=== PATIENT | female | born 1955 | race American Indian/Alaskan Native ===

== ENCOUNTER 2016-08-30 08:40 | Emergency (ER) | payer OTHER ==
[2016-08-30 10:13] LABS: Basophils % (Auto) 0.4 % (0.0-1.8); Hematocrit 33.5 % (30.3-42.9); Hemoglobin 10.9 gm/dl (10.1-14.3); Mean Corpuscular HGB Conc 32 % (30-34); Mean Corpuscular Hemoglobin 29 pg (28-32); Mean Corpuscular Volume 88 fl (79-97); Platelet Count 255 K/mm3 (140-440); Red Blood Count 3.82 M/mm3 (3.65-5.03); White Blood Count 6.2 K/mm3 (4.5-11.0)
[2016-08-30] MEDS ORDERED: NON-FORMULARY (Dolutegravir 50 MG) PO ONE (10:20)
[2016-08-30] MEDS ORDERED: VIREAD PO ONE (10:30)
[2016-08-30] MEDS ORDERED: EMTRIVA PO ONE (10:30)
[2016-08-30 10:31] LABS: Alanine Aminotransferase 15 units/L (7-56); Albumin 4.2 g/dL (3.9-5); Albumin/Globulin Ratio 1.1 %; Anion Gap 18 mmol/L; BUN/Creatinine Ratio 12.63; Blood Urea Nitrogen 24 mg/dL (7-17); Calcium 9.3 mg/dL (8.4-10.2); Carbon Dioxide 27 mmol/L (22-30); Chloride 98.6 mmol/L (98-107); Glucose 75 mg/dL (65-100); Potassium 3.6 mmol/L (3.6-5.0); Sodium 140 mmol/L (137-145); Total Protein 7.9 g/dL (6.3-8.2)
[2016-08-30 10:58] LABS: Bilirubin,Direct < 0.2 mg/dL (0-0.2)
[2016-08-30] MEDS ORDERED: NON-FORMULARY PO ONE (11:00)
[2016-08-30] MEDS ORDERED: ISENTRESS PO SCH ×3 (11:04→22:00)
[2016-08-30 11:10] LABS: HIV-1 Antigen p24 Non React (Non React); HIVR-1/2 Ab Non React (Non React)
[2016-08-30] MEDS ORDERED: CATAPRES ONE (11:35)
[2016-08-30] MEDS ORDERED: CATAPRES PO ONE (11:40)
[2016-08-30 12:00] LABS: Bacteria,Urine 1+ /HPF (Negative); Bilirubin,Urine NEG (Negative); Blood,Urine SM (Negative); Ketones,Urine NEG (Negative); Leukocyte Esterase,Urine SM (Negative); Mucus,Urine FEW /HPF; Nitrite,Urine NEG (Negative); Protein,Urine >500 mg/dL (Negative); Urobilinogen,Urine < 2.0 mg/dL (<2.0)
[2016-08-30 12:05] LABS: Alkaline Phosphatase 112 units/L (35-129)
[2016-08-30 12:50] VITALS: BP 156/101
--- NOTE | 2016-09-01 08:08 | Emergency Department Report ---
Entered by BAILEE MARQUEZ, acting as scribe for RACQUEL NORMAN PA. 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 She denies any bleeding or pain, but reports a mild tingling and burning sensation, noting the needle was a Heparin injection. Pt admits to irrigating her hand thoroughly with cold water immediately after the incident. Pt denies Hx of infectious diseases. She states she is unsure if the patient in question has any known medical problems, noting it was an approximately 60 y/o male being seen as a cardiac patient. 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 She denies chest pain, SOB, or extremity numbness or tingling. She has no additional complaints. Patient blood pressure elevated in triage. To 24/110 she denies any chest pain, headache, dizziness, nausea or vomiting, numbness or tingling, headache or shortness of breath. Patient took her hydralazine and losartan. ED Past Medical Hx - Past Medical History Previous Medical History?: Yes Hx Hypertension: Yes Hx CVA: No Hx Heart Attack/AMI: No Hx Congestive Heart Failure: No Hx Diabetes: Yes Hx Deep Vein Thrombosis: No Hx Pulmonary Embolism: No Hx GERD: No Hx Liver Disease: No Hx Renal Disease: No Hx Sickle Cell Disease: No Hx Arthritis: No Hx Headaches / Migraines: No Hx Seizures: No Hx Kidney Stones: No - Surgical History Past Surgical History?: Yes Additional Surgical History: - Family History Family history: diabetes, hypertension - Social History Smoking Status: Never Smoker Substance Use Type: None - Medications Home Medications: Home Medications Medication Instructions Recorded Confirmed Last Taken Type Acetaminophen/Codeine [Tylenol #3] 1 tab PO Q6H PRN #20 tab 09/04/14 Unknown Rx ED Review of Systems ROS: Stated complaint: EMPLOYEE/NEEDLE STICK TO R HAND Other details as noted in HPI Comment: All other systems reviewed and negative Constitutional: denies: chills, fever Eyes: denies: eye pain, eye discharge ENT: denies: ear pain, throat pain, congestion Respiratory: no symptoms reported Cardiovascular: denies: chest pain, palpitations, edema, syncope Gastrointestinal: denies: abdominal pain, nausea, vomiting, diarrhea, constipation Musculoskeletal: denies: back pain, joint swelling, arthralgia Skin: denies: rash Neurological: denies: headache, weakness, numbness, paresthesias, confusion, abnormal gait, vertigo Physical Exam - Physical Exam Vital Signs: Vital Signs 08/30/16 08:45 Temperature 98.6 F Pulse Rate 70 Respiratory 16 Rate Blood Pressure 224/110 O2 Sat by Pulse 100 Oximetry Vital Signs 08/30/16 08/30/16 08/30/16 08:45 11:42 12:49 Temperature 98.6 F 98.7 F Pulse Rate 70 74 72 Respiratory 16 16 Rate Blood Pressure 224/110 226/105 Blood Pressure 156/101 [Left] O2 Sat by Pulse 100 100 Oximetry General: This is a 61-year-old female well-nourished well-developed in no acute distress. Physical Exam: Head: Normocephalic atraumatic Mouth: Moist, no pharyngeal exudate or erythema. Uvula is midline and oral airway is patent. No facial swelling. No peritonsillar abscesses. Nose: Normal mucosa. Maxillary and frontal sinuses nontender to palpate Neck: Supple, no C-spine tenderness, no tracheal deviation. Nontender to palpate. no adenopathy Neurological: GCS 15, speech is clear and fluid, negative pronator drift, negative Romberg. Gait is normal, no facial drooping noted. 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 No sensory or motor deficit noted. Reflexes are at 2+ . Normal 2 point discrimination. Abdomen: Soft, nontender to palpate in all quadrants, normal bowel sounds in all quadrant and negative CVA tenderness bilaterally. Eyes: Bilateral pupils equal and reactive to light, bilateral EOM intact. Bilateral sclera and conjunctiva without injection. Normal accommodation. No Lungs: Clear to auscultate bilaterally no rhonchi wheezes or rales. Normal work of breathing extremity; No CCE. +2 pulses. No neurovascular compromise Cardiovascular: S1-S2, regular rate rhythm. No murmurs. Skin: clean Dry , no rash no lesions . Noted small entrance wound to right palm. No active bleeding. Psych: Normal mood and behavior ED Course Vital Signs 08/30/16 08:45 Temperature 98.6 F Pulse Rate 70 Respiratory 16 Rate Blood Pressure 224/110 O2 Sat by Pulse 100 Oximetry Vital Signs 08/30/16 08/30/16 08:45 11:42 Temperature 98.6 F Pulse Rate 70 74 Respiratory 16 Rate Blood Pressure 224/110 226/105 O2 Sat by Pulse 100 Oximetry Vital Signs 08/30/16 08/30/16 08/30/16 08:45 11:42 12:49 Temperature 98.6 F 98.7 F Pulse Rate 70 74 72 Respiratory 16 16 Rate Blood Pressure 224/110 226/105 Blood Pressure 156/101 [Left] O2 Sat by Pulse 100 100 Oximetry - Reevaluation(s) Reevaluation #1: 08/30/16 11:40 Preexposure protocol activated and patient given medication. Blood pressure was elevated initially and she took her hydralazine 50 mg and losartan 100 mg. She was asymptomatic with elevated blood pressure. Upon reevaluation of blood pressure, reported that patient blood pressure was still significantly elevated says she was given clonidine 0.2 mg and recheck her blood pressure. He remains asymptomatic. Rapid HIV 1/2 negative. 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 Reevaluation #2: 08/30/16 11:43 I communicated with warehouse packaging supervisor on several occasion regarding in preexposure protocol. I also spoke to Dr. Norman who is infectious disease and HIV specialist on-call for [facility]. He updated me on current preexposure protocol and medication. Patient to be started on Truvada. His only has split doses. The patient was given due to medication that combines to make Truvada. She is to take it every 48 hours due to her diabetes and chronic renal insufficiency. She was also given Reevaluation #3: 08/30/16 13:30 Reevaluation of blood pressure, better after clonidine. Patient instructed that she will need to keep a log of her blood pressure and schedule appointment with her primary care doctor for follow-up reevaluation. ED Medical Decision Making - Lab Data Result diagrams: 08/30/16 10:09 08/30/16 09:47 Lab Results 08/30/16 08/30/16 Range/Units 09:47 10:09 WBC 6.2 (4.5-11.0) K/mm3 RBC 3.82 (3.65-5.03) M/mm3 Hgb 10.9 (10.1-14.3) gm/dl Hct 33.5 (30.3-42.9) % MCV 88 (79-97) fl MCH 29 (28-32) pg MCHC 32 (30-34) % RDW 15.0 (13.2-15.2) % Plt Count 255 (140-440) K/mm3 Lymph % (Auto) 35.8 H (13.4-35.0) % [place] % (Auto) 15.8 H (0.0-7.3) % Eos % (Auto) 6.0 H (0.0-4.3) % Baso % (Auto) 0.4 (0.0-1.8) % Lymph # 2.2 (1.2-5.4) K/mm3 [place] # 1.0 H (0.0-0.8) K/mm3 Eos # 0.4 (0.0-0.4) K/mm3 Baso # 0.0 (0.0-0.1) K/mm3 Seg Neutrophils % 42.0 (40.0-70.0) % Seg Neutrophils # 2.6 (1.8-7.7) K/mm3 Sodium 140 (137-145) mmol/L Potassium 3.6 (3.6-5.0) mmol/L Chloride 98.6 Urinalysis and microbe pending (22-30) mmol/L Anion Gap 18 mmol/L BUN 24 H (7-17) mg/dL Creatinine 1.9 H (0.7-1.2) mg/dL Estimated GFR 33 ml/min BUN/Creatinine Ratio 12.63 % Glucose 75 (65-100) mg/dL Calcium 9.3 (8.4-10.2) mg/dL Total Bilirubin 0.20 (0.1-1.2) mg/dL Direct Bilirubin < 0.2 (0-0.2) mg/dL AST 22 (5-40) units/L ALT 15 (7-56) units/L Total Protein 7.9 (6.3-8.2) g/dL Albumin 4.2 (3.9-5) g/dL Albumin/Globulin Ratio 1.1 % HIV 1&2 Antibody Rapid Non react (Non React) HIV P24 Antigen Non react (Non React) Lab Results 08/30/16 08/30/16 08/30/16 Range/Units 09:47 10:09 Unknown WBC 6.2 (4.5-11.0) K/mm3 RBC 3.82 (3.65-5.03) M/mm3 Hgb 10.9 (10.1-14.3) gm/dl Hct 33.5 (30.3-42.9) % MCV 88 (79-97) fl MCH 29 (28-32) pg MCHC 32 (30-34) % RDW 15.0 (13.2-15.2) % Plt Count 255 (140-440) K/mm3 Lymph % (Auto) 35.8 H (13.4-35.0) % [place] % (Auto) 15.8 H (0.0-7.3) % Eos % (Auto) 6.0 H (0.0-4.3) % Baso % (Auto) 0.4 (0.0-1.8) % Lymph # 2.2 (1.2-5.4) K/mm3 [place] # 1.0 H (0.0-0.8) K/mm3 Eos # 0.4 (0.0-0.4) K/mm3 Baso # 0.0 (0.0-0.1) K/mm3 Seg Neutrophils % 42.0 (40.0-70.0) % Seg Neutrophils # 2.6 (1.8-7.7) K/mm3 Sodium 140 (137-145) mmol/L Potassium 3.6 (3.6-5.0) mmol/L Chloride 98.6 (98-107) mmol/L Carbon Dioxide 27 (22-30) mmol/L Anion Gap 18 mmol/L BUN 24 H (7-17) mg/dL Creatinine 1.9 H (0.7-1.2) mg/dL Estimated GFR 33 ml/min BUN/Creatinine Ratio 12.63 % Glucose 75 (65-100) mg/dL Calcium 9.3 (8.4-10.2) mg/dL Total Bilirubin 0.20 (0.1-1.2) mg/dL Direct Bilirubin < 0.2 (0-0.2) mg/dL AST 22 (5-40) units/L ALT 15 (7-56) units/L Alkaline Phosphatase 112 (35-129) units/L Total Protein 7.9 (6.3-8.2) g/dL Albumin 4.2 (3.9-5) g/dL Albumin/Globulin Ratio 1.1 % Urine Color Yellow (Yellow) Urine Turbidity Clear (Clear) Urine pH 5.0 (5.0-7.0) Ur Specific [place] 1.015 (1.003-1.030) Urine Protein >500 (Negative) mg/dL Urine Glucose (UA) Neg (Negative) mg/dL Urine Ketones Neg (Negative) mg/dL Urine Blood Sm (Negative) Urine Nitrite Neg (Negative) Urine Bilirubin Neg (Negative) Urine Urobilinogen < 2.0 (<2.0) mg/dL Ur Leukocyte Esterase Sm (Negative) Urine WBC (Auto) 4.0 (0.0-6.0) /HPF Urine RBC (Auto) 5.0 (0.0-6.0) /HPF U Epithel Cells (Auto) 1.0 (0-13.0) /HPF Urine Bacteria (Auto) 1+ (Negative) /HPF Urine Mucus Few /HPF HIV 1&2 Antibody Rapid Non react (Non React) HIV P24 Antigen Non react (Non React) - Medical Decision Making ED course: Patient sent here from floor after working last night. He said that she was stuck by a needle after removing trash. She said that this happened in the patient room but she is unsure whether or not the patient is a. Patient sent to emergency room to start preexposure protocol. Sent a history of diabetes and high blood pressure and her lab results revealed that her GFR is 33 , BUN 24 and creatinine is 1.9. Patient verifies that she is following an nephrology for chronic renal insufficiency. All other labs were normal except her urinalysis had greater than 500 glucose. Preexposure labs drawn and sent patient is negative for rapid HIV. Hepatic panel stable. Acute hepatitis panel sent and resulted in a couple days. Patient's CBC is stable. This was communicated to patient. Pre and post counseling done with patient. Consent signed. Preexposure protocol required patient to be treated in the emergency room with Antiviral medication. I called the [facility] and spoke with infectious disease doctor/HIV specialist and he recommended that patient starts on Truvada every 48 hours first dose to be given in emergency room once per day. This is because patient is with renal insufficiency and she is renal dosed for over 48 hours. Also patient was started on Raltegravir 400mg. Critical care attestation.: If time is entered above; I have spent that time in minutes in the direct care of this critically ill patient, excluding procedure time. ED Disposition Clinical Impression: Contact with and (suspected) exposure to other communicable diseases, Elevated blood pressure reading with diagnosis of hypertension, Glucosuria, Renal insufficiency Disposition: DISCHARGED TO HOME OR SELFCARE Is pt being admited?: No Does the pt Need Aspirin: No Condition: Stable Instructions: Needle Stick Injuries (ED), Hypertension (ED), Impaired Kidney Function (ED) Additional Instructions: Please follow up with [facility] 09/01/2015 at 8am Your linoleum tile floor layer and primary care physician to inform us new medication. Take antiviral medication as discussed. Take one tonight and one in the morning. [employer] [facility] guide juice through the process. Please keep a log of her blood pressure and take to primary care physician with [facility] as her blood pressure was elevated today Take blood pressure medication as prescribed. Referrals: Your, Carburetor Expert [Other] - 08/31/16 PRIMARY CARE, [Primary Care Provider] - 2-3 Days Employee ,[facility] [Other] - 08/31/16 8:00 am Forms: Accompanied Note, Work/School Release Form(ED) This documentation as recorded by the JIMMY sandoval AHSAN,accurately reflects the service I personally performed and the decisions made by me,RACQUEL NORMAN PA.
== END 2016-08-30 14:00 | disposition home or self-care (01) ==
LOC: ED 08:40
DX: N28.9 Disorder of kidney and ureter, unspecified (principal); I10 Essential (primary) hypertension; R81 Glycosuria; E11.9 Type 2 diabetes mellitus without complications; Z20.89 Contact with and (suspected) exposure to other communicable diseases
CPT/HCPCS: 36415; 80048; 80074; 81001; 85025; 87806; 99283; J3246

== ENCOUNTER 2018-04-16 07:31 | Emergency (ER) | payer BC, OTHER ==
[2018-04-16] MEDS ORDERED: NORMODYNE IV ONE (08:18)
[2018-04-16] MEDS ORDERED: MORPHINE IV ONE (08:18)
[2018-04-16] MEDS ORDERED: ZOFRAN IV ONE (08:18)
--- NOTE | 2018-04-16 09:21 | XRay Report ---
FINAL REPORT EXAM: XR CHEST 1V AP HISTORY: HTN TECHNIQUE: Frontal chest x-ray. PRIORS: None currently available. FINDINGS: Cardiac silhouette is within normal limits. There is no effusion. There is no pneumothorax. There is no consolidation. There are no suspicious osseous lesions. IMPRESSION: No acute cardiopulmonary findings.
[2018-04-16 09:24] LABS: Basophils # (Auto) 0.1 K/mm3 (0.0-0.1); Basophils % (Auto) 0.6 % (0.0-1.8); Eosinophils # (Auto) 0.2 K/mm3 (0.0-0.4); Eosinophils % (Auto) 2.6 % (0.0-4.3); Hematocrit 30.1 % (30.3-42.9); Mean Corpuscular HGB Conc 33 % (30-34); Mean Corpuscular Hemoglobin 29 pg (28-32); Mean Corpuscular Volume 86 fl (79-97); Monocytes % (Auto) 11.6 % (0.0-7.3); Platelet Count 246 K/mm3 (140-440); Red Blood Count 3.52 M/mm3 (3.65-5.03); Red Cell Distribution Width 16.2 % (13.2-15.2)
[2018-04-16 09:26] LABS: INR 0.75 (0.87-1.13)
[2018-04-16 09:39] LABS: Creatine Kinase MB 3.9 ng/mL (0.0-4.0)
[2018-04-16 09:40] LABS: Alanine Aminotransferase 12 units/L (7-56); Albumin 4.4 g/dL (3.9-5); BUN/Creatinine Ratio 12; Blood Urea Nitrogen 37 mg/dL (7-17); Calcium 8.9 mg/dL (8.4-10.2); Hemolysis Index 44
--- NOTE | 2018-04-16 09:44 | Emergency Department Report ---
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 She states that it's somewhat goes to the occipital area of her head and slightly down the back. Complains of tenderness to palpation of the left trapezius area. This is augmented by movement. She does not complain of any focal neurological change. She states that it feels like a "crook" in her neck. However, she states that it is very unusual for her to have any sort of neck pain. She does not have any chronic neck condition. She presented to the emergency department with significantly uncontrolled hypertension. She denied any other symptom, neurological change shortness of breath or chest pain. 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 She states she works the night before. Yesterday a.m. she went to sleep at about 10. She woke up at 3:30 and noted that she had the above neck pain. The patient denied dizziness problems with her coordination or gait numbness weakness or difficulty with speech or her vision. -: hour(s) (since yesterday) Location: head, back, left (neck pain is principal) Radiation: other (as above described) Quality: aching Consistency: intermittent Improves with: none Worsens with: movement Associated Symptoms: denies other symptoms Treatments Prior to Arrival: none - Related Data Previous Rx's Medication Instructions Recorded Last Taken Type Acetaminophen/Codeine [Tylenol #3] 1 tab PO Q6H PRN #20 tab 09/04/14 Unknown Rx Allergies Allergy/AdvReac Type Severity Reaction Status Date / Time No Known Allergies Allergy Verified 04/16/18 10:45 ED Review of Systems ROS: Stated complaint: HYPERTENSION Other details as noted in HPI Constitutional: denies: chills, fever Eyes: denies: eye pain, eye discharge, vision change ENT: denies: ear pain, throat pain Respiratory: denies: cough, shortness of breath, wheezing Cardiovascular: denies: chest pain, palpitations Endocrine: no symptoms reported Gastrointestinal: denies: abdominal pain, nausea, diarrhea Genitourinary: denies: urgency, dysuria, discharge Musculoskeletal: as per HPI. denies: joint swelling, arthralgia Skin: denies: rash, lesions Neurological: headache. denies: weakness, paresthesias Psychiatric: denies: anxiety, depression Hematological/Lymphatic: denies: easy bleeding, easy bruising ED Past Medical Hx - Past Medical History Previous Medical History?: Yes Hx Hypertension: Yes Hx CVA: No Hx Heart Attack/AMI: No Hx Congestive Heart Failure: No Hx Diabetes: Yes Hx Deep Vein Thrombosis: No Hx Pulmonary Embolism: No Hx GERD: No Hx Liver Disease: No Hx Renal Disease: No Hx Sickle Cell Disease: No Hx Arthritis: No Hx Headaches / Migraines: No Hx Seizures: No Hx Kidney Stones: No Additional medical history: Broken right leg. Chronic renal insufficiency. Hypertension - Surgical History Past Surgical History?: Yes Additional Surgical History: - Social History Smoking Status: Never Smoker Substance Use Type: None - Medications Home Medications: Home Medications Medication Instructions Recorded Confirmed Last Taken Type Acetaminophen/Codeine [Tylenol #3] 1 tab PO Q6H PRN #20 tab 09/04/14 Unknown Rx ED Physical Exam - General Limitations: No Limitations General appearance: alert, in no apparent distress - Head Head exam: Present: atraumatic, normocephalic - Eye Eye exam: Present: normal appearance - ENT ENT exam: Present: mucous membranes moist - Neck Neck exam: Present: normal inspection, tenderness, other (tenderness is really very specific to the left trapezius area and reproducible with palpation. Patient has some apprehension and full range of motion could not be tested passively. I don't think she has any meningismus though. Carotids are without bruits.). Absent: meningismus, lymphadenopathy, thyromegaly - Respiratory Respiratory exam: Present: normal lung sounds bilaterally. Absent: respiratory distress - Cardiovascular Cardiovascular Exam: Present: regular rate, normal rhythm. Absent: systolic m urmur, diastolic murmur, rubs, gallop - GI/Abdominal GI/Abdominal exam: Present: soft, normal bowel sounds. Absent: distended, tenderness, guarding, rebound, rigid - Extremities Exam Extremities exam: Present: normal inspection, normal capillary refill. Absent: calf tenderness - Back Exam Back exam: Present: normal inspection. Absent: CVA tenderness (R), CVA tenderness (L) - Neurological Exam Neurological exam: Present: alert, oriented X3, CN II-XII intact. Absent: motor sensory deficit - Psychiatric Psychiatric exam: Present: normal affect, normal mood - Skin Skin exam: Present: warm, dry, intact, normal color. Absent: rash ED Course Vital Signs 04/16/18 04/16/18 04/16/18 07:34 08:20 09:00 Temperature 97.8 F 97.8 F Pulse Rate 68 70 70 Respiratory 20 18 Rate Blood Pressure 203/88 195/88 Blood Pressure 195/88 [Right] O2 Sat by Pulse 100 99 Oximetry 04/16/18 04/16/18 04/16/18 10:17 10:30 10:46 Temperature Pulse Rate 67 68 Respiratory 13 14 Rate Blood Pressure 154/71 154/71 Blood Pressure [Right] O2 Sat by Pulse 92 98 94 Oximetry 04/16/18 04/16/18 04/16/18 11:00 11:16 11:30 Temperature Pulse Rate 73 73 71 Respiratory 13 14 18 Rate Blood Pressure 178/118 181/103 181/103 Blood Pressure [Right] O2 Sat by Pulse 96 98 96 Oximetry - Reevaluation(s) Reevaluation #1: The patient's last known well time is 10 AM on 03/26/2018. Her NIH stroke score is 0. She is not a candidate for TPA. She has an occipital stroke which may very well be subacute. I am concerned with the patient's left-sided neck pain that she may have a vertebral artery dissection. She has hypertension which is a risk factor thereof. I do not believe aortic dissection is at all likely. Her mediastinum is normal. With this in mind the patient meets criteria for urgent MR studies. I discussed this with the radiologist available. They agree as well. I am unable to ob tain urgent MR studies or any MR studies at this facility until Wednesday. I do not think that this is an acceptable delay under the circumstances. If the patient has a vertebral artery dissection treatment will vary to include possible anticoagulation. Thus, I am endeavoring to transfer the patient to [place]. I will speak with the stroke neurologist there. 04/16/18 10:57 Reevaluation #2: I had an extensive conversation with Dr. Rocha the stroke neurologist at [place]. He agreed that the patient should obtain an urgent MR study. This study is unavailable at our facility until Wednesday. As such the patient will require transfer to a comprehensive stroke center. Dr. Rocha was gracious to accept this patient for further care and evaluation. 04/16/18 11:53 ED Medical Decision Making - Lab Data Result diagrams: 04/16/18 08:57 04/16/18 08:57 Laboratory Results - last 24 hr 04/16/18 04/16/18 04/16/18 08:57 08:57 08:57 WBC 8.8 RBC 3.52 L Hgb 10.0 L Hct 30.1 L MCV 86 MCH 29 MCHC 33 RDW 16.2 H Plt Count 246 Lymph % (Auto) 23.0 [place] % (Auto) 11.6 H Eos % (Auto) 2.6 Baso % (Auto) 0.6 Lymph # 2.0 [place] # 1.0 H Eos # 0.2 Baso # 0.1 Seg Neutrophils % 62.2 Seg Neutrophils # 5.5 PT 10.9 L INR 0.75 L Thrombin Time Sodium 136 L Potassium 3.7 Chloride 98.0 Carbon Dioxide 20 L Anion Gap 22 BUN 37 H Creatinine 3.0 H Estimated GFR 19 BUN/Creatinine Ratio 12 Glucose 94 Calcium 8.9 Magnesium 1.20 L Total Bilirubin 0.30 ALT 12 Alkaline Phosphatase 108 CK-MB (CK-2) 3.9 Troponin T 0.021 NT-Pro-B Natriuret Pep 1142 H Total Protein 8.2 Albumin 4.4 Albumin/Globulin Ratio 1.2 04/16/18 08:57 WBC RBC Hgb Hct MCV MCH MCHC RDW Plt Count Lymph % (Auto) [place] % (Auto) Eos % (Auto) Baso % (Auto) Lymph # [place] # Eos # Baso # Seg Neutrophils % Seg Neutrophils # PT INR Thrombin Time 16.0 Sodium Potassium Chloride Carbon Dioxide Anion Gap BUN Creatinine Estimated GFR BUN/Creatinine Ratio Glucose Calcium Magnesium Total Bilirubin ALT Alkaline Phosphatase CK-MB (CK-2) Troponin T NT-Pro-B Natriuret Pep Total Protein Albumin Albumin/Globulin Ratio Laboratory Results - last 24 hr 04/16/18 04/16/18 04/16/18 08:57 08:57 08:57 WBC 8.8 RBC 3.52 L Hgb 10.0 L Hct 30.1 L MCV 86 MCH 29 MCHC 33 RDW 16.2 H Plt Count 246 Lymph % (Auto) 23.0 [place] % (Auto) 11.6 H Eos % (Auto) 2.6 Baso % (Auto) 0.6 Lymph # 2.0 [place] # 1.0 H Eos # 0.2 Baso # 0.1 Seg Neutrophils % 62.2 Seg Neutrophils # 5.5 PT 10.9 L INR 0.75 L APTT < 20.0 L Thrombin Time Sodium 136 L Potassium 3.7 Chloride 98.0 Carbon Dioxide 20 L Anion Gap 22 BUN 37 H Creatinine 3.0 H Estimated GFR 19 BUN/Creatinine Ratio 12 Glucose 94 Calcium 8.9 Magnesium 1.20 L Total Bilirubin 0.30 Direct Bilirubin < 0.2 Indirect Bilirubin 0.1 ALT 12 Alkaline Phosphatase 108 CK-MB (CK-2) 3.9 Troponin T 0.021 NT-Pro-B Natriuret Pep 1142 H Total Protein 8.2 Albumin 4.4 Albumin/Globulin Ratio 1.2 04/16/18 08:57 WBC RBC Hgb Hct MCV MCH MCHC RDW Plt Count Lymph % (Auto) [place] % (Auto) Eos % (Auto) Baso % (Auto) Lymph # [place] # Eos # Baso # Seg Neutrophils % Seg Neutrophils # PT INR APTT Thrombin Time 16.0 Sodium Potassium Chloride Carbon Dioxide Anion Gap BUN Creatinine Estimated GFR BUN/Creatinine Ratio Glucose Calcium Magnesium Total Bilirubin Direct Bilirubin Indirect Bilirubin ALT Alkaline Phosphatase CK-MB (CK-2) Troponin T NT-Pro-B Natriuret Pep Total Protein Albumin Albumin/Globulin Ratio - Radiology Data Radiology results: report reviewed (patient has a sizable hypodensity in the left occipital lobe.) Critical Care Time: Yes Critical care time in (mins) excluding proc time.: 90 Critical care attestation.: If time is entered above; I have spent that time in minutes in the direct care of this critically ill patient, excluding procedure time. ED Disposition Clinical Impression: Occipital stroke, Poorly-controlled hypertension, Neck pain on left side, Magnesium deficiency Disposition: OP ADMIT IP TO THIS HOSP Is pt being admited?: Yes Does the pt Need Aspirin: Yes Condition: Stable Referrals: PRIMARY CARE, [Primary Care Provider] - 3-5 Days Time of Disposition: 11:56
--- NOTE | 2018-04-16 09:55 | Cat Scan Report ---
FINAL REPORT EXAM: CT HEAD/BRAIN WO CON HISTORY: neuro deficits < 6hrs or sx present upon awakening TECHNIQUE: CT of the Head without IV contrast. PRIORS: None currently available. FINDINGS: Decreased attenuation regions in the periventricular and subcortical white matter are nonspecific and may represent small vessel ischemic disease, encephalopathy, edema, or a demyelinating process. Smal l vessel ischemic disease (leukoaroaiosis) favored. Vascular calcifications. Ill-defined 1.7 cm area of decreased attenuation at the inferior left cerebellar hemispheres may repr esent subacute to chronic ischemia. There is no hemorrhage. There is no midline shift. There is no hydrocephalus. There is no mass. Age appropriate graff-white matter attenuation is noted. There is no calvarial fracture. The temporal bones demonstrate aerated mastoid air cells. The middle ears appear unremarkable. Mild mucosal thickening in the left ethmoid sinuses. Globes are intact. IMPRESSION: Small area of subacute to chronic ischemia at the inferior left cerebellar hemisphere. Correlation wi th MRI may be helpful if clinically indicated. Also chronic ischemic disease.
--- NOTE | 2018-04-16 09:59 | Cat Scan Report ---
FINAL REPORT EXAM: CT CERVICAL SPINE WO CON HISTORY: neck pain TECHNIQUE: CT of the Cervical Spine without IV contrast. Coronal and sagittal reformatted images paul e provided. PRIORS: None currently available. FINDINGS: There is no fracture. There is no subluxation. There is no atlantooccipital dislocation. C1-C2: Mild to moderate arthritis. No subluxation. No significant canal narrowing. [id number] discogenic disease C4-C7. Minimal to mild spinal canal narrowing. Some neural forami nal narrowing. Remaining cervical levels do not demonstrate significant canal or foraminal narrowing. Prevertebral soft tissue structures are unremarkable. Heterogenous thyroid gland. A distinct nodules not evident; however, nodules are not excluded. IMPRESSION: No fracture. [id number] discogenic disease.
[2018-04-16] MEDS ORDERED: MAG-OX PO SCH (10:00)
[2018-04-16 10:03] LABS: Partial Thromboplastin Time < 20.0 Sec. (24.2-36.6)
[2018-04-16 10:10] LABS: Bilirubin,Direct < 0.2 mg/dL (0-0.2)
[2018-04-16] MEDS ORDERED: ASPIRIN PO ONE (10:25)
[2018-04-16 12:20] VITALS: BP 185/84
== END 2018-04-16 12:15 | disposition admitted as inpatient to this hospital (09) ==
LOC: ED 07:31
DX: I63.9 Cerebral infarction, unspecified (principal); M54.2 Cervicalgia; E61.2 Magnesium deficiency; E11.22 Type 2 diabetes mellitus with diabetic chronic kidney disease; I12.9 Hypertensive chronic kidney disease with stage 1 through stage 4 chronic kidney disease, or unspecified chronic kidney disease; N18.9 Chronic kidney disease, unspecified
CPT/HCPCS: 36415; 70450; 71045; 72125; 80048; 80076; 82550; 82553; 82962; 83735; 83880; 84484; 85025; 85610; 85670; 85730; 93005; 93010; 96374; 96375; 99291; 99292; J2270; J2405

== ENCOUNTER 2018-08-22 07:37 | Outpatient (CLI) | payer BC ==
[2018-08-22 08:24] LABS: Albumin 4.6 g/dL (3.9-5); Calcium 9.1 mg/dL (8.4-10.2); Chol/HDL Ratio 2.74 %
[2018-08-22 09:50] LABS: Creatinine,Urine 187.2 mg/dL (0.1-20.0)
[2018-08-22 10:04] LABS: Microalbumin/Creatinine Ratio 261.7 ug/mg
[2018-08-22 10:35] LABS: Basophils # (Auto) 0.1 K/mm3 (0.0-0.1); Basophils % (Auto) 0.9 % (0.0-1.8); Eosinophils # (Auto) 0.2 K/mm3 (0.0-0.4); Eosinophils % (Auto) 4.1 % (0.0-4.3); Hematocrit 28.4 % (30.3-42.9); Hemoglobin 9.5 gm/dl (10.1-14.3); Lymphocytes # (Auto) 2.2 K/mm3 (1.2-5.4); Lymphocytes % (Auto) 35.8 % (13.4-35.0); Mean Corpuscular HGB Conc 34 % (30-34); Mean Corpuscular Volume 87 fl (79-97); Monocytes # (Auto) 0.8 K/mm3 (0.0-0.8); Monocytes % (Auto) 12.8 % (0.0-7.3); Platelet Count 282 K/mm3 (140-440); Red Blood Count 3.26 M/mm3 (3.65-5.03); Red Cell Distribution Width 16.6 % (13.2-15.2)
== END 2018-08-22 07:38 | disposition home or self-care (01) ==
LOC: LAB 07:37
PROVIDERS: ATTEND Internal Medicine
DX: E11.9 Type 2 diabetes mellitus without complications (principal); I11.9 Hypertensive heart disease without heart failure
CPT/HCPCS: 36415; 80053; 80061; 82043; 83036; 84443; 85025

== ENCOUNTER 2020-11-13 05:46 | Day surgery (SDC) | payer BC, MEDICARE, OTHER ==
[2020-11-13] MEDS ORDERED: SODIUM CHLORIDE 0.9% 1000 ML 1,000 ML IV SCH (06:00)
[2020-11-13] MEDS ORDERED: MIDAZOLAM 2 MG/2 ML INJ IV NR (06:00)
[2020-11-13] MEDS ORDERED: fentaNYL 100 MCG/2 ML INJ IV PRN (06:00)
[2020-11-13] MEDS ORDERED: ceFAZolin/STERILE WATER 2 GM/20 ML SYRINGE IV NR (06:00)
[2020-11-13] MEDS ORDERED: rifAMPin 600 MG VIAL ONE (07:13)
[2020-11-13] MEDS ORDERED: BUPIVACAINE/PF (0.5%) 5 MG/1 ML 30 ML VIAL INFILTRATI ONE ×2 (07:13→10:17)
[2020-11-13] MEDS ORDERED: HEPARIN 10,000 UNITS/10 ML VIAL ONE (07:13)
[2020-11-13] MEDS ORDERED: SODIUM CHLORIDE 0.9% 500 ML 500 ML ONE (07:13)
[2020-11-13] MEDS ORDERED: fentaNYL 100 MCG/2 ML INJ ONE (07:29)
[2020-11-13] MEDS ORDERED: propofoL 200 MG/20 ML VIAL IV ONE ×2 (07:29→09:33)
[2020-11-13] MEDS ORDERED: ONDANSETRON 4 MG/2 ML INJ ONE (07:29)
[2020-11-13] MEDS ORDERED: LIDOCAINE MPF (2%) 20 MG/1 ML VIAL 5 ML ONE (07:29)
[2020-11-13 07:34] LABS: Hematocrit 28.2 % (30.3-42.9); Hemoglobin 9.5 gm/dl (10.1-14.3); Mean Corpuscular HGB Conc 34 % (30-34); Mean Corpuscular Volume 86 fl (79-97); Platelet Count 233 K/mm3 (140-440); Red Blood Count 3.27 M/mm3 (3.65-5.03); Red Cell Distribution Width 16.6 % (13.2-15.2)
[2020-11-13 07:45] LABS: Calcium 8.1 mg/dL (8.4-10.2)
[2020-11-13] MEDS ORDERED: BUPIVACAINE/PF (0.25%) 2.5 MG/ML 30 ML VIAL INFILTRATI ONE (08:11)
[2020-11-13] MEDS ORDERED: LIDOCAINE (1%) 10 MG/1 ML VIAL 20 ML MDV ONE (08:11)
[2020-11-13] MEDS ORDERED: SODIUM CHLORIDE 0.9% 100 ML ONE (08:21)
--- NOTE | 2020-11-13 08:29 | Anesthesia Consultation ---
Anesthesia Consult and Med Hx Date of service: 11/13/20 - Airway Anesthetic Teeth Evaluation: Good ROM Head & Neck: Adequate Mental/Hyoid Distance: Adequate Mallampati Class: Class III Intubation Access Assessment: Possibly Difficult - Pre-Operative Health Status ASA Pre-Surgery Classification: ASA3 Proposed Anesthetic Plan: MAC Nerve Block: supraclavicular - Pulmonary Hx Smoking: No Hx Respiratory Symptoms: No - Cardiovascular System Hx Hypertension: Yes (took anithypertensives this morning) Hx Heart Attack/AMI: No Hx Percutaneous Transluminal Coronary Angioplasty (PTCA): No Hx Cardia Arrhythmia: No - Central Nervous System CVA: Yes (2018?; 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
--- NOTE | 2020-11-13 08:29 | Anesthesia Day of Surgery ---
Anesthesia Day of Surgery - Day of Surgery Patient Examined: Yes Patient H&P Reviewed: Yes Patient is NPO: Yes Beta Blockers: Yes
[2020-11-13] MEDS ORDERED: SODIUM CHLORIDE 0.9% IRRIG SOLN 2000 ML IR ONE (09:09)
[2020-11-13] MEDS ORDERED: HEPARIN IR ONE (09:09)
[2020-11-13] MEDS ORDERED: SODIUM CHLORIDE 0.9% IR ONE (09:09)
[2020-11-13] MEDS ORDERED: HEPARIN 2,000 UNIT in SODIUM CHLORIDE 0.9% 500 ML 500 ML IR ONE (09:09)
[2020-11-13] MEDS ORDERED: rifAMPin 600 MG in SODIUM CHLORIDE 0.9% 50 ML IR ONE (09:10)
[2020-11-13] MEDS ORDERED: ePHEDrine SULFATE 50 MG/1 ML INJ ONE (09:18)
--- NOTE | 2020-11-13 10:27 | Operative Report ---
Operative Report Operative Report: Date of procedure: 11/13/2020 Pre-operative diagnosis: Chronic Renal Insufficiency Post-operative diagnosis: Same Procedure(s): 1. Creation of Left Brachial Artery to Axillary Vein AV Graft with 6 mm Bovine Graft Artergraft Surgeon: Aime Fuentes MD Machining Supervisor: None Anesthesia: Regional/MAC EBL: Minimal Counts: Correct Complications: None Condition: Stable Findings: Successful Creation of Left Arm AV Graft with Palpable Thrill and Palpable Radial Pulse at the Completion of the Case. Specimen: None Indication: The patient is a 65-year-old female with a history of chronic renal sufficiency who was not yet on hemodialysis. She is in need of long-term dialysis access in anticipation of hemodialysis in the near future and to prevent insertion of a permacath. She had a vein mapping that demonstrated she is not a candidate for the creation of an arteriovenous fistula so she requires a creation of an arteriovenous graft. She was given the risk, benefits, and alternative procedures and consented to the procedure. Description of Procedure: Prior to being transported to the operating room the patient had a regional block of the left arm performed. After the block was performed the patient was transported to the operating room and adequately sedated. The patient's left arm was then prepped and draped in normal sterile fashion. A longitudinal incision was made on the medial aspect of the arm just proximal to the antecubital crease and carried down to the brachial artery using sharp dissection. The brachial artery was dissected out circumferentially both proximally and distally and controlled with vessel loops. A second incision was created in longitudinal fashion on the medial aspect of the arm just distal to the axillary crease and carried down to the axillary vein using sharp dissection. Axillary vein was dissected out circumferentially and controlled with a vessel loop. I then used a Adali-Wick tunneler to tunnel from the brachial artery incision to the axillary vein incision and then pulled an 6 mm bovine through the tunnel. I infused with heparinized saline to ensure that it was not twisted or kinked. I put the brachial artery vessel loops on tension controlling the flow and then created an arteriotomy using an 11 blade and Man scissors. I beveled the graft and created an end-to-side anastomosis using 6-0 Prolene running fashion. I clamped the graft just proximal to the anastomosis and then released the vessel loops restoring flow in the brachial artery. I placed quick clot in incision to achieve hemostasis. I cut the proximal end of the graft to the appropriate length and beveled the graft in preparation for a venous anastomosis. I controlled the axillary vein a Satinsky clamp and created a venotomy using an 11 blade and Man scissors. I created an end to side anastomosis using a 6-0 Prolene in running fashion. Prior to completing the anastomosis I flushed the graft to ensure there was no thrombus and then completed the anastamosis. I released all clamps allowing flow into the AV graft which had an excellent thrill. I packed the wound with quick clot to achieve hemostasis. I closed both wounds in 2 layers using 3-0 Vicryl in running fashion in the deep dermal layer and 4-0 Monocryl in running fashion the subcuticular layer. I dressed both wounds with Dermabond. The patient tolerated the procedure well all sponge, needle, and instrument counts were correct. The patient was taken to recovery in stable condition.
--- NOTE | 2020-11-13 10:30 | Short Stay Summary ---
Short Stay Documentation Date of service: 11/13/20 Narrative H&P: See H&P - History H&P: obtained from office - Allergies and Medications Current Medications: Allergies No Known Allergies Allergy (Verified 11/01/20 15:26) Home Medications Medication Instructions Recorded Confirmed Last Taken Type Aspirin [Aspirin BABY CHEW TAB] 81 mg PO QDAY 11/01/20 11/13/20 11/13/20 05:00 History Clopidogrel [Plavix] 75 mg PO QDAY 11/01/20 11/13/20 11/13/20 05:00 History Pantoprazole [Protonix] 40 mg PO QDAY 11/01/20 11/13/20 11/13/20 05:00 History amLODIPine [Norvasc] 10 mg PO DAILY 11/01/20 11/13/20 11/13/20 05:00 History carvediloL [Coreg] 25 mg PO BID 11/01/20 11/13/20 11/13/20 05:00 History cloNIDine [Catapres] 0.1 mg PO QHS 11/01/20 11/13/20 11/12/20 09:00 History hydrALAZINE [Apresoline] 50 mg PO BID 11/01/20 11/13/20 11/13/20 05:00 History hydroCHLOROthiazide [HCTZ] 25 mg PO QDAY 11/01/20 11/13/20 11/12/20 09:00 History Active Medications Cefazolin Sodium (Cefazolin/Sterile Water 2 Gm/20 Ml Syringe) 2 gm IV PREOP NR Stop: 11/13/20 20:00 Fentanyl (Fentanyl 100 Mcg/2 Ml Inj) 100 mcg IV ONCE PRN PRN Reason: sedation for nerve block Last Admin: 11/13/20 08:10 Dose: 100 mcg Documented by: Sodium Chloride (Nacl 0.9% 1000 Ml) 1,000 mls @ 42 mls/hr IV DIRECT WILLIE Stop: 11/13/20 23:59 Last Admin: 11/13/20 08:00 Dose: 42 mls/hr Documented by: Midazolam HCl (Midazolam 2 Mg/2 Ml Inj) 2 mg IV PREOP NR Stop: 11/13/20 23:00 Last Admin: 11/13/20 09:09 Dose: 2 mg Documented by: - Brief post op/procedure progress note Date of procedure: 11/13/20 Pre-op diagnosis: Chronic Renal Insufficiency Post-op diagnosis: same Procedure: Creation of Left Brachial Artery to Left Axillary Vein Arteriovenous Graft with 6 mm Bovine Artegraft Anesthesia: MAC, regional Surgeon: GREG AGUILA Estimated blood loss: minimal Pathology: none Condition: stable - Disposition Condition at discharge: Good Disposition: DC-01 TO HOME OR SELFCARE Short Stay Discharge Plan Activity: other (No heavy lifting with left arm for 2 weeks.) Wound: open to air, keep clean and dry, other (Okay to wash the left arm wounds with soap and water but do not soak in water for 2 weeks.) Follow up with: GREG AGUILA MD [Staff Physician] - 14 Days Prescriptions: HYDROcodone/APAP 5-325 [Violet 5/325] 1 each PO Q4HR PRN #40 tablet PRN Reason: Pain
[2020-11-13 12:33] VITALS: BP 160/73
--- NOTE | 2020-11-13 13:23 | Post Anesthesia Evaluation ---
- Post Anesthesia Evaluation Patient Participated: Yes Airway Patent: Yes Stable Respiratory Function: Yes Nausea/Vomiting: No Temp > 96.8F: Yes Pain Manageable: Yes Adequeate Hydration: Yes Anesthesia Complications: No Block Receding Appropriately: Yes
== END 2020-11-13 12:20 | disposition home or self-care (01) ==
LOC: OR 05:46
PROVIDERS: ATTEND Surgery Vascular Surgery
DX: I12.0 Hypertensive chronic kidney disease with stage 5 chronic kidney disease or end stage renal disease (principal); N18.6 End stage renal disease; D64.9 Anemia, unspecified; E11.22 Type 2 diabetes mellitus with diabetic chronic kidney disease; Z98.891 History of uterine scar from previous surgery; Z98.41 Cataract extraction status, right eye; Z98.890 Other specified postprocedural states; Z98.42 Cataract extraction status, left eye; Z86.73 Personal history of transient ischemic attack (TIA), and cerebral infarction without residual deficits; Z79.899 Other long term (current) drug therapy; Z79.82 Long term (current) use of aspirin
CPT/HCPCS: 36415; 36830; 80048; 82962; 85027; A4217; C1768; J0690; J1644; J2250; J2405; J2704; J3010; J3490; J7030; J7040; J7050; 64450

== ENCOUNTER 2021-08-15 15:29 | Inpatient (IN) | payer MEDICARE ==
[2021-08-15] MEDS ORDERED: SODIUM CHLORIDE 0.9% 500 ML 500 ML IV ONE (15:51)
--- NOTE | 2021-08-15 15:54 | Emergency Department Report ---
ED Syncope HPI - General Chief Complaint: Arrhythmia/Palpitations Stated Complaint: BRADYCARDIA Time Seen by Provider: 08/15/21 15:30 Source: patient, EMS Exam Limitations: no limitations - History of Present Illness Initial Comments: Patient is a 66-year-old female that presents emergency room for a syncopal episode. Patient states that she felt lightheaded and then passed out for a brief moment. Patient states when she was aroused she had nausea and vomiting. Patient states that somebody called EMS. Patient was brought in by EMS. Report received from EMS. EMS states that the patient was found to be bradycardic and hypotensive. EMS was unable to achieve IV access. EMS states they placed the patient on a pacemaker and her blood pressure improved. EMS states that her heart rate was 40. EMS states the patient here to 80. Patient denies chest pain or shortness of breath the entire time. Patient states she is feeling better just fatigue. Patient denies recent travel. Patient denies recent international travel. Patient denies exposure to the novel coronavirus. Patient denies sick contacts. Patient denies fever and chills. Patient denies cough. Patient denies diarrhea. Patient denies coming in contact with anybody with symptoms of the novel coronavirus. Patient states he has a past medical history of hypertension and kidney disease. Patient states she has a dialysis fistula but has never started dialysis. Timing/Prior Episodes: single episode today Precipitating Factors: Positive: diaphoresis, lightheadedness, nausea Context: activity Loss of Consciousness: brief (seconds) Current Symptoms: other - Related Data Allergies/Adverse Reactions: Allergies No Known Allergies Allergy (Verified 08/15/21 15:41) Home Medications: Ambulatory Orders Aspirin [Aspirin BABY CHEW TAB] 81 mg PO QDAY 11/01/20 Clopidogrel [Plavix] 75 mg PO QDAY 11/01/20 Pantoprazole [Protonix TAB] 40 mg PO QDAY 11/01/20 amLODIPine 10 mg PO DAILY 11/01/20 carvediloL [Coreg] 25 mg PO BID 11/01/20 cloNIDine [Catapres] 0.1 mg PO QHS 11/01/20 hydrALAZINE [Apresoline TAB] 50 mg PO BID 11/01/20 hydroCHLOROthiazide [HCTZ] 25 mg PO QDAY 11/01/20 HYDROcodone/APAP 5-325 [[place] 5/325] 1 each PO Q4HR PRN #40 tablet 11/13/20 ED Review of Systems ROS: Stated complaint: BRADYCARDIA Other details as noted in HPI Constitutional: malaise. denies: chills, fever Eyes: denies: eye pain, eye discharge, vision change ENT: denies: ear pain, throat pain Respiratory: denies: cough, shortness of breath, wheezing Cardiovascular: denies: chest pain, palpitations Endocrine: no symptoms reported Gastrointestinal: as per HPI, nausea, vomiting. denies: abdominal pain, diarrhea Genitourinary: denies: urgency, dysuria, discharge Musculoskeletal: denies: back pain, joint swelling, arthralgia Skin: denies: rash, lesions Neurological: as per HPI. denies: headache, weakness, paresthesias Psychiatric: denies: anxiety, depression Hematological/Lymphatic: denies: easy bleeding, easy bruising ED Past Medical Hx - Past Medical History Previous Medical History?: Yes Hx Hypertension: Yes Hx CVA: No Hx Heart Attack/AMI: No Hx Congestive Heart Failure: No Hx Diabetes: Yes Hx Deep Vein Thrombosis: No Hx Pulmonary Embolism: No Hx GERD: No Hx Liver Disease: No Hx Renal Disease: Yes (CKD V) Hx Arthritis: No Hx Headaches / Migraines: No Hx Kidney Stones: No Hx Tuberculosis: Yes (POSITIVE IN THE PAST. NO MEDS. TAKES CXR ONCE A YEAR.) Hx HIV: No Additional medical history: Broken right leg. Chronic renal insufficiency. Hypertension - Surgical History Past Surgical History?: Yes Additional Surgical History: x1. Dialysis fistula in the left upper arm. - Family History Family history: no significant - Social History Smoking Status: Never Smoker Substance Use Type: None - Medications Home Medications: Home Medications Medication Instructions Recorded Confirmed Last Taken Type Aspirin [Aspirin BABY CHEW TAB] 81 mg PO QDAY 11/01/20 11/13/20 11/13/20 05:00 History Clopidogrel [Plavix] 75 mg PO QDAY 11/01/20 11/13/20 11/13/20 05:00 History Pantoprazole [Protonix TAB] 40 mg PO QDAY 11/01/20 11/13/20 11/13/20 05:00 History amLODIPine 10 mg PO DAILY 11/01/20 11/13/20 11/13/20 05:00 History carvediloL [Coreg] 25 mg PO BID 11/01/20 11/13/20 11/13/20 05:00 History cloNIDine [Catapres] 0.1 mg PO QHS 11/01/20 11/13/20 11/12/20 09:00 History hydrALAZINE [Apresoline TAB] 50 mg PO BID 11/01/20 11/13/20 11/13/20 05:00 History hydroCHLOROthiazide [HCTZ] 25 mg PO QDAY 11/01/20 11/13/20 11/12/20 09:00 History HYDROcodone/APAP 5-325 [[place] 1 each PO Q4HR PRN #40 tablet 11/13/20 Unknown Rx 5/325] ED Physical Exam - General Limitations: No Limitations General appearance: alert, in no apparent distress - Head Head exam: Present: atraumatic, normocephalic - Eye Eye exam: Present: normal appearance - ENT ENT exam: Present: mucous membranes moist - Neck Neck exam: Present: normal inspection - Respiratory Respiratory exam: Present: normal lung sounds bilaterally. Absent: respiratory distress - Cardiovascular Cardiovascular Exam: Present: regular rate, normal rhythm. Absent: systolic murmur, diastolic murmur, rubs, gallop - GI/Abdominal GI/Abdominal exam: Present: soft, normal bowel sounds - Extremities Exam Extremities exam: Present: normal inspection - Back Exam Back exam: Present: normal inspection - Neurological Exam Neurological exam: Present: alert, oriented X3 - Psychiatric Psychiatric exam: Present: normal affect, normal mood - Skin Skin exam: Present: warm, dry, intact, normal color. Absent: rash ED Course Vital Signs 08/15/21 08/15/21 08/15/21 15:40 15:46 16:00 Temperature 97.9 F Pulse Rate 80 56 L 55 L Respiratory 16 18 11 L Rate Blood Pressure 122/52 Blood Pressure 117/50 [Left] O2 Sat by Pulse 100 97 Oximetry 08/15/21 08/15/21 08/15/21 16:16 16:34 16:48 Temperature Pulse Rate 56 L 55 L 59 L Respiratory 22 21 16 Rate Blood Pressure 122/52 122/52 Blood Pressure [Left] O2 Sat by Pulse 96 95 97 Oximetry 08/15/21 08/15/21 08/15/21 17:00 17:16 17:30 Temperature Pulse Rate 58 L 58 L 58 L Respiratory 20 19 20 Rate Blood Pressure 146/62 137/57 137/57 Blood Pressure [Left] O2 Sat by Pulse 100 98 98 Oximetry 08/15/21 08/15/21 08/15/21 17:40 17:50 18:00 Temperature Pulse Rate 58 L 57 L 61 Respiratory 17 17 18 Rate Blood Pressure 145/60 145/60 150/65 Blood Pressure [Left] O2 Sat by Pulse 100 100 100 Oximetry 08/15/21 08/15/21 08/15/21 18:10 18:20 18:30 Temperature Pulse Rate 61 59 L 61 Respiratory 19 20 10 L Rate Blood Pressure 150/65 143/59 143/59 Blood Pressure [Left] O2 Sat by Pulse 99 100 100 Oximetry 08/15/21 08/15/21 08/15/21 18:40 18:50 19:00 Temperature Pulse Rate 61 60 63 Respiratory 16 12 18 Rate Blood Pressure 152/60 152/60 152/58 Blood Pressure [Left] O2 Sat by Pulse 100 100 99 Oximetry 08/15/21 08/15/21 08/15/21 19:10 19:20 19:31 Temperature Pulse Rate 63 62 62 Respiratory 14 21 19 Rate Blood Pressure 152/58 169/64 Blood Pressure [Left] O2 Sat by Pulse 99 100 98 Oximetry 08/15/21 08/15/21 08/15/21 19:41 19:51 20:01 Temperature Pulse Rate 62 63 63 Respiratory 19 22 20 Rate Blood Pressure 160/61 160/61 182/74 Blood Pressure [Left] O2 Sat by Pulse 100 99 99 Oximetry 08/15/21 08/15/21 08/15/21 20:11 20:21 20:31 Temperature Pulse Rate 65 64 65 Respiratory 19 20 21 Rate Blood Pressure 182/74 183/76 183/76 Blood Pressure [Left] O2 Sat by Pulse 98 99 99 Oximetry 08/15/21 08/15/21 08/15/21 20:41 20:51 21:01 Temperature Pulse Rate 64 64 64 Respiratory 22 15 20 Rate Blood Pressure 183/76 183/76 183/76 Blood Pressure [Left] O2 Sat by Pulse 99 98 99 Oximetry 08/15/21 08/15/21 08/15/21 21:11 21:21 21:31 Temperature Pulse Rate 64 64 64 Respiratory 22 19 20 Rate Blood Pressure 183/76 183/76 183/76 Blood Pressure [Left] O2 Sat by Pulse 99 100 98 Oximetry 08/15/21 08/15/21 08/15/21 21:41 21:51 22:01 Temperature Pulse Rate 64 64 63 Respiratory 18 22 21 Rate Blood Pressure 137/57 137/57 137/57 Blood Pressure [Left] O2 Sat by Pulse 99 100 99 Oximetry 08/15/21 08/15/21 08/15/21 22:11 22:21 22:31 Temperature Pulse Rate 64 63 63 Respiratory 22 18 16 Rate Blood Pressure 180/69 188/73 188/73 Blood Pressure [Left] O2 Sat by Pulse 97 97 99 Oximetry 08/15/21 22:36 Temperature Pulse Rate 64 Respiratory Rate Blood Pressure 180/79 Blood Pressure [Left] O2 Sat by Pulse Oximetry - Reevaluation(s) Reevaluation #1: Patient is connected to our bakery clerk. Patient disconnected from the EMS pacer, Patient's heart rate is 56. Patient blood pressure is 120/60. Patient denies chest pain or shortness of breath. At this time the patient does not require pacing. But we will leave a pacer at bedside along with atropine. 08/15/21 15:35 Reevaluation #2: Patient states she is feeling fine. Patient states she still feeling fatigued. Patient denies chest pain or shortness of breath. Patient's vital signs are being monitored and stable. 08/15/21 16:01 Reevaluation #3: Patient denies chest pain or shortness of breath. Patient is on the bakery clerk. Patient's vital signs are stable. Patient still bradycardic in the 50s. 08/15/21 17:31 Reevaluation #4: I discussed all results with patient. I discussed plan of care with patient. Patient agrees with plan of care and admission. Patient to be admitted to the hospitalist service. 08/15/21 17:52 - Consultations Consultation #1: Hospitalist consulted for admission. Hospitalist to admit patient. 08/15/21 17:51 ED Medical Decision Making - Lab Data Result diagrams: 08/15/21 20:18 08/15/21 20:18 - EKG Data -: EKG Interpreted by Me EKG shows normal: sinus rhythm, axis, intervals, QRS complexes, ST-T waves Rate: bradycardia - Radiology Data Radiology results: report reviewed, image reviewed CHEST 1 VIEW 08/15/2021 4:07 PM INDICATION / CLINICAL INFORMATION: syncope. COMPARISON: One view of the chest from 04/16/2018. FINDINGS: SUPPORT DEVICES: None. HEART / MEDIASTINUM: No significant abnormality. LUNGS / PLEURA: No significant pulmonary abnormality. No significant pleural effusion. No pneumothorax. ADDITIONAL FINDINGS: No significant additional findings. IMPRESSION: 1. No acute abnormality of the chest. CT head/brain wo con INDICATION: syncope. TECHNIQUE: All CT scans at this location are performed using CT dose reduction for ALARA by means of automated exposure control. COMPARISON: Head CT on 04/16/2018 FINDINGS: There is no acute hemorrhage, brain edema, or hydrocephalus. 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 There is stable mild global atrophy. Visualized extracranial structures appear unremarkable. IMPRESSION: 1. No acute intracranial abnormality. - Medical Decision Making Patient is a 66-year-old female who presents emergency room with syncopal episode, hypotension and bradycardia. Patient brought in by EMS. EMS placed the patient on a pacer bradycardia and hypotension. Patient's blood pressure and heart rate improved with the patient. EMS was unable to establish IV access. Patient had IV access established upon initial evaluation. However during this evaluation the patient's vital signs were checked and the patient's heart rate was 56 and the patient blood pressure was stabilized. Patient still given IV fluids. Patient was disconnected from the EMS pacer and a pacer was only left at bedside and never reattached because the patient's heart rate stabilized and did not require further pacing. Patient had a head CT was negative for acute acute findings. Patient had a chest x-ray which was negative for acute findings. Patient EKG which shows sinus bradycardia. Patient had labs done which were consistent with chronic kidney disease. Patient found to have an elevated troponin. Patient's elevated troponin is most likely secondary to kidney disease. Patient admitted to the hospital service for further evaluation treatment. Cardiology consulted. Critical care time documented due to the multiple reassessments, prolonged time at the bedside, interpretation of diagnostics and labs and discussion with consultants.. - Differential Diagnosis Syncope, symptomatic bradycardia, hypotension, dehydration, electrolyte imb Critical Care Time: Yes Critical care time in (mins) excluding proc time.: 35 Critical care attestation.: If time is entered above; I have spent that time in minutes in the direct care of this critically ill patient, excluding procedure time. Critical Care Time: 35 minutes ED Disposition Clinical Impression: Symptomatic bradycardia, Lightheadedness, Elevated troponin Syncope Qualifiers: Syncope type: unspecified Qualified Code(s): R55 - Syncope and collapse Hypotension Qualifiers: Hypotension type: unspecified hypotension type Qualified Code(s): I95.9 - Hypotension, unspecified CKD (chronic kidney disease) Qualifiers: Chronic kidney disease stage: stage 5, not on chronic dialysis Qualified Code(s): N18.5 - Chronic kidney disease, stage 5 Disposition: 09 ADMITTED INPATIENT Is pt being admited?: Yes Does the pt Need Aspirin: No Condition: Critical Time of Disposition: 17:51
--- NOTE | 2021-08-15 16:31 | XRay Report ---
CHEST 1 VIEW 08/15/2021 4:07 PM INDICATION / CLINICAL INFORMATION: syncope. COMPARISON: One view of the chest from 04/16/2018. FINDINGS: SUPPORT DEVICES: None. HEART / MEDIASTINUM: No significant abnormality. LUNGS / PLEURA: No significant pulmonary abnormality. No significant pleural effusion. No pneumothora x. ADDITIONAL FINDINGS: No significant additional findings. IMPRESSION: 1. No acute abnormality of the chest. Signer Name: Flaco Núñez MD Signed: 08/15/2021 4:26 PM Workstation Name: [id number]
[2021-08-15 16:46] LABS: Albumin 4.1 g/dL (3.9-5); Calcium 8.5 mg/dL (8.4-10.2)
--- NOTE | 2021-08-15 16:49 | Cat Scan Report ---
CT head/brain wo con INDICATION: syncope. TECHNIQUE: All CT scans at this location are performed using CT dose reduction for ALARA by means of automated e xposure control. COMPARISON: Head CT on 04/16/2018 FINDINGS: There is no acute hemorrhage, brain edema, or hydrocephalus. 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 There is stable mild global atrophy. Visualized extracranial structures appear unremarkable. IMPRESSION: 1. No acute intracranial abnormality. Signer Name: Mitch Yeh MD Signed: 08/15/2021 4:43 PM Workstation Name: [id number]
[2021-08-15 17:06] LABS: Hematocrit 26.4 % (30.3-42.9); Hemoglobin 8.8 gm/dl (10.1-14.3); Mean Corpuscular HGB Conc 33 % (30-34); Mean Corpuscular Volume 91 fl (79-97); Red Blood Count 2.92 M/mm3 (3.65-5.03); Red Cell Distribution Width 15.8 % (13.2-15.2)
[2021-08-15 17:08] LABS: Chol/HDL Ratio 4.22 %
[2021-08-15 17:53] LABS: Band Neutrophils # (Manual) 0.2 K/mm3; Basophils % (Manual) 0 % (0.0-1.8); Total Cells Counted 100
[2021-08-15 17:57] LABS: Anisocytosis Few
[2021-08-15 17:58] LABS: Burr Cells Few; Ovalocytes Few; Poikilocytosis Few
[2021-08-15 17:59] LABS: Platelet Count 155 K/mm3 (140-440); Platelet Estimate Consistent w Auto
[2021-08-15] MEDS ORDERED: ACETAMINOPHEN 325 MG TAB PO PRN (19:52)
[2021-08-15] MEDS ORDERED: ONDANSETRON 4 MG/2 ML INJ IV PRN (19:52)
[2021-08-15] MEDS ORDERED: oxyCODONE /ACETAMINOPHEN 5-325MG TAB PO PRN (19:53)
[2021-08-15] MEDS ORDERED: METOCLOPRAMIDE 10 MG/2 ML INJ IV PRN (19:53)
[2021-08-15] MEDS ORDERED: MORPHINE 2 MG/1 ML INJ IV PRN (19:53)
[2021-08-15] MEDS ORDERED: SODIUM CHLORIDE 0.9% 1000 ML 1,000 ML IV SCH (20:00)
--- NOTE | 2021-08-15 20:01 | History and Physical Report ---
History of Present Illness Date of examination: 08/15/21 Date of admission: August 15, 2021 Chief complaint: Syncope History of present illness: 66-year-old female with history of hypertension, type 2 diabetes and chronic kidney disease felt lightheaded and passed out for a brief moment. When she woke up patient did not have any nausea or vomiting. 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 EMS states that the patient was bradycardic and hypotensive. EMS placed the patient pacemaker and blood pressure improved. Apparently heart rate was in the low 50s. No telemetry strip is available. In the emergency room blood pressure normalized and pacemaker was removed. Heart rate also improved to mid 60s to mid 70s. No chest pain. - Past Medical History Previous Medical History?: Yes Hx Hypertension: Yes Hx Diabetes: Yes Hx Renal Disease: Yes (CKD V) Hx Tuberculosis: Yes (POSITIVE IN THE PAST. NO MEDS. TAKES CXR ONCE A YEAR.) Additional medical history: Broken right leg. Chronic renal insufficiency. H ypertension - Surgical History Past Surgical History?: Yes Additional Surgical History: x1. Dialysis fistula in the left upper arm. - Family History Family history: no significant - Social History Smoking Status: Never Smoker Substance Use Type: None Review of Systems ROS: Stated complaint: BRADYCARDIA Other details as noted in HPI Constitutional: malaise. denies: chills, fever Eyes: denies: eye pain, eye discharge, vision change ENT: denies: ear pain, throat pain Respiratory: denies: cough, shortness of breath, wheezing Cardiovascular: denies: chest pain, palpitations Endocrine: no symptoms reported Gastrointestinal: as per HPI, nausea, vomiting. denies: abdominal pain, diarrhea Genitourinary: denies: urgency, dysuria, discharge Musculoskeletal: denies: back pain, joint swelling, arthralgia Skin: denies: rash, lesions Neurological: as per HPI. denies: headache, weakness, paresthesias Psychiatric: denies: anxiety, depression Hematological/Lymphatic: denies: easy bleeding, easy bruising Medications and Allergies Allergies Allergy/AdvReac Type Severity Reaction Status Date / Time No Known Allergies Allergy Verified 08/15/21 15:41 Home Medications Medication Instructions Recorded Confirmed Last Taken Type Aspirin [Aspirin BABY CHEW TAB] 81 mg PO QDAY 11/01/20 11/13/20 11/13/20 05:00 History Clopidogrel [Plavix] 75 mg PO QDAY 11/01/20 11/13/20 11/13/20 05:00 History Pantoprazole [Protonix TAB] 40 mg PO QDAY 11/01/20 11/13/20 11/13/20 05:00 History amLODIPine 10 mg PO DAILY 11/01/20 11/13/20 11/13/20 05:00 History carvediloL [Coreg] 25 mg PO BID 11/01/20 11/13/20 11/13/20 05:00 History cloNIDine [Catapres] 0.1 mg PO QHS 11/01/20 11/13/20 11/12/20 09:00 History hydrALAZINE [Apresoline TAB] 50 mg PO BID 11/01/20 11/13/20 11/13/20 05:00 History hydroCHLOROthiazide [HCTZ] 25 mg PO QDAY 11/01/20 11/13/20 11/12/20 09:00 H istory HYDROcodone/APAP 5-325 [[place] 1 each PO Q4HR PRN #40 tablet 11/13/20 Unknown Rx 5/325] Exam - Constitutional Vitals: Temp Pulse Resp BP Pulse Ox 97.9 F 58 L 19 137/57 98 08/15/21 15:40 08/15/21 17:16 08/15/21 17:16 08/15/21 17:16 08/15/21 17:16 General appearance: Present: no acute distress, well-nourished - EENT Eyes: Present: PERRL ENT: hearing intact, clear oral mucosa - Neck Neck: Present: supple, normal ROM - Respiratory Respiratory effort: normal Respiratory: bilateral: CTA - Cardiovascular Heart rate: 65 Rhythm: regular Heart Sounds: Present: S1 & S2. Absent: rub, click - Extremities Extremities: pulses symmetrical, No edema Peripheral Pulses: within normal limits - Abdominal General gastrointestinal: Present: soft, non-tender, non-distended, normal bowel sounds Female genitourinary: Present: normal - Integumentary Integumentary: Present: clear, warm, dry - Musculoskeletal Musculoskeletal: gait normal, strength equal bilaterally - Psychiatric Psychiatric: appropriate mood/affect, intact judgment & insight - Neurologic Neurologic: CNII-XII intact, moves all extremities - Allied Health Allied health notes reviewed: nursing, case management HEART Score - HEART Score History: Moderately suspicious Age: > 65 Troponin: Troponin T 0.143 ng/mL (0.00-0.029) H* 08/15/21 15:59 Troponin: 1-3x normal limit - Critical Actions Critical Actions: 0-3 pts:0.9-1.7%risk of adverse cardiac event.Candidate for discharge Results - Labs CBC & Chem 7: 08/15/21 20:18 08/15/21 20:18 Labs: Laboratory Last Values WBC 5.1 K/mm3 (4.5-11.0) 08/15/21 15:59 RBC 2.92 M/mm3 (3.65-5.03) L 08/15/21 15:59 Hgb 8.8 gm/dl (10.1-14.3) L 08/15/21 15:59 Hct 26.4 % (30.3-42.9) L 08/15/21 15:59 MCV 91 fl (79-97) 08/15/21 15:59 MCH 30 pg (28-32) 08/15/21 15:59 MCHC 33 % (30-34) 08/15/21 15:59 RDW 15.8 % (13.2-15.2) H 08/15/21 15:59 Plt Count 155 K/mm3 (140-440) 08/15/21 15:59 Lymph % (Auto) Bone Drier 08/15/21 15:59 [place] % (Auto) Bone Drier 08/15/21 15:59 Eos % (Auto) Bone Drier 08/15/21 15:59 Baso % (Auto) Bone Drier 08/15/21 15:59 Lymph # (Auto) Bone Drier 08/15/21 15:59 [place] # (Auto) Bone Drier 08/15/21 15:59 Eos # (Auto) Bone Drier 08/15/21 15:59 Baso # (Auto) Bone Drier 08/15/21 15:59 Add Manual Diff Complete 08/15/21 15:59 Total Counted 100 08/15/21 15:59 Seg Neutrophils % Bone D[place] 08/15/21 15:59 Seg Neuts % (Manual) 62.0 % (40.0-70.0) 08/15/21 15:59 Band Neutrophils % 3.0 % 08/15/21 15:59 Lymphocytes % (Manual) 23.0 % (13.4-35.0) 08/15/21 15:59 Reactive Lymphs % (Man) 0 % 08/15/21 15:59 Monocytes % (Manual) 10.0 % (0.0-7.3) H 08/15/21 15:59 Eosinophils % (Manual) 2.0 % (0.0-4.3) 08/15/21 15:59 Basophils % (Manual) 0 % (0.0-1.8) 08/15/21 15:59 Metamyelocytes % 0 % 08/15/21 15:59 Myelocytes % 0 % 08/15/21 15:59 Promyelocytes % 0 % 08/15/21 15:59 Blast Cells % 0 % 08/15/21 15:59 Nucleated RBC % Not Reportable 08/15/21 15:59 Seg Neutrophils # Bone Drier 08/15/21 15:59 Seg Neutrophils # Man 3.2 K/mm3 (1.8-7.7) 08/15/21 15:59 Band Neutrophils # 0.2 K/mm3 08/15/21 15:59 Lymphocytes # (Manual) 1.2 K/mm3 (1.2-5.4) 08/15/21 15:59 Abs React Lymphs (Man) 0.0 K/mm3 08/15/21 15:59 Monocytes # (Manual) 0.5 K/mm3 (0.0-0.8) 08/15/21 15:59 Eosinophils # (Manual) 0.1 K/mm3 (0.0-0.4) 08/15/21 15:59 Basophils # (Manual) 0.0 K/mm3 (0.0-0.1) 08/15/21 15:59 Metamyelocytes # 0.0 K/mm3 08/15/21 15:59 Myelocytes # 0.0 K/mm3 08/15/21 15:59 Promyelocytes # 0.0 K/mm3 08/15/21 15:59 Blast Cells # 0.0 K/mm3 08/15/21 15:59 WBC Morphology Not Reportable 08/15/21 15:59 Hypersegmented Neuts Not Reportable 08/15/21 15:59 Hyposegmented Neuts Not Reportable 08/15/21 15:59 Hypogranular Neuts Not Reportable 08/15/21 15:59 Smudge Cells Not Reportable 08/15/21 15:59 Toxic Granulation Not Reportable 08/15/21 15:59 Toxic Vacuolation Not Reportable 08/15/21 15:59 Dohle Bodies Not Reportable 08/15/21 15:59 Pelger-Huet Anomaly Not Reportable 08/15/21 15:59 Leila Rods Not Reportable 08/15/21 15:59 Platelet Estimate Consistent w auto 08/15/21 15:59 Clumped Platelets Not Reportable 08/15/21 15:59 Plt Clumps, EDTA Not Reportable 08/15/21 15:59 Large Platelets Not Reportable 08/15/21 15:59 Giant Platelets Not Reportable 08/15/21 15:59 Platelet Satelliting Not Reportable 08/15/21 15:59 Plt Morphology Comment Not Reportable 08/15/21 15:59 RBC Morphology Not Reportable 08/15/21 15:59 Dimorphic RBCs Not Reportable 08/15/21 15:59 Polychromasia Not Reportable 08/15/21 15:59 Hypochromasia Not Reportable 08/15/21 15:59 Poikilocytosis Few 08/15/21 15:59 Anisocytosis Few 08/15/21 15:59 Microcytosis Not Reportable 08/15/21 15:59 Macrocytosis Not Reportable 08/15/21 15:59 Spherocytes Not Reportable 08/15/21 15:59 Pappenheimer Bodies Not Reportable 08/15/21 15:59 Sickle Cells Not Reportable 08/15/21 15:59 Target Cells Not Reportable 08/15/21 15:59 Tear Drop Cells Not Reportable 08/15/21 15:59 Ovalocytes Few 08/15/21 15:59 Helmet Cells Not Reportable 08/15/21 15:59 Weber-[place] Bodies Not Reportable 08/15/21 15:59 [place] Rings Not Reportable 08/15/21 15:59 Eli Cells Few 08/15/21 15:59 Bite Cells Not Reportable 08/15/21 15:59 Crenated Cell Not Reportable 08/15/21 15:59 Elliptocytes Not Reportable 08/15/21 15:59 Acanthocytes (Spur) Not Reportable 08/15/21 15:59 Rouleaux Not Reportable 08/15/21 15:59 Hemoglobin C Crystals Not Reportable 08/15/21 15:59 Schistocytes Not Reportable 08/15/21 15:59 Malaria parasites Not Reportable 08/15/21 15:59 [place] Bodies Not Reportable 08/15/21 15:59 Hem Pathologist Commnt No 08/15/21 15:59 Sodium 135 mmol/L (137-145) L 08/15/21 15:59 Potassium 3.6 mmol/L (3.6-5.0) 08/15/21 15:59 Chloride 95.9 mmol/L (98-107) L 08/15/21 15:59 Carbon Dioxide 17 mmol/L (22-30) L 08/15/21 15:59 Anion Gap 26 mmol/L 08/15/21 15:59 BUN 79 mg/dL (7-17) H 08/15/21 15:59 Creatinine 8.2 mg/dL (0.6-1.2) H 08/15/21 15:59 Estimated GFR 6 ml/min 08/15/21 15:59 BUN/Creatinine Ratio 10 % 08/15/21 15:59 Glucose 246 mg/dL (65-100) H 08/15/21 15:59 Calcium 8.5 mg/dL (8.4-10.2) 08/15/21 15:59 Total Bilirubin 0.40 mg/dL (0.1-1.2) 08/15/21 15:59 AST 30 units/L (5-40) 08/15/21 15:59 ALT 54 units/L (7-56) 08/15/21 15:59 Alkaline Phosphatase 79 units/L (35-129) 08/15/21 15:59 Troponin T 0.143 ng/mL (0.00-0.029) H* 08/15/21 15:59 Total Protein 7.4 g/dL (6.3-8.2) 08/15/21 15:59 Albumin 4.1 g/dL (3.9-5) 08/15/21 15:59 Albumin/Globulin Ratio 1.2 % 08/15/21 15:59 Triglycerides 192 mg/dL (2-149) H 08/15/21 15:59 Cholesterol 245 mg/dL (50-199) H 08/15/21 15:59 LDL Cholesterol Direct 144 mg/dL (50-130) H 08/15/21 15:59 HDL Cholesterol 58 mg/dL (40-59) 08/15/21 15:59 Cholesterol/HDL Ratio 4.22 % 08/15/21 15:59 - Imaging and Cardiology EKG: report reviewed (Sinus rhythm no acute ST-T wave changes) Assessment and Plan Advance Directives: Yes (Full code) VTE prophylaxis?: Chemical Plan of care discussed with patient/family: Yes - Patient Problems (1) Symptomatic bradycardia Current Visit: Yes Status: Acute Plan to address problem: Probably vasovagal Patient improved with IV fluids Temporary pacemaker was removed Cardiology consult requested Telemetry monitoring (2) Syncope Current Visit: Yes Status: Acute Qualifiers: Syncope type: unspecified Qualified Code(s): R55 - Syncope and collapse Plan to address problem: Autonomic dysfunction Probably vasovagal Syncope work-up in the form of carotid duplex and echocardiogram and serial troponins Cardiology consult requested Possible discharge in 24 to 48 hours (3) Hypertension Current Visit: Yes Status: Chronic Qualifiers: Hypertension type: primary hypertension Qualified Code(s): I10 - Essential (primary) hypertension Plan to address problem: Continue antihypertensives (4) CKD (chronic kidney disease) Current Visit: Yes Status: Chronic Qualifiers: Chronic kidney disease stage: stage 5, not on chronic dialysis Qualified Code(s): N18.5 - Chronic kidney disease, stage 5 Plan to address problem: Patient has AV fistula Not undergoing hemodialysis Her creatinine is very high now Follows with Dr. Quintana Nephrology consulted (5) Anemia Current Visit: Yes Status: Chronic Qualifiers: Anemia type: due to chronic kidney disease Chronic kidney disease stage: stage 5, not on chronic dialysis Qualified Code(s): N18.5 - Chronic kidney disease, stage 5; D63.1 - Anemia in chronic kidney disease Plan to address problem: Secondary to chronic kidney disease No further work-up (6) DVT prophylaxis Current Visit: Yes Status: Acute Plan to address problem: On anticoagulation GI prophylaxis (7) Advance care planning Current Visit: Yes Status: Acute Plan to address problem: Disease education conducted, care plan discussed, diagnosis discussed, consent discussed. Patient is full code. Patient acknowledged understanding and agreement with care plan. +30 minutes.
[2021-08-15 20:29] LABS: Basophils % (Auto) 0.6 % (0.0-1.8); Eosinophils % (Auto) 0.6 % (0.0-4.3); Hematocrit 23.5 % (30.3-42.9); Lymphocytes # (Auto) 0.8 K/mm3 (1.2-5.4); Lymphocytes % (Auto) 21.5 % (13.4-35.0); Mean Corpuscular HGB Conc 34 % (30-34); Mean Corpuscular Volume 89 fl (79-97); Monocytes # (Auto) 0.6 K/mm3 (0.0-0.8); Monocytes % (Auto) 15.5 % (0.0-7.3); Platelet Count 136 K/mm3 (140-440); Red Blood Count 2.64 M/mm3 (3.65-5.03); Red Cell Distribution Width 15.5 % (13.2-15.2)
[2021-08-15 20:45] LABS: Albumin 3.7 g/dL (3.9-5); Calcium 8.1 mg/dL (8.4-10.2)
[2021-08-15] MEDS: PANTOPRAZOLE 40 MG TAB PO SCH (22:36)
[2021-08-15] MEDS: hydrALAZINE 25 MG TAB PO SCH (22:36)
[2021-08-15] MEDS: CLOPIDOGREL 75 MG TAB PO SCH (23:08)
[2021-08-15] MEDS: ASPIRIN 81 MG TAB CHEW PO SCH (23:09)
[2021-08-15] MEDS: HEPARIN 5,000 UNIT/1 ML VIAL SUB-Q SCH (23:13)
[2021-08-15] MEDS: VALSARTAN 160MG TAB PO SCH (23:19)
[2021-08-15] MEDS: hydroCHLOROthiazide 25 MG TAB PO SCH (23:20)
[2021-08-15] MEDS: amLODIPine 10 MG TAB PO SCH (23:20)
--- NOTE | 2021-08-16 07:30 | Progress Note ---
Assessment and Plan Assessment and plan: -- Symptomatic bradycardia Current Visit: Yes Status: Acute Heart rate and 50s to 60s, Patient's beta-blockers and clonidine held Cardiology consulted Monitor closely and adjust the management as needed --Non-ST elevation VA[probably type II] Current Visit: Yes Status: Acute In the setting of chronic kidney disease However patient has risk factors, cardiology already consulted -- Syncope/autonomic dysfunction Current Visit: Yes Status: Acute Probably due to bradycardia Fall precautions, syncope work-up CT head without contrast no acute abnormality Follow echocardiogram, carotid Doppler Follow cardiology evaluation recommendations --Chronic kidney disease; stage V Current Visit: Yes Status: Acute Patient has AV fistula in her arm But never received hemodialysis Renal consult for possible dialysis if needed Avoid nephrotoxins, renal dosing of medications --Malignant hypertension Current Visit: Yes Status: Acute Resume home antihypertensives, as needed hydralazine Closely monitor --Hypokalemia; Current Visit: Yes Status: Acute Management per nephrology Will replenish if patient is not going for dialysis --Full CODE STATUS -- DVT prophylaxis Current Visit: Yes Status: Acute Subcu heparin renal dose --Advance care planning Current Visit: Yes Status: Acute Patient management as needed Plan of care patient patient and nurse Closely monitor the patient and adjust management as needed Plan of care reviewed with patient and her nurse Transfer Worker recommendations noted and appreciated Possible discharge in 1 to 2 days if stable History Interval history: I have seen and examined the patient at the bedside this morning Patient's chart and medications reviewed No new events reported by the nursing Patient admitted with chronic kidney disease stage V, has AV fistula already on the arm Nephrology did not initiate dialysis Patient feels slightly better Nephrology and cardiology consulted Hospitalist Physical - Constitutional Vitals: Temp Pulse Resp BP Pulse Ox 98.3 F 61 16 171/63 99 08/16/21 04:08 08/16/21 04:08 08/16/21 04:08 08/16/21 04:08 08/16/21 04:08 General appearance: Present: no acute distress, well-nourished - EENT Eyes: Present: PERRL, EOM intact - Neck Neck: Present: supple, normal ROM - Respiratory Respiratory effort: normal, labored - Cardiovascular Rhythm: regular Heart Sounds: Present: S1 & S2 - Extremities Extremities: no ischemia, No edema - Abdominal General gastrointestinal: soft, non-tender - Integumentary Integumentary: Present: clear, warm - Psychiatric Psychiatric: appropriate mood/affect, cooperative - Neurologic Neurologic: moves all extremities HEART Score - HEART Score Age: > 65 Troponin: Troponin T 0.098 ng/mL (0.00-0.029) H 08/16/21 04:14 Troponin: 1-3x normal limit - Critical Actions Critical Actions: 0-3 pts:0.9-1.7%risk of adverse cardiac event.Candidate for discharge Results - Labs CBC & Chem 7: 08/15/21 20:18 08/15/21 20:18 Labs: Laboratory Last Values WBC 3.8 K/mm3 (4.5-11.0) L 08/15/21 20:18 RBC 2.64 M/mm3 (3.65-5.03) L 08/15/21 20:18 Hgb 8.0 gm/dl (10.1-14.3) L 08/15/21 20:18 Hct 23.5 % (30.3-42.9) L 08/15/21 20:18 MCV 89 fl (79-97) 08/15/21 20:18 MCH 30 pg (28-32) 08/15/21 20:18 MCHC 34 % (30-34) 08/15/21 20:18 RDW 15.5 % (13.2-15.2) H 08/15/21 20:18 Plt Count 136 K/mm3 (140-440) L 08/15/21 20:18 Lymph % (Auto) 21.5 % (13.4-35.0) 08/15/21 20:18 [place] % (Auto) 15.5 % (0.0-7.3) H 08/15/21 20:18 Eos % (Auto) 0.6 % (0.0-4.3) 08/15/21 20:18 Baso % (Auto) 0.6 % (0.0-1.8) 08/15/21 20:18 Lymph # (Auto) 0.8 K/mm3 (1.2-5.4) L 08/15/21 20:18 [place] # (Auto) 0.6 K/mm3 (0.0-0.8) 08/15/21 20:18 Eos # (Auto) 0.0 K/mm3 (0.0-0.4) 08/15/21 20:18 Baso # (Auto) 0.0 K/mm3 (0.0-0.1) 08/15/21 20:18 Add Manual Diff Complete 08/15/21 15:59 Total Counted 100 08/15/21 15:59 Seg Neutrophils % 61.8 % (40.0-70.0) 08/15/21 20:18 Seg Neuts % (Manual) 62.0 % (40.0-70.0) 08/15/21 15:59 Band Neutrophils % 3.0 % 08/15/21 15:59 Lymphocytes % (Manual) 23.0 % (13.4-35.0) 08/15/21 15:59 Reactive Lymphs % (Man) 0 % 08/15/21 15:59 Monocytes % (Manual) 10.0 % (0.0-7.3) H 08/15/21 15:59 Eosinophils % (Manual) 2.0 % (0.0-4.3) 08/15/21 15:59 Basophils % (Manual) 0 % (0.0-1.8) 08/15/21 15:59 Metamyelocytes % 0 % 08/15/21 15:59 Myelocytes % 0 % 08/15/21 15:59 Promyelocytes % 0 % 08/15/21 15:59 Blast Cells % 0 % 08/15/21 15:59 Nucleated RBC % Not Reportable 08/15/21 15:59 Seg Neutrophils # 2.3 K/mm3 (1.8-7.7) 08/15/21 20:18 Seg Neutrophils # Man 3.2 K/mm3 (1.8-7.7) 08/15/21 15:59 Band Neutrophils # 0.2 K/mm3 08/15/21 15:59 Lymphocytes # (Manual) 1.2 K/mm3 (1.2-5.4) 08/15/21 15:59 Abs React Lymphs (Man) 0.0 K/mm3 08/15/21 15:59 Monocytes # (Manual) 0.5 K/mm3 (0.0-0.8) 08/15/21 15:59 Eosinophils # (Manual) 0.1 K/mm3 (0.0-0.4) 08/15/21 15:59 Basophils # (Manual) 0.0 K/mm3 (0.0-0.1) 08/15/21 15:59 Metamyelocytes # 0.0 K/mm3 08/15/21 15:59 Myelocytes # 0.0 K/mm3 08/15/21 15:59 Promyelocytes # 0.0 K/mm3 08/15/21 15:59 Blast Cells # 0.0 K/mm3 08/15/21 15:59 WBC Morphology Not Reportable 08/15/21 15:59 Hypersegmented Neuts Not Reportable 08/15/21 15:59 Hyposegmented Neuts Not Reportable 08/15/21 15:59 Hypogranular Neuts Not Reportable 08/15/21 15:59 Smudge Cells Not Reportable 08/15/21 15:59 Toxic Granulation Not Reportable 08/15/21 15:59 Toxic Vacuolation Not Reportable 08/15/21 15:59 Dohle Bodies Not Reportable 08/15/21 15:59 Pelger-Huet Anomaly Not Reportable 08/15/21 15:59 Leila Rods Not Reportable 08/15/21 15:59 Platelet Estimate Consistent w auto 08/15/21 15:59 Clumped Platelets Not Reportable 08/15/21 15:59 Plt Clumps, EDTA Not Reportable 08/15/21 15:59 Large Platelets Not Reportable 08/15/21 15:59 Giant Platelets Not Reportable 08/15/21 15:59 Platelet Satelliting Not Reportable 08/15/21 15:59 Plt Morphology Comment Not Reportable 08/15/21 15:59 RBC Morphology Not Reportable 08/15/21 15:59 Dimorphic RBCs Not Reportable 08/15/21 15:59 Polychromasia Not Reportable 08/15/21 15:59 Hypochromasia Not Reportable 08/15/21 15:59 Poikilocytosis Few 08/15/21 15:59 Anisocytosis Few 08/15/21 15:59 Microcytosis Not Reportable 08/15/21 15:59 Macrocytosis Not Reportable 08/15/21 15:59 Spherocytes Not Reportable 08/15/21 15:59 Pappenheimer Bodies Not Reportable 08/15/21 15:59 Sickle Cells Not Reportable 08/15/21 15:59 Target Cells Not Reportable 08/15/21 15:59 Tear Drop Cells Not Reportable 08/15/21 15:59 Ovalocytes Few 08/15/21 15:59 Helmet Cells Not Reportable 08/15/21 15:59 [place] Bodies Not Reportable 08/15/21 15:59 [place] Rings Not Reportable 08/15/21 15:59 [place] Cells Few 08/15/21 15:59 Bite Cells Not Reportable 08/15/21 15:59 Crenated Cell Not Reportable 08/15/21 15:59 Elliptocytes Not Reportable 08/15/21 15:59 Acanthocytes (Spur) Not Reportable 08/15/21 15:59 Rouleaux Not Reportable 08/15/21 15:59 Hemoglobin C Crystals Not Reportable 08/15/21 15:59 Schistocytes Not Reportable 08/15/21 15:59 Malaria parasites Not Reportable 08/15/21 15:59 [place] Bodies Not Reportable 08/15/21 15:59 Hem Pathologist Commnt No 08/15/21 15:59 Sodium 135 mmol/L (137-145) L 08/15/21 20:18 Potassium 3.4 mmol/L (3.6-5.0) L 08/15/21 20:18 Chloride 99.2 mmol/L (98-107) 08/15/21 20:18 Carbon Dioxide 19 mmol/L (22-30) L 08/15/21 20:18 Anion Gap 20 mmol/L 08/15/21 20:18 BUN 77 mg/dL (7-17) H 08/15/21 20:18 Creatinine 7.9 mg/dL (0.6-1.2) H 08/15/21 20:18 Estimated GFR 6 ml/min 08/15/21 20:18 BUN/Creatinine Ratio 10 % 08/15/21 20:18 Glucose 188 mg/dL (65-100) H 08/15/21 20:18 Calcium 8.1 mg/dL (8.4-10.2) L 08/15/21 20:18 Total Bilirubin 0.30 mg/dL (0.1-1.2) 08/15/21 20:18 AST 26 units/L (5-40) 08/15/21 20:18 ALT 51 units/L (7-56) 08/15/21 20:18 Alkaline Phosphatase 67 units/L (35-129) 08/15/21 20:18 Troponin T 0.098 ng/mL (0.00-0.029) H 08/16/21 04:14 Total Protein 6.5 g/dL (6.3-8.2) 08/15/21 20:18 Albumin 3.7 g/dL (3.9-5) L 08/15/21 20:18 Albumin/Globulin Ratio 1.3 % 08/15/21 20:18 Triglycerides 192 mg/dL (2-149) H 08/15/21 15:59 Cholesterol 245 mg/dL (50-199) H 08/15/21 15:59 LDL Cholesterol Direct 144 mg/dL (50-130) H 08/15/21 15:59 HDL Cholesterol 58 mg/dL (40-59) 08/15/21 15:59 Cholesterol/HDL Ratio 4.22 % 08/15/21 15:59 [place]/IV: Voiding Method Toilet Active Medications - Current Medications Current Medications: Generic Name Dose Route Start Last Admin Trade Name Freq PRN Reason Stop Dose Admin Acetaminophen 650 mg 08/15/21 19:52 Acetaminophen 325 Mg Tab PO Q4H PRN Pain MILD(1-3)/Fever >100.5/ALVAREZ Amlodipine Besylate 10 mg 08/15/21 21:00 08/15/21 23:20 Amlodipine 10 Mg Tab PO Not Given DAILY [facility] Aspirin 81 mg 08/15/21 21:00 08/15/21 23:09 Aspirin 81 Mg Tab Chew PO Not Given QDAY [facility] Clopidogrel Bisulfate 75 mg 08/15/21 20:00 08/15/21 23:08 Clopidogrel 75 Mg Tab PO Not Given QDAY [facility] Heparin Sodium (Porcine) 5,000 unit 08/15/21 22:00 08/15/21 23:13 Heparin 5,000 Unit/1 Ml Vial SUB-Q 5,000 unit Q12HR WILLIE Administration Hydralazine HCl 50 mg 08/15/21 22:00 08/15/21 22:36 Hydralazine 25 Mg Tab PO 50 mg BID WILLIE Administration Hydrochlorothiazide 25 mg 08/15/21 20:00 08/15/21 23:20 Hydrochlorothiazide 25 Mg Tab PO Not Given QDAY [facility] Sodium Chloride 1,000 mls @ 75 mls/hr 08/15/21 20:00 08/15/21 23:08 Nacl 0.9% 1000 Ml IV 08/16/21 10:00 75 mls/hr DIRECT WILLIE Administration Metoclopramide HCl 10 mg 08/15/21 19:53 Metoclopramide 10 Mg/2 Ml Inj IV Q6H PRN Nausea And Vomiting Morphine Sulfate 2 mg 08/15/21 19:53 Morphine 2 Mg/1 Ml Inj IV Q4H PRN Pain, Moderate (4-6) Ondansetron HCl 4 mg 08/15/21 19:52 Ondansetron 4 Mg/2 Ml Inj IV Q8H PRN Nausea And Vomiting Oxycodone/Acetaminophen 1 tab 08/15/21 19:53 Oxycodone /Acetaminophen 5-325mg Tab PO Q6H PRN Pain, Moderate (4-6) Pantoprazole Sodium 40 mg 08/15/21 20:00 08/15/21 22:36 Pantoprazole 40 Mg Tab PO 40 mg QDAY WILLIE Administration Sodium Chloride 10 ml 08/15/21 22:00 08/15/21 23:13 Sodium Chloride 0.9% 10 Ml Flush Syringe IV 10 ml BID WILLIE Administration Sodium Chloride 10 ml 08/15/21 19:52 Sodium Chloride 0.9% 10 Ml Flush Syringe IV PRN PRN LINE FLUSH Valsartan 160 mg 08/15/21 21:00 08/15/21 23:19 Valsartan 160mg Tab PO 160 mg Q12H WILLIE Administration
--- NOTE | 2021-08-16 09:18 | Consultation ---
History of Present Illness - Reason for Consult Consult date: 08/16/21 end stage renal disease - History of Present Illness This is a 66 year old woman with CKD 5 not yet started on dialysis who presents with near syncope. Patient was just seen on 08/14/21 by myself for CKD 5 visit. Does have AVF ready for HD when needed. At visit, patient denied uremic symptoms but noted cold symptoms including cough and congestion. Blood pressure was high so nifedipine increased to 60mg from 30mg. Yesterday, she was out at a store and felt hot, diaphoretic, and nauseous. Willis lightheaded and states that she almost passed out, but did not lose consciousness. EMS noted that patient was bradycardic and hypotensive, in ED, received some fluids and improved Currently, she feels fairly well other than ongoing cold congestion. She denies any dyspnea, edema, uremic symptoms - Past Medical History Hx Hypertension: Yes Hx Diabetes: Yes Hx Renal Disease: Yes (CKD V) Hx Tuberculosis: Yes (POSITIVE IN THE PAST. NO MEDS. TAKES CXR ONCE A YEAR.) Additional medical history: Broken right leg. Chronic renal insufficiency. Hypertension - Surgical History Past Surgical History?: Yes Additional Surgical History: x1. Dialysis fistula in the left upper arm. - Family History Family history: no significant - Social History Smoking Status: Never Smoker Substance Use Type: None Medications and Allergies Allergies Allergy/AdvReac Type Severity Reaction Status Date / Time No Known Allergies Allergy Verified 08/15/21 15:41 Home Medications Medication Instructions Recorded Confirmed Last Taken Type Aspirin [Aspirin BABY CHEW TAB] 81 mg PO QDAY 11/01/20 11/13/20 11/13/20 05:00 History Clopidogrel [Plavix] 75 mg PO QDAY 11/01/20 11/13/20 11/13/20 05:00 History Pantoprazole [Protonix TAB] 40 mg PO QDAY 11/01/20 11/13/20 11/13/20 05:00 History amLODIPine 10 mg PO DAILY 11/01/20 11/13/20 11/13/20 05:00 History carvediloL [Coreg] 25 mg PO BID 11/01/20 11/13/20 11/13/20 05:00 History cloNIDine [Catapres] 0.1 mg PO QHS 11/01/20 11/13/20 11/12/20 09:00 History hydrALAZINE [Apresoline TAB] 50 mg PO BID 11/01/20 11/13/20 11/13/20 05:00 History hydroCHLOROthiazide [HCTZ] 25 mg PO QDAY 11/01/20 11/13/20 11/12/20 09:00 History HYDROcodone/APAP 5-325 [[place] 1 each PO Q4HR PRN #40 tablet 11/13/20 Unknown Rx 5/325] Active Meds: Active Medications Acetaminophen (Acetaminophen 325 Mg Tab) 650 mg PO Q4H PRN PRN Reason: Pain MILD(1-3)/Fever >100.5/ALVAREZ Amlodipine Besylate (Amlodipine 10 Mg Tab) 10 mg PO DAILY [facility] [place] Last Admin: 08/15/21 23:20 Dose: Not Given Aspirin (Aspirin 81 Mg Tab Chew) 81 mg PO QDAY [facility] [place] Last Admin: 08/15/21 23:09 Dose: Not Given Clopidogrel Bisulfate (Clopidogrel 75 Mg Tab) 75 mg PO QDAY [facility] [place] Last Admin: 08/15/21 23:08 Dose: Not Given Heparin Sodium (Porcine) (Heparin 5,000 Unit/1 Ml Vial) 5,000 unit SUB-Q Q12HR [facility] [place] Last Admin: 08/15/21 23:13 Dose: 5,000 unit Hydralazine HCl (Hydralazine 25 Mg Tab) 50 mg PO BID [facility] [place] Last Admin: 08/15/21 22:36 Dose: 50 mg Hydralazine HCl (Hydralazine 20 Mg/1 Ml Inj) 20 mg IV Q4HR PRN PRN Reason: Hypertension Hydrochlorothiazide (Hydrochlorothiazide 25 Mg Tab) 25 mg PO QDAY [facility] [place] Last Admin: 08/15/21 23:20 Dose: Not Given Sodium Chloride (Nacl 0.9% 1000 Ml) 1,000 mls @ 75 mls/hr IV DIRECT [facility] [place] Stop: 08/16/21 10:00 Last Admin: 08/15/21 23:08 Dose: 75 mls/hr Metoclopramide HCl (Metoclopramide 10 Mg/2 Ml Inj) 10 mg IV Q6H PRN PRN Reason: Nausea And Vomiting Morphine Sulfate (Morphine 2 Mg/1 Ml Inj) 2 mg IV Q4H PRN PRN Reason: Pain, Moderate (4-6) Ondansetron HCl (Ondansetron 4 Mg/2 Ml Inj) 4 mg IV Q8H PRN PRN Reason: Nausea And Vomiting Oxycodone/Acetaminophen (Oxycodone /Acetaminophen 5-325mg Tab) 1 tab PO Q6H PRN PRN Reason: Pain, Moderate (4-6) Pantoprazole Sodium (Pantoprazole 40 Mg Tab) 40 mg PO QDAY [facility] [place] Last Admin: 08/15/21 22:36 Dose: 40 mg Sodium Chloride (Sodium Chloride 0.9% 10 Ml Flush Syringe) 10 ml IV BID [facility] [place] Last Admin: 08/15/21 23:13 Dose: 10 ml Sodium Chloride (Sodium Chloride 0.9% 10 Ml Flush Syringe) 10 ml IV PRN PRN PRN Reason: LINE FLUSH Valsartan (Valsartan 160mg Tab) 160 mg PO Q12H [facility] [place] Last Admin: 08/15/21 23:19 Dose: 160 mg Review of Systems All systems: negative (as per HPI) Exam - Vital Signs Vital signs: Vital Signs Temp Pulse Resp BP Pulse Ox 97.9 F 80 16 117/50 100 08/15/21 15:40 08/15/21 15:40 08/15/21 15:40 08/15/21 15:40 08/15/21 15:40 - Physical Exam Narrative exam: Constitutional: no acute distress Head: NC/AT Neck: supple Lungs: clear to auscultation CV: RRR, no M/R/G Abdomen: soft, non-tender, bowel sounds present Back: nontender Extremities: no edema, pulses WNL. AVF with good thrill, bruit Skin: intact Neuro: no focal deficits, alert and oriented x4 Results - Lab Results 08/15/21 20:18 08/15/21 20:18 Most recent lab results Calcium 8.1 mg/dL (8.4-10.2) L 08/15/21 20:18 Assessment and Plan This is a 66 year old woman who presents with syncope # CKD 5: not on HD. Creatinine is higher than prior (has been trending up outpatient to 6.1 on last visit), 8.0->7.0 now, likely with cardiac related kidney injury. CKD likely due to DM, HTN. Has notable proteinuria - daily labs - renally dose meds - avoid nephrotoxins - renal diet - no immediate need to start HD as she denies uremic symptoms, electrolytes/volume stable. Has AVF ready when needed # Anemia: last hemoglobin 8.0, ESAs outpatient # HTN: BP low initially. Agree with holding carvedilol for now given bradycardi a, use amlodipine and hydralazine for now. Of note, patient has not # Secondary Hyperparathyroidism: continue home binders as needed, vitamin D analogs prn # Syncope: appreciate cardiology input, workup pending
[2021-08-16] MEDS: CLOPIDOGREL 75 MG TAB PO SCH (09:43)
[2021-08-16] MEDS: ASPIRIN 81 MG TAB CHEW PO SCH (09:43)
[2021-08-16] MEDS: PANTOPRAZOLE 40 MG TAB PO SCH (09:43)
[2021-08-16] MEDS: amLODIPine 10 MG TAB PO SCH (09:43)
[2021-08-16] MEDS: hydrALAZINE 25 MG TAB PO SCH ×2 (09:43→19:55)
[2021-08-16] MEDS: HEPARIN 5,000 UNIT/1 ML VIAL SUB-Q SCH ×2 (09:45→21:49)
[2021-08-16] MEDS: hydroCHLOROthiazide 25 MG TAB PO SCH (09:45)
[2021-08-16] MEDS: VALSARTAN 160MG TAB PO SCH (09:45)
--- NOTE | 2021-08-16 13:47 | Consultation ---
<MARBIN GRIMES - Last Filed: 08/16/21 16:54> History of Present Illness Consult date: 08/16/21 Requesting physician: MARYANNE DON Consult reason: bradycardia, syncope History of present illness: Patient is a 66-year-old female with a history of CKDV and HTN who presented with complaints syncope. She had an AV fistula placed in October 2020 but has not yet started dialysis. Patient states she has been "battling a cold" since last Wednesday. She reports fevers/chills at home, as well as a sore throat and stuffy nose. She states she had a COVID test done as an outpatient on Wednesday, which was negative. Patient reports she was feeling better yesterday, so she decided to go shopping with a friend. While walking inside a store, she suddenly felt hot, diaphoretic, and nauseous. She then began to feel lightheaded and states her friend helped her sit down. She states "I was semi-conscious." She reports she was barely able to walk back out of the store due to weakness, but her symptoms improved throughout the day. Patient claims this has happened before and usually occurs when she is dealing with another illness, particularly an infection. Also of note, patient reports her BP and HR have been running low at home. She states her PCP recently made some adjustments to her home antihypertensive regimen. She is not currently established with a [employer]. Past History Past Medical History: ESRD, hypertension Past Surgical History: denies: valve replacement, CABG, PTCA Social history: denies: smoking, alcohol abuse Family history: no significant family history Medications and Allergies Allergies Allergy/AdvReac Type Severity Reaction Status Date / Time No Known Allergies Allergy Verified 08/15/21 15:41 Home Medications Medication Instructions Recorded Confirmed Last Taken Type Aspirin [Aspirin BABY CHEW TAB] 81 mg PO QDAY 11/01/20 11/13/20 11/13/20 05:00 History Clopidogrel [Plavix] 75 mg PO QDAY 11/01/20 11/13/20 11/13/20 05:00 History Pantoprazole [Protonix TAB] 40 mg PO QDAY 11/01/20 11/13/20 11/13/20 05:00 History amLODIPine 10 mg PO DAILY 11/01/20 11/13/20 11/13/20 05:00 History carvediloL [Coreg] 25 mg PO BID 11/01/20 11/13/20 11/13/20 05:00 History cloNIDine [Catapres] 0.1 mg PO QHS 11/01/20 11/13/20 11/12/20 09:00 History hydrALAZINE [Apresoline TAB] 50 mg PO BID 11/01/20 11/13/20 11/13/20 05:00 History hydroCHLOROthiazide [HCTZ] 25 mg PO QDAY 11/01/20 11/13/20 11/12/20 09:00 Hi story HYDROcodone/APAP 5-325 [[place] 1 each PO Q4HR PRN #40 tablet 11/13/20 Unknown Rx 5/325] Active Meds: Active Medications Acetaminophen (Acetaminophen 325 Mg Tab) 650 mg PO Q4H PRN PRN Reason: Pain MILD(1-3)/Fever >100.5/ALVAREZ Amlodipine Besylate (Amlodipine 10 Mg Tab) 10 mg PO DAILY [facility] Last Admin: 08/16/21 09:43 Dose: 10 mg Aspirin (Aspirin 81 Mg Tab Chew) 81 mg PO QDAY [facility] Last Admin: 08/16/21 09:43 Dose: 81 mg Clopidogrel Bisulfate (Clopidogrel 75 Mg Tab) 75 mg PO QDAY [facility] Last Admin: 08/16/21 09:43 Dose: 75 mg Heparin Sodium (Porcine) (Heparin 5,000 Unit/1 Ml Vial) 5,000 unit SUB-Q Q12HR [facility] Last Admin: 08/16/21 09:45 Dose: Not Given Hydralazine HCl (Hydralazine 25 Mg Tab) 50 mg PO BID [facility] Last Admin: 08/16/21 09:43 Dose: 50 mg Hydralazine HCl (Hydralazine 20 Mg/1 Ml Inj) 20 mg IV Q4HR PRN PRN Reason: Hypertension Hydrochlorothiazide (Hydrochlorothiazide 25 Mg Tab) 25 mg PO QDAY [facility] Last Admin: 08/16/21 09:45 Dose: Not Given Metoclopramide HCl (Metoclopramide 10 Mg/2 Ml Inj) 10 mg IV Q6H PRN PRN Reason: Nausea And Vomiting Morphine Sulfate (Morphine 2 Mg/1 Ml Inj) 2 mg IV Q4H PRN PRN Reason: Pain, Moderate (4-6) Ondansetron HCl (Ondansetron 4 Mg/2 Ml Inj) 4 mg IV Q8H PRN PRN Reason: Nausea And Vomiting Oxycodone/Acetaminophen (Oxycodone /Acetaminophen 5-325mg Tab) 1 tab PO Q6H PRN PRN Reason: Pain, Moderate (4-6) Pantoprazole Sodium (Pantoprazole 40 Mg Tab) 40 mg PO QDAY [facility] Last Admin: 08/16/21 09:43 Dose: 40 mg Sodium Chloride (Sodium Chloride 0.9% 10 Ml Flush Syringe) 10 ml IV BID [facility] Last Admin: 08/16/21 09:46 Dose: 10 ml Sodium Chloride (Sodium Chloride 0.9% 10 Ml Flush Syringe) 10 ml IV PRN PRN PRN Reason: LINE FLUSH Valsartan (Valsartan 160mg Tab) 160 mg PO Q12H [facility] Last Admin: 08/16/21 09:45 Dose: Not Given Review of Systems Constitutional: fever, chills Ears, nose, mouth and throat: nasal congestion, sore throat Cardiovascular: syncope, lightheadedness, no chest pain, no palpitations, no edema, no shortness of breath Respiratory: congestion, no shortness of breath Gastrointestinal: nausea, no vomiting Genitourinary Female: no dysuria Musculoskeletal: no neck stiffness, no neck pain, no myalgias Integumentary: no rash, no wounds Neurological: syncope, no head injury, no paralysis, no parathesias, no seizures , no headaches Endocrine: no polydipsia, no polyuria Hematologic/Lymphatic: no easy bruising, no easy bleeding Allergic/Immunologic: no anaphylaxis Physical Examination Vital Signs Temp Pulse Resp BP Pulse Ox 97.9 F 80 16 117/50 100 08/15/21 15:40 08/15/21 15:40 08/15/21 15:40 08/15/21 15:40 08/15/21 15:40 General appearance: no acute distress HEENT: Positive: EOMI, Normocephaly Neck: Positive: neck supple, trachea midline. Negative: JVD/HJR Cardiac: Positive: Reg Rate and Rhythm, S1/S2 Lungs: Positive: clear to auscultation Neuro: Positive: Grossly Intact Abdomen: Positive: Soft. Negative: Tender Skin: Negative: Rash Musculoskeletal: No Pain Extremities: Present: lower extr. pulses. Absent: edema Results 08/15/21 20:18 04/22/22 20:18 Cardiac Enzymes 08/15/21 08/15/21 Range/Units 15:59 20:18 AST 30 26 (5-40) units/L Lipids 08/15/21 Range/Units 15:59 Triglycerides 192 H (2-149) mg/dL Cholesterol 245 H (50-199) mg/dL HDL Cholesterol 58 (40-59) mg/dL Cholesterol/HDL Ratio 4.22 % CBC 08/15/21 08/15/21 Range/Units 15:59 20:18 WBC 5.1 3.8 L (4.5-11.0) K/mm3 RBC 2.92 L 2.64 L (3.65-5.03) M/mm3 Hgb 8.8 L 8.0 L (10.1-14.3) gm/dl Hct 26.4 L 23.5 L (30.3-42.9) % Plt Count 155 136 L (140-440) K/mm3 Lymph # (Auto) Core Measures Abstractor 0.8 L Whiteside # (Auto) Core Measures Abstractor 0.6 Eos # (Auto) Core Measures Abstractor 0.0 Baso # (Auto) Core Measures Abstractor 0.0 Comprehensive Metabolic Panel 08/15/21 08/15/21 Range/Units 15:59 20:18 Sodium 135 L 135 L (137-145) mmol/L Potassium 3.6 3.4 L (3.6-5.0) mmol/L Chloride 95.9 L 99.2 (98-107) mmol/L Carbon Dioxide 17 L 19 L (22-30) mmol/L BUN 79 H 77 H (7-17) mg/dL Creatinine 8.2 H 7.9 H (0.6-1.2) mg/dL Glucose 246 H 188 H (65-100) mg/dL Calcium 8.5 8.1 L (8.4-10.2) mg/dL AST 30 26 (5-40) units/L ALT 54 51 (7-56) units/L Alkaline Phosphatase 79 67 (35-129) units/L Total Protein 7.4 6.5 (6.3-8.2) g/dL Albumin 4.1 3.7 L (3.9-5) g/dL - Imaging and Cardiology Echo: pending EKG: report reviewed, image reviewed - EKG Interpretation EKG: no acute changes EKG interpretations - Telemetry EKG Rhythm: Sinus Rhythm - EKG Sinus rhythms and dysrhythmias: sinus rhythm (53bpm) Assessment and Plan Syncope -Likely vasovagal -Echo pending -Check orthostatic VS Sinus Bradycardia -ECG at admission revealed sinus bradycardia with a rate of 53 bpm -On Coreg 25mg BID as an outpatient (held on arrival) -In SR 60s with occasional PACs on telemetry today -Continue tele monitoring -PRN correction of electrolytes -TSH pending Hypertensive Urgency -Avoid nephrotoxic agents -Continue Amlodipine 10mg daily -Increase Hydralazine to 100mg TID with hold parameters -Resume low-dose Coreg (with hold parameters) and titrate up as tolerated Elevated Tn -CE elevation likely represents Type 2 W[place] in the setting of accelerated HTN and bradyarrhythmia -Tn trending down -No acute ischemic changes on ECG -Plan for Lexiscan stress MPI on Wednesday CKDV -Nephro following -S/p AV graft 11/13/2020 -Has not yet started dialysis Anemia -Monitor H/H Patient seen in conjunction with Dr. Garcia, who agrees with the assessment and plan of care. - Patient Problems (1) Syncope Current Visit: Yes Status: Acute Qualifiers: Qualified Code(s): R55 - Syncope and collapse (2) Sinus bradycardia Current Visit: Yes Status: Acute (3) Type 2 myocardial infarction Current Visit: Yes Status: Acute <SILKE GARCIA M - Last Filed: 08/17/21 11:37> Medications and Allergies Active Meds: Active Medications Acetaminophen (Acetaminophen 325 Mg Tab) 650 mg PO Q4H PRN PRN Reason: Pain MILD(1-3)/Fever >100.5/ALVAREZ Amlodipine Besylate (Amlodipine 10 Mg Tab) 10 mg PO DAILY [facility] Last Admin: 08/17/21 09:19 Dose: 10 mg Aspirin (Aspirin 81 Mg Tab Chew) 81 mg PO QDAY [facility] Last Admin: 08/17/21 09:17 Dose: 81 mg Benzonatate (Benzonatate 100 Mg Cap) 100 mg PO Q8HR PRN PRN Reason: cough Last Admin: 08/17/21 09:17 Dose: 100 mg Calcitriol (Calcitriol 0.5 Mcg Cap) 0.5 mcg PO QDAY [facility] Last Admin: 08/17/21 09:24 Dose: 0.5 mcg Carvedilol (Carvedilol 6.25 Mg Tab) 6.25 mg PO BID [facility] Last Admin: 08/17/21 09:17 Dose: 6.25 mg Clopidogrel Bisulfate (Clopidogrel 75 Mg Tab) 75 mg PO QDAY [facility] Last Admin: 08/17/21 09:19 Dose: 75 mg Heparin Sodium (Porcine) (Heparin 5,000 Unit/1 Ml Vial) 5,000 unit SUB-Q Q12HR [facility] Last Admin: 08/17/21 09:19 Dose: Not Given Hydralazine HCl (Hydralazine 20 Mg/1 Ml Inj) 20 mg IV Q4HR PRN PRN Reason: Hypertension Last Admin: 08/17/21 04:34 Dose: 20 mg Hydralazine HCl (Hydralazine 25 Mg Tab) 100 mg PO TID [facility] Last Admin: 08/17/21 09:18 Dose: 100 mg Metoclopramide HCl (Metoclopramide 10 Mg/2 Ml Inj) 10 mg IV Q6H PRN PRN Reason: Nausea And Vomiting Minoxidil (Minoxidil 2.5 Mg Tab) 5 mg PO QDAY [facility] Morphine Sulfate (Morphine 2 Mg/1 Ml Inj) 2 mg IV Q4H PRN PRN Reason: Pain, Moderate (4-6) Ondansetron HCl (Ondansetron 4 Mg/2 Ml Inj) 4 mg IV Q8H PRN PRN Reason: Nausea And Vomiting Oxycodone/Acetaminophen (Oxycodone /Acetaminophen 5-325mg Tab) 1 tab PO Q6H PRN PRN Reason: Pain, Moderate (4-6) Pantoprazole Sodium (Pantoprazole 40 Mg Tab) 40 mg PO QDAY [facility] Last Admin: 08/17/21 09:19 Dose: 40 mg Sodium Chloride (Sodium Chloride 0.9% 10 Ml Flush Syringe) 10 ml IV BID [facility] Last Admin: 08/17/21 09:20 Dose: 10 ml Sodium Chloride (Sodium Chloride 0.9% 10 Ml Flush Syringe) 10 ml IV PRN PRN PRN Reason: LINE FLUSH Physical Examination Vital Signs Temp Pulse Resp BP Pulse Ox 97.9 F 80 16 117/50 100 08/15/21 15:40 08/15/21 15:40 08/15/21 15:40 08/15/21 15:40 08/15/21 15:40 Results 08/17/21 04:54 08/17/21 04:54 CBC 08/17/21 Range/Units 04:54 WBC 4.9 (4.5-11.0) K/mm3 RBC 2.73 L (3.65-5.03) M/mm3 Hgb 8.1 L (10.1-14.3) gm/dl Hct 24.0 L (30.3-42.9) % Plt Count 164 (140-440) K/mm3 Lymph # (Auto) 1.9 (1.2-5.4) K/mm3 [place] # (Auto) 0.6 (0.0-0.8) K/mm3 Eos # (Auto) 0.2 (0.0-0.4) K/mm3 Baso # (Auto) 0.0 (0.0-0.1) K/mm3 Comprehensive Metabolic Panel 08/17/21 Range/Units 04:54 Sodium 137 (137-145) mmol/L Potassium 3.2 L (3.6-5.0) mmol/L Chloride 101.5 (98-107) mmol/L Carbon Dioxide 18 L (22-30) mmol/L BUN 77 H (7-17) mg/dL Creatinine 7.7 H (0.6-1.2) mg/dL Glucose 96 (65-100) mg/dL Calcium 7.9 L (8.4-10.2) mg/dL Assessment and Plan Patient seen and examined with nurse practitioner. Agree with assessment and plan
[2021-08-16] MEDS: hydrALAZINE 20 MG/1 ML INJ IV PRN (16:02)
[2021-08-16] MEDS: carvediloL 6.25 MG TAB PO SCH ×2 (18:04→21:48)
[2021-08-16] MEDS: BENZONATATE 100 MG CAP PO PRN (19:54)
[2021-08-17] MEDS: hydrALAZINE 20 MG/1 ML INJ IV PRN (04:34)
[2021-08-17 05:29] LABS: Basophils % (Auto) 0.6 % (0.0-1.8); Eosinophils # (Auto) 0.2 K/mm3 (0.0-0.4); Eosinophils % (Auto) 4.5 % (0.0-4.3); Hemoglobin 8.1 gm/dl (10.1-14.3); Lymphocytes # (Auto) 1.9 K/mm3 (1.2-5.4); Lymphocytes % (Auto) 39.1 % (13.4-35.0); Mean Corpuscular HGB Conc 34 % (30-34); Mean Corpuscular Volume 88 fl (79-97); Monocytes # (Auto) 0.6 K/mm3 (0.0-0.8); Monocytes % (Auto) 12.1 % (0.0-7.3); Platelet Count 164 K/mm3 (140-440); Red Blood Count 2.73 M/mm3 (3.65-5.03)
[2021-08-17 05:51] LABS: Calcium 7.9 mg/dL (8.4-10.2)
[2021-08-17] MEDS: BENZONATATE 100 MG CAP PO PRN ×2 (08:21→09:17)
--- NOTE | 2021-08-17 08:41 | Progress Note ---
Assessment and Plan This is a 66 year old woman who presents with syncope # CKD 5: not on HD. Creatinine is higher than prior (has been trending up outpatient to 6.1 on last visit), 8.2->7.9->7.7 now, likely with cardiac related kidney injury. CKD likely due to DM, HTN. Has notable proteinuria - daily labs - renally dose meds - avoid nephrotoxins - renal diet - no immediate need to start HD as she denies uremic symptoms, electrolytes/volume stable. Has AVF ready when needed - has outpatient CKD 5 follow up 08/26/2021 with myself, will keep that appoi ntment for now # Hypokalemia: ok to replete prn while inpatient # Anemia: last hemoglobin 8.1, ESAs outpatient # HTN: BP low initially, now high. BP previously controlled on amlodipine 10mg and carvedilol 25mg (per outpatient CKD visits), but will defer carvedilol dosing to cardiology given bradycardia, agree with hydralazine TID # Secondary Hyperparathyroidism: continue home binders as needed, vitamin D analogs prn (placed order for calcitriol) # Syncope: appreciate cardiology input, workup pending Subjective Date of service: 08/17/21 Interval history: Feeling well this AM, no major syncope. Denies dyspnea, edema, uremic symptoms Objective - Exam Narrative Exam: Constitutional: no acute distress Head: NC/AT Neck: supple Lungs: clear to auscultation CV: RRR, no M/R/G Abdomen: soft, non-tender, bowel sounds present Back: nontender Extremities: no edema, pulses WNL. AVF with good thrill, bruit Skin: intact Neuro: no focal deficits, alert and oriented x4 - Vital Signs Vital signs: Vital Signs - 12hr 08/16/21 08/16/21 08/16/21 20:39 20:42 21:48 Temperature Pulse Rate 68 70 Respiratory Rate Blood Pressure 176/61 O2 Sat by Pulse 98 Oximetry 08/17/21 08/17/21 08/17/21 00:10 03:52 04:34 Temperature 99.1 F 99.1 F Pulse Rate 71 63 63 Respiratory 14 Rate Blood Pressure 180/66 183/70 187/73 O2 Sat by Pulse 97 97 Oximetry 08/17/21 08/17/21 06:00 07:36 Temperature 98.7 F Pulse Rate 63 66 Respiratory 18 Rate Blood Pressure 186/62 O2 Sat by Pulse 98 Oximetry - Lab 08/17/21 04:54 08/17/21 04:54 Most recent lab results Calcium 7.9 mg/dL (8.4-10.2) L 08/17/21 04:54 Medications & Allergies - Medications Allergies/Adverse Reactions: Allergies No Known Allergies Allergy (Verified 08/15/21 15:41) Home Medications: Home Medications Medication Instructions Recorded Confirmed Last Taken Type Aspirin [Aspirin BABY CHEW TAB] 81 mg PO QDAY 11/01/20 11/13/20 11/13/20 05:00 History Clopidogrel [Plavix] 75 mg PO QDAY 11/01/20 11/13/20 11/13/20 05:00 History Pantoprazole [Protonix TAB] 40 mg PO QDAY 11/01/20 11/13/20 11/13/20 05:00 History amLODIPine 10 mg PO DAILY 11/01/20 11/13/20 11/13/20 05:00 History carvediloL [Coreg] 25 mg PO BID 11/01/20 11/13/20 11/13/20 05:00 History cloNIDine [Catapres] 0.1 mg PO QHS 11/01/20 11/13/20 11/12/20 09:00 History hydrALAZINE [Apresoline TAB] 50 mg PO BID 11/01/20 11/13/20 11/13/20 05:00 History hydroCHLOROthiazide [HCTZ] 25 mg PO QDAY 11/01/20 11/13/20 11/12/20 09:00 History HYDROcodone/APAP 5-325 [[place] 1 each PO Q4HR PRN #40 tablet 11/13/20 Unknown Rx 5/325] Active Medications: Generic Name Dose Route Start Last Admin Trade Name Freq PRN Reason Stop Dose Admin Acetaminophen 650 mg 08/15/21 19:52 Acetaminophen 325 Mg Tab PO Q4H PRN Pain MILD(1-3)/Fever >100.5/ALVAREZ Amlodipine Besylate 10 mg 08/15/21 21:00 08/16/21 09:43 Amlodipine 10 Mg Tab PO 10 mg DAILY WILLIE Administration Aspirin 81 mg 08/15/21 21:00 08/16/21 09:43 Aspirin 81 Mg Tab Chew PO 81 mg QDAY WILLIE Administration Benzonatate 100 mg 04/23/22 16:32 08/17/21 08:21 Benzonatate 100 Mg Cap PO 100 mg Q8HR PRN Administration cough Calcitriol 0.5 mcg 08/17/21 10:00 Calcitriol 0.5 Mcg Cap PO QDAY WILLIE Carvedilol 6.25 mg 08/16/21 18:00 08/16/21 21:48 Carvedilol 6.25 Mg Tab PO 6.25 mg BID WILLIE Administration Clopidogrel Bisulfate 75 mg 08/15/21 20:00 08/16/21 09:43 Clopidogrel 75 Mg Tab PO 75 mg QDAY WILLIE Administration Heparin Sodium (Porcine) 5,000 unit 08/15/21 22:00 08/16/21 21:49 Heparin 5,000 Unit/1 Ml Vial SUB-Q 5,000 unit Q12HR WILLIE Administration Hydralazine HCl 20 mg 08/16/21 07:31 08/17/21 04:34 Hydralazine 20 Mg/1 Ml Inj IV 20 mg Q4HR PRN Administration Hypertension Hydralazine HCl 100 mg 08/16/21 20:00 08/16/21 19:55 Hydralazine 25 Mg Tab PO 100 mg TID WILLIE Administration Metoclopramide HCl 10 mg 08/15/21 19:53 Metoclopramide 10 Mg/2 Ml Inj IV Q6H PRN Nausea And Vomiting Morphine Sulfate 2 mg 08/15/21 19:53 Morphine 2 Mg/1 Ml Inj IV Q4H PRN Pain, Moderate (4-6) Ondansetron HCl 4 mg 08/15/21 19:52 Ondansetron 4 Mg/2 Ml Inj IV Q8H PRN Nausea And Vomiting Oxycodone/Acetaminophen 1 tab 08/15/21 19:53 Oxycodone /Acetaminophen 5-325mg Tab PO Q6H PRN Pain, Moderate (4-6) Pantoprazole Sodium 40 mg 08/15/21 20:00 08/16/21 09:43 Pantoprazole 40 Mg Tab PO 40 mg QDAY WILLIE Administration Sodium Chloride 10 ml 08/15/21 22:00 08/16/21 21:49 Sodium Chloride 0.9% 10 Ml Flush Syringe IV 10 ml BID WILLIE Administration Sodium Chloride 10 ml 08/15/21 19:52 Sodium Chloride 0.9% 10 Ml Flush Syringe IV PRN PRN LINE FLUSH
[2021-08-17] MEDS: ASPIRIN 81 MG TAB CHEW PO SCH (09:17)
[2021-08-17] MEDS: carvediloL 6.25 MG TAB PO SCH ×2 (09:17→20:59)
[2021-08-17] MEDS: hydrALAZINE 25 MG TAB PO SCH ×3 (09:18→21:00)
[2021-08-17] MEDS: amLODIPine 10 MG TAB PO SCH (09:19)
[2021-08-17] MEDS: PANTOPRAZOLE 40 MG TAB PO SCH (09:19)
[2021-08-17] MEDS: HEPARIN 5,000 UNIT/1 ML VIAL SUB-Q SCH ×2 (09:19→20:59)
[2021-08-17] MEDS: CLOPIDOGREL 75 MG TAB PO SCH (09:19)
[2021-08-17] MEDS: CALCITRIOL 0.5 MCG CAP PO SCH (09:24)
--- NOTE | 2021-08-17 10:38 | Electrocardiograph Report ---
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
--- NOTE | 2021-08-17 11:43 | Progress Note ---
Assessment and Plan Echocardiogram 08/15: Normal LV systolic function, EF 50 to 55%, mild left ventricular hypertrophy, severe LAE Syncope/vasovagal Sinus bradycardia Anemia Elevated cardiac troponins/Type II CKD/AV fistula 11/13 Hypertension Continue to monitor on telemetry Elevated blood pressure continue to titrate carvedilol 12.5 BID Recommend ischemic evaluation may be completed as an outpatient Subjective Date of service: 08/17/21 Principal diagnosis: Syncope Interval history: Patient sitting up in bed without any complaints Objective Vital Signs Temp Pulse Pulse Resp BP BP Pulse Ox 08/17/21 07:36 98.7 F 66 18 186/62 98 08/17/21 06:00 63 08/17/21 04:34 63 187/73 08/17/21 03:52 99.1 F 63 183/70 97 08/17/21 00:10 99.1 F 71 14 180/66 97 08/16/21 21:48 70 176/61 08/16/21 20:42 98 08/16/21 20:39 68 08/16/21 19:55 70 176/61 08/16/21 19:54 99.6 F 70 16 176/61 97 08/16/21 17:59 75 167/75 08/16/21 15:59 75 75 167/60 08/16/21 15:57 98.8 F 65 18 188/67 97 08/16/21 12:00 100 08/16/21 11:52 98.9 F 64 18 202/74 97 - Physical Examination General: Appears Well HEENT: Positive: EOMI, Normocephaly Neck: Positive: neck supple, trachea midline. Negative: JVD/HJR Cardiac: Positive: Reg Rate and Rhythm Lungs: Positive: clear to auscultation, Normal Breath Sounds Neuro: Positive: Grossly Intact Abdomen: Positive: Soft. Negative: Tender Skin: Negative: Rash Musculoskeletal: No Pain Extremities: Present: lower extr. pulses. Absent: edema - Labs and Meds CBC 08/17/21 Range/Units 04:54 WBC 4.9 (4.5-11.0) K/mm3 RBC 2.73 L (3.65-5.03) M/mm3 Hgb 8.1 L (10.1-14.3) gm/dl Hct 24.0 L (30.3-42.9) % Plt Count 164 (140-440) K/mm3 Lymph # (Auto) 1.9 (1.2-5.4) K/mm3 [place] # (Auto) 0.6 (0.0-0.8) K/mm3 Eos # (Auto) 0.2 (0.0-0.4) K/mm3 Baso # (Auto) 0.0 (0.0-0.1) K/mm3 Comprehensive Metabolic Panel 08/17/21 Range/Units 04:54 Sodium 137 (137-145) mmol/L Potassium 3.2 L (3.6-5.0) mmol/L Chloride 101.5 (98-107) mmol/L Carbon Dioxide 18 L (22-30) mmol/L BUN 77 H (7-17) mg/dL Creatinine 7.7 H (0.6-1.2) mg/dL Glucose 96 (65-100) mg/dL Calcium 7.9 L (8.4-10.2) mg/dL - Imaging and Cardiology EKG: report reviewed, image reviewed Echo: report reviewed - EKG Sinus rhythms and dysrhythmias: sinus rhythm (53bpm)
[2021-08-17] MEDS: MINOXIDIL 2.5 MG TAB PO SCH (12:01)
--- NOTE | 2021-08-17 19:50 | Progress Note ---
Assessment and Plan Assessment and plan: -- Symptomatic bradycardia Current Visit: Yes Status: Acute Heart rate in 60s, Patient's beta-blockers and clonidine held Cardiology following, possible stress test tomorrow Monitor closely and adjust the management as needed --Non-ST elevation [place][probably type II] Current Visit: Yes Status: Acute In the setting of chronic kidney disease However patient has risk factors, cardiology already consulted -- Syncope/autonomic dysfunction Current Visit: Yes Status: Acute Probably due to bradycardia Fall precautions, syncope work-up CT head without contrast no acute abnormality Follow mildly and intermittently clears by mouth support area and he is a young stephanie and he never understands so I told carotid Doppler Follow cardiology evaluation recommendations --Chronic kidney disease; stage V Current Visit: Yes Status: Acute Patient has AV fistula in her arm But never received hemodialysis Renal consult for possible dialysis if needed Avoid nephrotoxins, renal dosing of medications --Malignant hypertension Current Visit: Yes Status: Acute Resume home antihypertensives, as needed hydralazine Closely monitor --Hypokalemia; Current Visit: Yes Status: Acute Management per nephrology Will replenish if patient is not going for dialysis --Full CODE STATUS -- DVT prophylaxis Current Visit: Yes Status: Acute Subcu heparin renal dose --Advance care planning Current Visit: Yes Status: Acute Patient management as needed Plan of care patient patient and nurse Closely monitor the patient and adjust management as needed Plan of care reviewed with patient and her nurse Drafting Clerk recommendations noted and appreciated Possible discharge in 1 to 2 days if stable History Interval history: I have seen and examined the patient at the bedside Patient's chart and medications reviewed Patient's heart rate is in 60s Patient denies any dizziness or chest pain or palpitations Vital signs noted Hospitalist Physical - Constitutional Vitals: Temp Pulse Resp BP Pulse Ox 99.1 F 65 18 164/63 98 08/17/21 15:24 08/17/21 15:24 08/17/21 15:24 08/17/21 15:24 08/17/21 15:24 General appearance: Present: no acute distress, well-nourished - EENT Eyes: Present: PERRL, EOM intact - Neck Neck: Present: supple, normal ROM - Respiratory Respiratory effort: normal Respiratory: bilateral: diminished, negative: rales, rhonchi, wheezing - Cardiovascular Rhythm: regular Heart Sounds: Present: S1 & S2 - Extremities Extremities: no ischemia, No edema - Abdominal General gastrointestinal: soft, non-tender, non-distended, normal bowel sounds - Integumentary Integumentary: Present: clear, warm - Psychiatric Psychiatric: appropriate mood/affect, cooperative - Neurologic Neurologic: CNII-XII intact, moves all extremities HEART Score - HEART Score Age: > 65 Troponin: Troponin T 0.098 ng/mL (0.00-0.029) H 08/16/21 04:14 Troponin: 1-3x normal limit - Critical Actions Critical Actions: 0-3 pts:0.9-1.7%risk of adverse cardiac event.Candidate for discharge Results - Labs CBC & Chem 7: 08/17/21 04:54 08/17/21 04:54 Labs: Laboratory Last Values WBC 4.9 K/mm3 (4.5-11.0) 08/17/21 04:54 RBC 2.73 M/mm3 (3.65-5.03) L 08/17/21 04:54 Hgb 8.1 gm/dl (10.1-14.3) L 08/17/21 04:54 Hct 24.0 % (30.3-42.9) L 08/17/21 04:54 MCV 88 fl (79-97) 08/17/21 04:54 MCH 30 pg (28-32) 08/17/21 04:54 MCHC 34 % (30-34) 08/17/21 04:54 RDW 16.0 % (13.2-15.2) H 08/17/21 04:54 Plt Count 164 K/mm3 (140-440) 08/17/21 04:54 Lymph % (Auto) 39.1 % (13.4-35.0) H 08/17/21 04:54 [place] % (Auto) 12.1 % (0.0-7.3) H 08/17/21 04:54 Eos % (Auto) 4.5 % (0.0-4.3) H 08/17/21 04:54 Baso % (Auto) 0.6 % (0.0-1.8) 08/17/21 04:54 Lymph # (Auto) 1.9 K/mm3 (1.2-5.4) 08/17/21 04:54 [place] # (Auto) 0.6 K/mm3 (0.0-0.8) 08/17/21 04:54 Eos # (Auto) 0.2 K/mm3 (0.0-0.4) 08/17/21 04:54 Baso # (Auto) 0.0 K/mm3 (0.0-0.1) 08/17/21 04:54 Add Manual Diff Complete 08/15/21 15:59 Total Counted 100 08/15/21 15:59 Seg Neutrophils % 43.7 % (40.0-70.0) 08/17/21 04:54 Seg Neuts % (Manual) 62.0 % (40.0-70.0) 08/15/21 15:59 Band Neutrophils % 3.0 % 08/15/21 15:59 Lymphocytes % (Manual) 23.0 % (13.4-35.0) 08/15/21 15:59 Reactive Lymphs % (Man) 0 % 08/15/21 15:59 Monocytes % (Manual) 10.0 % (0.0-7.3) H 08/15/21 15:59 Eosinophils % (Manual) 2.0 % (0.0-4.3) 08/15/21 15:59 Basophils % (Manual) 0 % (0.0-1.8) 08/15/21 15:59 Metamyelocytes % 0 % 08/15/21 15:59 Myelocytes % 0 % 08/15/21 15:59 Promyelocytes % 0 % 08/15/21 15:59 Blast Cells % 0 % 08/15/21 15:59 Nucleated RBC % Not Reportable 08/15/21 15:59 Seg Neutrophils # 2.1 K/mm3 (1.8-7.7) 08/17/21 04:54 Seg Neutrophils # Man 3.2 K/mm3 (1.8-7.7) 08/15/21 15:59 Band Neutrophils # 0.2 K/mm3 08/15/21 15:59 Lymphocytes # (Manual) 1.2 K/mm3 (1.2-5.4) 08/15/21 15:59 Abs React Lymphs (Man) 0.0 K/mm3 08/15/21 15:59 Monocytes # (Manual) 0.5 K/mm3 (0.0-0.8) 08/15/21 15:59 Eosinophils # (Manual) 0.1 K/mm3 (0.0-0.4) 08/15/21 15:59 Basophils # (Manual) 0.0 K/mm3 (0.0-0.1) 08/15/21 15:59 Metamyelocytes # 0.0 K/mm3 08/15/21 15:59 Myelocytes # 0.0 K/mm3 08/15/21 15:59 Promyelocytes # 0.0 K/mm3 08/15/21 15:59 Blast Cells # 0.0 K/mm3 08/15/21 15:59 WBC Morphology Not Reportable 08/15/21 15:59 Hypersegmented Neuts Not Reportable 08/15/21 15:59 Hyposegmented Neuts Not Reportable 08/15/21 15:59 Hypogranular Neuts Not Reportable 08/15/21 15:59 Smudge Cells Not Reportable 08/15/21 15:59 Toxic Granulation Not Reportable 08/15/21 15:59 Toxic Vacuolation Not Reportable 08/15/21 15:59 Dohle Bodies Not Reportable 08/15/21 15:59 Pelger-Huet Anomaly Not Reportable 08/15/21 15:59 Leila Rods Not Reportable 08/15/21 15:59 Platelet Estimate Consistent w auto 08/15/21 15:59 Clumped Platelets Not Reportable 08/15/21 15:59 Plt Clumps, EDTA Not Reportable 08/15/21 15:59 Large Platelets Not Reportable 08/15/21 15:59 Giant Platelets Not Reportable 08/15/21 15:59 Platelet Satelliting Not Reportable 08/15/21 15:59 Plt Morphology Comment Not Reportable 08/15/21 15:59 RBC Morphology Not Reportable 08/15/21 15:59 Dimorphic RBCs Not Reportable 08/15/21 15:59 Polychromasia Not Reportable 08/15/21 15:59 Hypochromasia Not Reportable 08/15/21 15:59 Poikilocytosis Few 08/15/21 15:59 Anisocytosis Few 08/15/21 15:59 Microcytosis Not Reportable 08/15/21 15:59 Macrocytosis Not Reportable 08/15/21 15:59 Spherocytes Not Reportable 08/15/21 15:59 Pappenheimer Bodies Not Reportable 08/15/21 15:59 Sickle Cells Not Reportable 08/15/21 15:59 Target Cells Not Reportable 08/15/21 15:59 Tear Drop Cells Not Reportable 08/15/21 15:59 Ovalocytes Few 08/15/21 15:59 Helmet Cells Not Reportable 08/15/21 15:59 Weber-[place] Bodies Not Reportable 08/15/21 15:59 [place] Rings Not Reportable 08/15/21 15:59 Eli Cells Few 08/15/21 15:59 Bite Cells Not Reportable 08/15/21 15:59 Crenated Cell Not Reportable 08/15/21 15:59 Elliptocytes Not Reportable 08/15/21 15:59 Acanthocytes (Spur) Not Reportable 08/15/21 15:59 Rouleaux Not Reportable 08/15/21 15:59 Hemoglobin C Crystals Not Reportable 08/15/21 15:59 Schistocytes Not Reportable 08/15/21 15:59 Malaria parasites Not Reportable 08/15/21 15:59 [place]ante Bodies Not Reportable 08/15/21 15:59 Hem Pathologist Commnt No 08/15/21 15:59 Sodium 137 mmol/L (137-145) 08/17/21 04:54 Potassium 3.2 mmol/L (3.6-5.0) L 08/17/21 04:54 Chloride 101.5 mmol/L (98-107) 08/17/21 04:54 Carbon Dioxide 18 mmol/L (22-30) L 08/17/21 04:54 Anion Gap 21 mmol/L 08/17/21 04:54 BUN 77 mg/dL (7-17) H 08/17/21 04:54 Creatinine 7.7 mg/dL (0.6-1.2) H 08/17/21 04:54 Estimated GFR 6 ml/min 08/17/21 04:54 BUN/Creatinine Ratio 10 % 08/17/21 04:54 Glucose 96 mg/dL (65-100) 08/17/21 04:54 POC Glucose 81 mg/dL (70-105) 08/16/21 07:32 Calcium 7.9 mg/dL (8.4-10.2) L 08/17/21 04:54 Total Bilirubin 0.30 mg/dL (0.1-1.2) 08/15/21 20:18 AST 26 units/L (5-40) 08/15/21 20:18 ALT 51 units/L (7-56) 08/15/21 20:18 Alkaline Phosphatase 67 units/L (35-129) 08/15/21 20:18 Troponin T 0.098 ng/mL (0.00-0.029) H 08/16/21 04:14 Total Protein 6.5 g/dL (6.3-8.2) 08/15/21 20:18 Albumin 3.7 g/dL (3.9-5) L 08/15/21 20:18 Albumin/Globulin Ratio 1.3 % 08/15/21 20:18 Triglycerides 192 mg/dL (2-149) H 08/15/21 15:59 Cholesterol 245 mg/dL (50-199) H 08/15/21 15:59 LDL Cholesterol Direct 144 mg/dL (50-130) H 08/15/21 15:59 HDL Cholesterol 58 mg/dL (40-59) 08/15/21 15:59 Cholesterol/HDL Ratio 4.22 % 08/15/21 15:59 TSH 0.827 mlU/mL (0.270-4.200) 08/16/21 17:13 Garrett/IV: Voiding Method Toilet Active Medications - Current Medications Current Medications: Generic Name Dose Route Start Last Admin Trade Name Freq PRN Reason Stop Dose Admin Acetaminophen 650 mg 08/15/21 19:52 Acetaminophen 325 Mg Tab PO Q4H PRN Pain MILD(1-3)/Fever >100.5/ALVAREZ Amlodipine Besylate 10 mg 08/15/21 21:00 08/17/21 09:19 Amlodipine 10 Mg Tab PO 10 mg DAILY WILLIE Administration Aspirin 81 mg 08/15/21 21:00 08/17/21 09:17 Aspirin 81 Mg Tab Chew PO 81 mg QDAY WILLIE Administration Benzonatate 100 mg 08/16/21 16:32 08/17/21 09:17 Benzonatate 100 Mg Cap PO 100 mg Q8HR PRN Administration cough Calcitriol 0.5 mcg 08/17/21 10:00 08/17/21 09:24 Calcitriol 0.5 Mcg Cap PO 0.5 mcg QDAY WILLIE Administration Carvedilol 6.25 mg 08/16/21 18:00 08/17/21 09:17 Carvedilol 6.25 Mg Tab PO 6.25 mg BID WILLIE Administration Clopidogrel Bisulfate 75 mg 08/15/21 20:00 08/17/21 09:19 Clopidogrel 75 Mg Tab PO 75 mg QDAY WILLIE Administration Heparin Sodium (Porcine) 5,000 unit 08/15/21 22:00 08/17/21 09:19 Heparin 5,000 Unit/1 Ml Vial SUB-Q Not Given Q12HR WILLIE Hydralazine HCl 20 mg 08/16/21 07:31 08/17/21 04:34 Hydralazine 20 Mg/1 Ml Inj IV 20 mg Q4HR PRN Administration Hypertension Hydralazine HCl 100 mg 08/16/21 20:00 08/17/21 14:09 Hydralazine 25 Mg Tab PO 100 mg TID WILLIE Administration Metoclopramide HCl 10 mg 08/15/21 19:53 Metoclopramide 10 Mg/2 Ml Inj IV Q6H PRN Nausea And Vomiting Minoxidil 5 mg 08/17/21 10:00 08/17/21 12:01 Minoxidil 2.5 Mg Tab PO 5 mg QDAY WILLIE Administration Morphine Sulfate 2 mg 08/15/21 19:53 Morphine 2 Mg/1 Ml Inj IV Q4H PRN Pain, Moderate (4-6) Ondansetron HCl 4 mg 08/15/21 19:52 Ondansetron 4 Mg/2 Ml Inj IV Q8H PRN Nausea And Vomiting Oxycodone/Acetaminophen 1 tab 08/15/21 19:53 Oxycodone /Acetaminophen 5-325mg Tab PO Q6H PRN Pain, Moderate (4-6) Pantoprazole Sodium 40 mg 08/15/21 20:00 08/17/21 09:19 Pantoprazole 40 Mg Tab PO 40 mg QDAY WILLIE Administration Sodium Chloride 10 ml 08/15/21 22:00 08/17/21 09:20 Sodium Chloride 0.9% 10 Ml Flush Syringe IV 10 ml BID WILLIE Administration Sodium Chloride 10 ml 08/15/21 19:52 Sodium Chloride 0.9% 10 Ml Flush Syringe IV PRN PRN LINE FLUSH
[2021-08-18] MEDS ORDERED: REGADENOSON 0.4 MG/5 ML INJ IV ONE (07:59)
[2021-08-18] MEDS ORDERED: hydrALAZINE 20 MG/1 ML INJ IV NR (08:22)
--- NOTE | 2021-08-18 08:25 | Progress Note ---
Assessment and Plan Assessment and plan: -- Abnormal stress test today; cardiology plans to do left heart catheterization request renal clearance. I informed window dresser[texted] Dr. Hutchinson -- Symptomatic bradycardia/ resolved Current Visit: Yes Status: Acute Symptoms resolved, Heart rate in 70s Patient's beta-blockers and clonidine held Patient had stress test today which is abnormal Cardiology planning to do left heart catheterization Need renal clearance --Non-ST elevation [place][probably type II] Current Visit: Yes Status: Acute In the setting of chronic kidney disease Abnormal stress test possible heart cath -- Syncope/autonomic dysfunction Current Visit: Yes Status: Acute Probably due to bradycardia Fall precautions, syncope work-up CT head without contrast no acute abnormality Follow cardiology evaluation recommendations --Chronic kidney disease; stage V Current Visit: Yes Status: Acute Patient has AV fistula in her arm But never received hemodialysis Renal following, medical management --Malignant hypertension Current Visit: Yes Status: Acute Resume home antihypertensives, as needed hydralazine Closely monitor --Hypokalemia; Current Visit: Yes Status: Acute Management per nephrology Will replenish if patient is not going for dialysis --Full CODE STATUS -- DVT prophylaxis Current Visit: Yes Status: Acute Subcu heparin renal dose --Advance care planning Current Visit: Yes Status: Acute Patient management as needed Plan of care patient patient and nurse Closely monitor the patient and adjust management as needed Stress test is abnormal Need nephrology clearance and possible left heart catheterization per cardiology Brief history; 66-year-old chronic kidney disease AV fistula in place Never initiated hemodialysis, admitted with shortness of breath and symptomatic bradycardia Cardiology evaluated, stress test was abnormal, cardiology plan to do heart cath Need renal clearance. Nephrology was informed of renal clearance for heart cath Disposition; follow nephrology and cardiology recommendations, discharge when stable History Interval history: I have seen and examined the patient at the bedside Patient's chart and medications reviewed Patient feels slightly better Cardiology evaluated scheduled for stress test Vital signs noted Hospitalist Physical - Constitutional Vitals: Temp Pulse Resp BP Pulse Ox 98.8 F 69 14 173/60 97 08/18/21 04:10 08/18/21 04:10 08/18/21 04:10 08/18/21 04:10 08/18/21 04:10 General appearance: Present: no acute distress, well-nourished - EENT Eyes: Present: PERRL, EOM intact - Neck Neck: Present: supple, normal ROM - Respiratory Respiratory effort: normal Respiratory: bilateral: diminished, rales, negative: rhonchi, wheezing - Cardiovascular Rhythm: regular Heart Sounds: Present: S1 & S2 - Extremities Extremities: no ischemia, No edema - Abdominal General gastrointestinal: soft, non-tender, non-distended, normal bowel sounds - Integumentary Integumentary: Present: clear, warm - Psychiatric Psychiatric: appropriate mood/affect, cooperative - Neurologic Neurologic: CNII-XII intact, moves all extremities HEART Score - HEART Score Age: > 65 Troponin: Troponin T 0.098 ng/mL (0.00-0.029) H 08/16/21 04:14 Troponin: 1-3x normal limit - Critical Actions Critical Actions: 0-3 pts:0.9-1.7%risk of adverse cardiac event.Candidate for discharge Results - Labs CBC & Chem 7: 08/17/21 04:54 08/18/21 11:33 Labs: Laboratory Last Values WBC 4.9 K/mm3 (4.5-11.0) 08/17/21 04:54 RBC 2.73 M/mm3 (3.65-5.03) L 08/17/21 04:54 Hgb 8.1 gm/dl (10.1-14.3) L 08/17/21 04:54 Hct 24.0 % (30.3-42.9) L 08/17/21 04:54 MCV 88 fl (79-97) 08/17/21 04:54 MCH 30 pg (28-32) 08/17/21 04:54 MCHC 34 % (30-34) 08/17/21 04:54 RDW 16.0 % (13.2-15.2) H 08/17/21 04:54 Plt Count 164 K/mm3 (140-440) 08/17/21 04:54 Lymph % (Auto) 39.1 % (13.4-35.0) H 08/17/21 04:54 [place] % (Auto) 12.1 % (0.0-7.3) H 08/17/21 04:54 Eos % (Auto) 4.5 % (0.0-4.3) H 08/17/21 04:54 Baso % (Auto) 0.6 % (0.0-1.8) 08/17/21 04:54 Lymph # (Auto) 1.9 K/mm3 (1.2-5.4) 08/17/21 04:54 [place] # (Auto) 0.6 K/mm3 (0.0-0.8) 08/17/21 04:54 Eos # (Auto) 0.2 K/mm3 (0.0-0.4) 08/17/21 04:54 Baso # (Auto) 0.0 K/mm3 (0.0-0.1) 08/17/21 04:54 Add Manual Diff Complete 08/15/21 15:59 Total Counted 100 08/15/21 15:59 Seg Neutrophils % 43.7 % (40.0-70.0) 08/17/21 04:54 Seg Neuts % (Manual) 62.0 % (40.0-70.0) 08/15/21 15:59 Band Neutrophils % 3.0 % 08/15/21 15:59 Lymphocytes % (Manual) 23.0 % (13.4-35.0) 08/15/21 15:59 Reactive Lymphs % (Man) 0 % 08/15/21 15:59 Monocytes % (Manual) 10.0 % (0.0-7.3) H 08/15/21 15:59 Eosinophils % (Manual) 2.0 % (0.0-4.3) 08/15/21 15:59 Basophils % (Manual) 0 % (0.0-1.8) 08/15/21 15:59 Metamyelocytes % 0 % 08/15/21 15:59 Myelocytes % 0 % 08/15/21 15:59 Promyelocytes % 0 % 08/15/21 15:59 Blast Cells % 0 % 08/15/21 15:59 Nucleated RBC % Not Reportable 08/15/21 15:59 Seg Neutrophils # 2.1 K/mm3 (1.8-7.7) 08/17/21 04:54 Seg Neutrophils # Man 3.2 K/mm3 (1.8-7.7) 08/15/21 15:59 Band Neutrophils # 0.2 K/mm3 08/15/21 15:59 Lymphocytes # (Manual) 1.2 K/mm3 (1.2-5.4) 08/15/21 15:59 Abs React Lymphs (Man) 0.0 K/mm3 08/15/21 15:59 Monocytes # (Manual) 0.5 K/mm3 (0.0-0.8) 08/15/21 15:59 Eosinophils # (Manual) 0.1 K/mm3 (0.0-0.4) 08/15/21 15:59 Basophils # (Manual) 0.0 K/mm3 (0.0-0.1) 08/15/21 15:59 Metamyelocytes # 0.0 K/mm3 08/15/21 15:59 Myelocytes # 0.0 K/mm3 08/15/21 15:59 Promyelocytes # 0.0 K/mm3 08/15/21 15:59 Blast Cells # 0.0 K/mm3 08/15/21 15:59 WBC Morphology Not Reportable 08/15/21 15:59 Hypersegmented Neuts Not Reportable 08/15/21 15:59 Hyposegmented Neuts Not Reportable 08/15/21 15:59 Hypogranular Neuts Not Reportable 08/15/21 15:59 Smudge Cells Not Reportable 08/15/21 15:59 Toxic Granulation Not Reportable 08/15/21 15:59 Toxic Vacuolation Not Reportable 08/15/21 15:59 Dohle Bodies Not Reportable 08/15/21 15:59 Pelger-Huet Anomaly Not Reportable 08/15/21 15:59 Leila Rods Not Reportable 08/15/21 15:59 Platelet Estimate Consistent w auto 08/15/21 15:59 Clumped Platelets Not Reportable 08/15/21 15:59 Plt Clumps, EDTA Not Reportable 08/15/21 15:59 Large Platelets Not Reportable 08/15/21 15:59 Giant Platelets Not Reportable 08/15/21 15:59 Platelet Satelliting Not Reportable 08/15/21 15:59 Plt Morphology Comment Not Reportable 08/15/21 15:59 RBC Morphology Not Reportable 08/15/21 15:59 Dimorphic RBCs Not Reportable 08/15/21 15:59 Polychromasia Not Reportable 08/15/21 15:59 Hypochromasia Not Reportable 08/15/21 15:59 Poikilocytosis Few 08/15/21 15:59 Anisocytosis Few 08/15/21 15:59 Microcytosis Not Reportable 08/15/21 15:59 Macrocytosis Not Reportable 08/15/21 15:59 Spherocytes Not Reportable 08/15/21 15:59 Pappenheimer Bodies Not Reportable 08/15/21 15:59 Sickle Cells Not Reportable 08/15/21 15:59 Target Cells Not Reportable 08/15/21 15:59 Tear Drop Cells Not Reportable 08/15/21 15:59 Ovalocytes Few 08/15/21 15:59 Helmet Cells Not Reportable 08/15/21 15:59 Weber-[place] Bodies Not Reportable 08/15/21 15:59 [place] Rings Not Reportable 08/15/21 15:59 Eli Cells Few 08/15/21 15:59 Bite Cells Not Reportable 08/15/21 15:59 Crenated Cell Not Reportable 08/15/21 15:59 Elliptocytes Not Reportable 08/15/21 15:59 Acanthocytes (Spur) Not Reportable 08/15/21 15:59 Rouleaux Not Reportable 08/15/21 15:59 Hemoglobin C Crystals Not Reportable 08/15/21 15:59 Schistocytes Not Reportable 08/15/21 15:59 Malaria parasites Not Reportable 08/15/21 15:59 [place] Bodies Not Reportable 08/15/21 15:59 Hem Pathologist Commnt No 08/15/21 15:59 Sodium 137 mmol/L (137-145) 08/17/21 04:54 Potassium 3.2 mmol/L (3.6-5.0) L 08/17/21 04:54 Chloride 101.5 mmol/L (98-107) 08/17/21 04:54 Carbon Dioxide 18 mmol/L (22-30) L 08/17/21 04:54 Anion Gap 21 mmol/L 08/17/21 04:54 BUN 77 mg/dL (7-17) H 08/17/21 04:54 Creatinine 7.7 mg/dL (0.6-1.2) H 08/17/21 04:54 Estimated GFR 6 ml/min 08/17/21 04:54 BUN/Creatinine Ratio 10 % 08/17/21 04:54 Glucose 96 mg/dL (65-100) 08/17/21 04:54 POC Glucose 81 mg/dL (70-105) 08/16/21 07:32 Calcium 7.9 mg/dL (8.4-10.2) L 08/17/21 04:54 Total Bilirubin 0.30 mg/dL (0.1-1.2) 08/15/21 20:18 AST 26 units/L (5-40) 08/15/21 20:18 ALT 51 units/L (7-56) 08/15/21 20:18 Alkaline Phosphatase 67 units/L (35-129) 08/15/21 20:18 Troponin T 0.098 ng/mL (0.00-0.029) H 08/16/21 04:14 Total Protein 6.5 g/dL (6.3-8.2) 08/15/21 20:18 Albumin 3.7 g/dL (3.9-5) L 08/15/21 20:18 Albumin/Globulin Ratio 1.3 % 08/15/21 20:18 Triglycerides 192 mg/dL (2-149) H 08/15/21 15:59 Cholesterol 245 mg/dL (50-199) H 08/15/21 15:59 LDL Cholesterol Direct 144 mg/dL (50-130) H 08/15/21 15:59 HDL Cholesterol 58 mg/dL (40-59) 08/15/21 15:59 Cholesterol/HDL Ratio 4.22 % 08/15/21 15:59 TSH 0.827 mlU/mL (0.270-4.200) 08/16/21 17:13 Garrett/IV: Voiding Method Toilet Active Medications - Current Medications Current Medications: Generic Name Dose Route Start Last Admin Trade Name Freq PRN Reason Stop Dose Admin Acetaminophen 650 mg 08/15/21 19:52 Acetaminophen 325 Mg Tab PO Q4H PRN Pain MILD(1-3)/Fever >100.5/ALVAREZ Amlodipine Besylate 10 mg 08/15/21 21:00 08/17/21 09:19 Amlodipine 10 Mg Tab PO 10 mg DAILY WILLIE Administration Aspirin 81 mg 08/15/21 21:00 08/17/21 09:17 Aspirin 81 Mg Tab Chew PO 81 mg QDAY WILLIE Administration Benzonatate 100 mg 08/16/21 16:32 08/17/21 09:17 Benzonatate 100 Mg Cap PO 100 mg Q8HR PRN Administration cough Calcitriol 0.5 mcg 08/17/21 10:00 08/17/21 09:24 Calcitriol 0.5 Mcg Cap PO 0.5 mcg QDAY WILLIE Administration Carvedilol 6.25 mg 08/16/21 18:00 08/17/21 20:59 Carvedilol 6.25 Mg Tab PO 6.25 mg BID WILLIE Administration Clopidogrel Bisulfate 75 mg 08/15/21 20:00 08/17/21 09:19 Clopidogrel 75 Mg Tab PO 75 mg QDAY WILLIE Administration Heparin Sodium (Porcine) 5,000 unit 08/15/21 22:00 08/17/21 20:59 Heparin 5,000 Unit/1 Ml Vial SUB-Q 5,000 unit Q12HR WILLIE Administration Hydralazine HCl 20 mg 08/16/21 07:31 08/17/21 04:34 Hydralazine 20 Mg/1 Ml Inj IV 20 mg Q4HR PRN Administration Hypertension Hydralazine HCl 100 mg 08/16/21 20:00 08/17/21 21:00 Hydralazine 25 Mg Tab PO 100 mg TID WILLIE Administration Hydralazine HCl 20 mg 08/18/21 08:22 Hydralazine 20 Mg/1 Ml Inj IV 08/18/21 08:23 ONCE ONE Metoclopramide HCl 10 mg 08/15/21 19:53 Metoclopramide 10 Mg/2 Ml Inj IV Q6H PRN Nausea And Vomiting Minoxidil 5 mg 08/17/21 10:00 08/17/21 12:01 Minoxidil 2.5 Mg Tab PO 5 mg QDAY WILLIE Administration Morphine Sulfate 2 mg 08/15/21 19:53 Morphine 2 Mg/1 Ml Inj IV Q4H PRN Pain, Moderate (4-6) Ondansetron HCl 4 mg 08/15/21 19:52 Ondansetron 4 Mg/2 Ml Inj IV Q8H PRN Nausea And Vomiting Oxycodone/Acetaminophen 1 tab 08/15/21 19:53 Oxycodone /Acetaminophen 5-325mg Tab PO Q6H PRN Pain, Moderate (4-6) Pantoprazole Sodium 40 mg 08/15/21 20:00 08/17/21 09:19 Pantoprazole 40 Mg Tab PO 40 mg QDAY WILLIE Administration Sodium Chloride 10 ml 08/15/21 22:00 08/18/21 00:07 Sodium Chloride 0.9% 10 Ml Flush Syringe IV 10 ml BID WILLIE Administration Sodium Chloride 10 ml 08/15/21 19:52 Sodium Chloride 0.9% 10 Ml Flush Syringe IV PRN PRN LINE FLUSH
[2021-08-18] MEDS: hydrALAZINE 25 MG TAB PO SCH ×3 (08:42→22:00)
--- NOTE | 2021-08-18 10:32 | Progress Note ---
Subjective Principal diagnosis: Syncope Interval history: Patient was seen today for follow-up of multiple renal related issues patient is aware of advanced nature of renal failure, potassium noted to be 3.2 creatinine 7.7 hemoglobin 8.1, No complaints of any chest pain pressure or shortness of breath Interdisciplinary notes that also reviewed Events of 24 hours vitals labs intake output medications were reviewed Past medical history: Reviewed Family history: Reviewed Social history: Reviewed Allergies: Reviewed Physical examination: Vitals: Reviewed HEENT: No pallor or icterus oral mucosa moist Neck: Supple no JVD no thyromegaly Chest: Bilateral clear to auscultation anteriorly Heart: Regular rate and rhythm S1-S2 heard no S3-S4 Abdomen: Soft nontender no voluntary guarding rigidity rebound Extremity: Dry skin less than 1+ peripheral edema Psychiatric: No evidence of agitation and aggression noted Dermatology: No petechial rashes Labs and x-rays: Reviewed from today Assessment and plan #Stage V chronic kidney disease, patient noted to have significantly elevated creatinine not having any symptoms, fistula has already been placed we will continue to monitor for any need for renal replacement therapy #Anemia in chronic kidney disease, continue with erythropoietin will need to follow-up with nuclear radiologist Hypertension and chronic kidney disease goal blood pressure around 135/80, needs follow-up in the office does have history of bradycardia continue to follow-up with cardiology, also has had history of syncope Most likely she has secondary hypertension and may benefit from addition of Ald actone if there is no absolute contraindication Anemia also needs to be corrected to a hemoglobin target of around 10 Syncope appears to be multifactorial, cardiology following, Upon discharge will need follow-up in the office within a week Bone mineral disorder and secondary hyperparathyroidism: Adequately counseled educated for monitoring of phosphorus and PTH, avoidance of processed food foll ow a renal diet we'll continue to follow and make recommendation for renal standpoint Objective - Vital Signs Vital signs: Vital Signs - 12hr 08/17/21 08/18/21 08/18/21 23:24 00:00 04:09 Temperature 99.7 F H 98.8 F Pulse Rate 68 72 Respiratory 16 14 Rate Blood Pressure 155/53 174/61 O2 Sat by Pulse 97 98 98 Oximetry 08/18/21 08/18/21 04:10 07:37 Temperature 98.8 F 99.0 F Pulse Rate 69 70 Respiratory 14 16 Rate Blood Pressure 173/60 152/48 O2 Sat by Pulse 97 97 Oximetry - Lab 08/17/21 04:54 08/17/21 04:54 Most recent lab results Calcium 7.9 mg/dL (8.4-10.2) L 08/17/21 04:54 Medications & Allergies - Medications Allergies/Adverse Reactions: Allergies No Known Allergies Allergy (Verified 08/15/21 15:41) Home Medications: Home Medications Medication Instructions Recorded Confirmed Last Taken Type Aspirin [Aspirin BABY CHEW TAB] 81 mg PO QDAY 11/01/20 11/13/20 11/13/20 05:00 History Clopidogrel [Plavix] 75 mg PO QDAY 11/01/20 11/13/20 11/13/20 05:00 History Pantoprazole [Protonix TAB] 40 mg PO QDAY 11/01/20 11/13/20 11/13/20 05:00 History amLODIPine 10 mg PO DAILY 11/01/20 11/13/20 11/13/20 05:00 History carvediloL [Coreg] 25 mg PO BID 11/01/20 11/13/20 11/13/20 05:00 History cloNIDine [Catapres] 0.1 mg PO QHS 11/01/20 11/13/20 11/12/20 09:00 History hydrALAZINE [Apresoline TAB] 50 mg PO BID 11/01/20 11/13/20 11/13/20 05:00 History hydroCHLOROthiazide [HCTZ] 25 mg PO QDAY 11/01/20 11/13/20 11/12/20 09:00 History HYDROcodone/APAP 5-325 [[place] 1 each PO Q4HR PRN #40 tablet 11/13/20 Unknown Rx 5/325] Active Medications: Generic Name Dose Route Start Last Admin Trade Name Freq PRN Reason Stop Dose Admin Acetaminophen 650 mg 08/15/21 19:52 Acetaminophen 325 Mg Tab PO Q4H PRN Pain MILD(1-3)/Fever >100.5/ALVAREZ Amlodipine Besylate 10 mg 08/15/21 21:00 08/17/21 09:19 Amlodipine 10 Mg Tab PO 10 mg DAILY WILLIE Administration Aspirin 81 mg 08/15/21 21:00 08/17/21 09:17 Aspirin 81 Mg Tab Chew PO 81 mg QDAY WILLIE Administration Benzonatate 100 mg 08/16/21 16:32 08/17/21 09:17 Benzonatate 100 Mg Cap PO 100 mg Q8HR PRN Administration cough Calcitriol 0.5 mcg 08/17/21 10:00 08/17/21 09:24 Calcitriol 0.5 Mcg Cap PO 0.5 mcg QDAY WILLIE Administration Carvedilol 6.25 mg 08/16/21 18:00 08/17/21 20:59 Carvedilol 6.25 Mg Tab PO 6.25 mg BID WILLIE Administration Clopidogrel Bisulfate 75 mg 08/15/21 20:00 08/17/21 09:19 Clopidogrel 75 Mg Tab PO 75 mg QDAY WILLIE Administration Heparin Sodium (Porcine) 5,000 unit 08/15/21 22:00 08/17/21 20:59 Heparin 5,000 Unit/1 Ml Vial SUB-Q 5,000 unit Q12HR WILLIE Administration Hydralazine HCl 20 mg 08/16/21 07:31 08/17/21 04:34 Hydralazine 20 Mg/1 Ml Inj IV 20 mg Q4HR PRN Administration Hypertension Hydralazine HCl 100 mg 08/16/21 20:00 08/18/21 08:42 Hydralazine 25 Mg Tab PO Not Given TID [facility] Metoclopramide HCl 10 mg 08/15/21 19:53 Metoclopramide 10 Mg/2 Ml Inj IV Q6H PRN Nausea And Vomiting Minoxidil 5 mg 08/17/21 10:00 08/17/21 12:01 Minoxidil 2.5 Mg Tab PO 5 mg QDAY WILLIE Administration Morphine Sulfate 2 mg 08/15/21 19:53 Morphine 2 Mg/1 Ml Inj IV Q4H PRN Pain, Moderate (4-6) Ondansetron HCl 4 mg 08/15/21 19:52 Ondansetron 4 Mg/2 Ml Inj IV Q8H PRN Nausea And Vomiting Oxycodone/Acetaminophen 1 tab 08/15/21 19:53 Oxycodone /Acetaminophen 5-325mg Tab PO Q6H PRN Pain, Moderate (4-6) Pantoprazole Sodium 40 mg 08/15/21 20:00 08/17/21 09:19 Pantoprazole 40 Mg Tab PO 40 mg QDAY WILLIE Administration Sodium Chloride 10 ml 08/15/21 22:00 08/18/21 00:07 Sodium Chloride 0.9% 10 Ml Flush Syringe IV 10 ml BID WILLIE Administration Sodium Chloride 10 ml 08/15/21 19:52 Sodium Chloride 0.9% 10 Ml Flush Syringe IV PRN PRN LINE FLUSH
--- NOTE | 2021-08-18 11:09 | Progress Note ---
Assessment and Plan Patient is a 66-year-old female with a history of CKD and HTN who presented with complaints syncope Syncope/vasovagal Sinus bradycardia Anemia Elevated cardiac troponins/Type II CKD/AV fistula 11/13 Hypertension Echocardiogram 08/15: Normal LV systolic function, EF 50 to 55%, mild left ventricular hypertrophy, severe LAE Lexiscan MPI stress test 08/18/2021-abnormal study with scintigraphic evidence of ischemia in inferolateral area Plan: Patient remains sinus rhythm rate trending 60s to 70s on monitor Patient for Lexiscan stress test this a.m. which was suggestive for signs of ischemia Would like to plan for cardiac cath however due to patient's renal function require clearance from nephrology for cardiac cath. Once cleared by nephrology we will schedule patient for cardiac cath in the meantime we will continue medical management as patient is currently chest pain-free Patient is currently on aspirin, Plavix, Coreg 6.25 mg p.o. twice daily, hydralazine 100 mg p.o. 3 times daily Continue to monitor on telemetry Patient seen in conjunction with Dr. Madison who agrees with this plan. - Patient Problems (1) CKD (chronic kidney disease) Current Visit: Yes Status: Acute Qualifiers: Chronic kidney disease stage: stage 5, not on chronic dialysis Qualified Code(s): N18.5 - Chronic kidney disease, stage 5 (2) Elevated troponin Current Visit: Yes Status: Acute (3) Lightheadedness Current Visit: Yes Status: Acute (4) Sinus bradycardia Current Visit: Yes Status: Acute (5) Type 2 myocardial infarction Current Visit: Yes Status: Acute (6) Anemia Current Visit: Yes Status: Chronic Qualifiers: Anemia type: due to chronic kidney disease Chronic kidney disease stage: stage 5, not on chronic dialysis Qualified Code(s): N18.5 - Chronic kidney disease, stage 5; D63.1 - Anemia in chronic kidney disease (7) Hypertension Current Visit: Yes Status: Chronic Qualifiers: Hypertension type: primary hypertension Qualified Code(s): I10 - Essential (primary) hypertension Subjective Date of service: 08/18/21 Principal diagnosis: Syncope Interval history: Patient for Lexiscan MPI stress test this a.m. Patient denies any complaints Sinus 60s 70s on monitor Objective Vital Signs Temp Pulse Resp BP Pulse Ox 08/18/21 07:37 99.0 F 70 16 152/48 97 08/18/21 04:10 98.8 F 69 14 173/60 97 08/18/21 04:09 98.8 F 72 14 174/61 98 08/18/21 00:00 98 08/17/21 23:24 99.7 F H 68 16 155/53 97 08/17/21 21:00 66 149/57 08/17/21 20:59 66 149/57 08/17/21 19:38 99.3 F 66 16 149/57 99 08/17/21 15:24 99.1 F 65 18 164/63 98 08/17/21 12:00 98 - Physical Examination General: Appears Well HEENT: Positive: EOMI, Normocephaly Neck: Positive: neck supple, trachea midline. Negative: JVD/HJR Cardiac: Positive: Reg Rate and Rhythm Lungs: Positive: Decreased Breath Sounds Neuro: Positive: Grossly Intact Abdomen: Positive: Soft. Negative: Tender Skin: Negative: Rash Musculoskeletal: No Pain Extremities: Present: lower extr. pulses. Absent: edema - Imaging and Cardiology EKG: report reviewed, image reviewed Echo: report reviewed - Telemetry EKG Rhythm: Sinus Rhythm - EKG Sinus rhythms and dysrhythmias: sinus rhythm
[2021-08-18] MEDS: CALCITRIOL 0.5 MCG CAP PO SCH (11:58)
[2021-08-18] MEDS: MINOXIDIL 2.5 MG TAB PO SCH (11:58)
[2021-08-18] MEDS: ASPIRIN 81 MG TAB CHEW PO SCH (11:59)
[2021-08-18] MEDS: amLODIPine 10 MG TAB PO SCH (11:59)
[2021-08-18] MEDS: CLOPIDOGREL 75 MG TAB PO SCH (11:59)
[2021-08-18] MEDS: PANTOPRAZOLE 40 MG TAB PO SCH (11:59)
[2021-08-18] MEDS: HEPARIN 5,000 UNIT/1 ML VIAL SUB-Q SCH ×2 (11:59→22:05)
[2021-08-18] MEDS: carvediloL 6.25 MG TAB PO SCH ×2 (11:59→22:00)
[2021-08-18 12:08] LABS: Calcium 8.9 mg/dL (8.4-10.2)
--- NOTE | 2021-08-18 12:11 | Nuclear Medicine Report ---
APPROVED REPORT Exam: Nuclear Stress Test Indication: [facility] pain [facility] Ht: 5 ft 4 in Wt: 166 lbs BSA: 1.81 m2 HR: 71 bpmBP: 160/54 mmHgBMI: 28.49 Stress Test Details Stress Test: Pharmacologic stress testing performed using 0.4 mg of regadenoson per 5 mL given IV over 10 seconds. Reason for pharmacologic stress test: physical limitation. HR Resting HR: 71 bpm Max HR Achieved: 74 bpm Max Heart Rate (APMHR): 154 bpm Target HR (85% APMHR): 130 bpm % of APMHR: 48 Recovery HR: 71 bpm BP Resting BP: 160/54 mmHg Max BP: 161/56 mmHg Recovery BP: 96/31 mmHg ECG Resting ECG: Sinus Rhythm, nonspecific T abnormalities, long QT INTERVAL Stress ECG: SINUS RHYTHM WITH PAC'S, SINUS BRADYCARDIA ST Change: Horizontal ST depression Maximum ST Deviation: 1.5 mm Arrhythmia: APC's,some toimes few in a row noted. Recovery ECG: Sinus Rhythm Recovery ST Change: Horizontal ST depression Recovery ST Deviation: 1.5 mm Recovery Arrhythmia: APC Clinical Reason for Termination: Completed protocol Stress Symptoms: Nausea Patient was nauseated with low B.P post vasodilation . NM EXAM: Myocardial Perfusion REST/STRESS Imaging Protocol: Rest Tc-99m/Stress Tc-99m 1 day Resting Data Rest SPECT myocardial perfusion imaging was performed in supine position 45 minutes following the intravenous injection of 10 mCi of Tc-99m Myoview. Time of rest injection: 0700 Date: 08/18/2021 Pharmacologic Stress Pharmacologic stress test was performed by injecting Regadenoson 0.4 mg IV push followed by the intravenous injection of 28 mCi of Tc-99m Myoview. Time of stress injection: 1015 Date: 08/18/2021 Gated Stress SPECT was performed 30 minutes after stress injection. The images were gated to evaluate regional wall motion and calculate left ventricular ejection fraction. Study Data TID = 1.03. Perfusion Wall Motion LVEF was normal with calculated LVEF of 63%. Nuclear Conclusion ECG Findings: positive for ischemia Clinical Findings: negative for ischemia Nuclear Findings: equivocal Exercise Capacity: not assessed Left Ventricular Function: normal Risk Study: moderate Abnormal study. Scintigraphic evidence for ischemia in inferolateral area,equivocal finding.suggest clinical correlation.
--- NOTE | 2021-08-18 15:35 | Vascular Lab Report ---
DUPLEX DOPPLER ULTRASOUND CAROTID, BILATERAL INDICATION / CLINICAL INFORMATION: Syncope. COMPARISON: Carotid Doppler 03/12/2010. FINDINGS: RIGHT CAROTID: Mild atherosclerotic plaque. - PLAQUE ESTIMATE (%): < 50% - CCA velocity: 123 cm/sec. - ICA peak systolic velocity: 121 cm/sec. - ICA/CCA PSV Ratio: Less than 2. Right Vertebral Artery: Antegrade flow. LEFT CAROTID: Minimal atherosclerotic plaque. - PLAQUE ESTIMATE (%): < 50% - CCA velocity: 123 cm/sec. - ICA peak systolic velocity: 102 cm/sec. - ICA/CCA PSV Ratio: Less than 2. Left Vertebral Artery: Antegrade flow. IMPRESSION: 1. Right Internal Carotid Artery: Less than 50% diameter stenosis. 2. Left Internal Carotid Artery: Less than 50% diameter stenosis. Velocity criteria are extrapolated from diameter data as defined by the Society of Radiologists in Ul trasound Consensus Conference, Radiology 2003; 229;340-346. NO STENOSIS (NORMAL) - Plaque = none; ICA PSV < 125 cm/sec; ICA/CCA PSV Ratio < 2.0 <50% STENOSIS - Plaque < 50%; ICA PSV < 125 cm/sec; ICA/CCA PSV Ratio < 2.0 50-69% STENOSIS - Plaque > 50%; ICA PSV = 125-230 cm/sec; ICA/CCA PSV Ratio = 2.0-4.0 >70% BUT <100% STENOSIS - Plaque > 50%; ICA PSV > 230 cm/sec; ICA/CCA PSV Ratio > 4.0 NEAR OCCLUSION - Plaque = visible lumen; ICA PSV = high/low/none; ICA/CCA PSV Ratio = variable TOTAL OCCLUSION - Plaque = no lumen; ICA PSV = none; ICA/CCA PSV Ratio = N/A Scribed by: Eugenia Hernandez RDMS, RVT, RMSKS Scribed: 08/18/2021 1:49 PM I have reviewed the images, agree with this report, and edited this report as needed. Signer Name: Randal Palomares MD Signed: 08/18/2021 3:31 PM Workstation Name: [id number]
--- NOTE | 2021-08-18 22:00 | Event Note ---
Reviewed cardiology recommendation the patient requires cardiac catheterization however due to advanced nature of renal failure patient will be prone to worsening of renal failure in that case post catheterization we can consider a Vas-Cath placement and dialysis depending on the labs tomorrow, if the fistula is not ready, will also check with vascular surgery if fistula is okay to use we will consider using the fistula post catheterization he will continue with hemodialysis in the outpatient setting, necessary cardiac testing should not be held including cardiac catheterization, will discuss with patient tomorrow
[2021-08-19 06:33] LABS: Hematocrit 24.3 % (30.3-42.9); Hemoglobin 8.2 gm/dl (10.1-14.3); Mean Corpuscular HGB Conc 34 % (30-34); Mean Corpuscular Volume 90 fl (79-97); Platelet Count 239 K/mm3 (140-440); Red Blood Count 2.71 M/mm3 (3.65-5.03); Red Cell Distribution Width 16.7 % (13.2-15.2)
[2021-08-19 06:58] LABS: Calcium 8.4 mg/dL (8.4-10.2)
--- NOTE | 2021-08-19 08:24 | Progress Note ---
Subjective Principal diagnosis: Syncope Interval history: Patient was seen today for follow-up of multiple renal related issues Interdisciplinary notes that also reviewed Events of 24 hours vitals labs intake output medications were reviewed Past medical history: Reviewed Family history: Reviewed Social history: Reviewed Allergies: Reviewed Physical examination: Vitals: Reviewed HEENT: No pallor or icterus oral mucosa moist Neck: Supple no JVD no thyromegaly Chest: Bilateral clear to auscultation anteriorly Heart: Regular rate and rhythm S1-S2 heard no S3-S4 Abdomen: Soft nontender no voluntary guarding rigidity rebound Extremity: Dry skin less than 1+ peripheral edema Psychiatric: No evidence of agitation and aggression noted Dermatology: No petechial rashes Labs and x-rays: Reviewed from today Assessment and plan #Stage V chronic kidney disease,As of today hemoglobin is 8.2, creatinine is even higher at 8.6 potassium is 3.1 bicarbonate has dropped down to 15, patient is in need for initiation of renal replacement therapy, he will need to continue with hemodialysis in the outpatient setting as well, in the absence of which his mortality risk remains very high, Patient currently does have a functioning fistula will check with vascular to make sure is okay to use Patient has transition to end-stage kidney disease will need placement to the dialysis facility [facility] in [facility], patient wants to follow-up with our group #Abnormal myocardial perfusion scan patient does need cardiac catheterization the prevalence of coronary artery disease is very high in patients with chronic kidney disease and hence cardiac catheterization should be considered and pursue d, Anemia and chronic kidney disease: We will start the patient on erythropoietin 20,000 units weekly for now Bone mineral disorder and secondary hyperparathyroidism currently on calcitriol, will need a fresh set of labs tomorrow, #Hypertension we will consider starting the patient on losartan, maximize beta- blockade, ultrafiltration hemodialysis which will result in discontinuation of amlodipine as well as possibly minoxidil we'll continue to follow and make recommendation for renal standpoint Objective - Vital Signs Vital signs: Vital Signs - 12hr 08/18/21 08/18/21 08/18/21 20:31 22:00 23:29 Temperature 99.7 F H Pulse Rate 80 Respiratory 12 Rate Blood Pressure 128/43 117/40 O2 Sat by Pulse 98 97 Oximetry 08/19/21 08/19/21 04:05 07:42 Temperature 99.4 F 99.2 F Pulse Rate 76 76 Respiratory 16 14 Rate Blood Pressure 126/33 126/41 O2 Sat by Pulse 97 98 Oximetry - Lab 08/19/21 04:48 08/19/21 04:48 Most recent lab results Calcium 8.4 mg/dL (8.4-10.2) 08/19/21 04:48 Medications & Allergies - Medications Allergies/Adverse Reactions: Allergies No Known Allergies Allergy (Verified 08/15/21 15:41) Home Medications: Home Medications Medication Instructions Recorded Confirmed Last Taken Type Aspirin [Aspirin BABY CHEW TAB] 81 mg PO QDAY 11/01/20 11/13/20 11/13/20 05:00 History Clopidogrel [Plavix] 75 mg PO QDAY 11/01/20 11/13/20 11/13/20 05:00 History Pantoprazole [Protonix TAB] 40 mg PO QDAY 11/01/20 11/13/20 11/13/20 05:00 History amLODIPine 10 mg PO DAILY 11/01/20 11/13/20 11/13/20 05:00 History carvediloL [Coreg] 25 mg PO BID 11/01/20 11/13/20 11/13/20 05:00 History cloNIDine [Catapres] 0.1 mg PO QHS 11/01/20 11/13/20 11/12/20 09:00 History hydrALAZINE [Apresoline TAB] 50 mg PO BID 11/01/20 11/13/20 11/13/20 05:00 History hydroCHLOROthiazide [HCTZ] 25 mg PO QDAY 11/01/20 11/13/20 11/12/20 09:00 History HYDROcodone/APAP 5-325 [[place] 1 each PO Q4HR PRN #40 tablet 11/13/20 Unknown Rx 5/325] Active Medications: Generic Name Dose Route Start Last Admin Trade Name Freq PRN Reason Stop Dose Admin Acetaminophen 650 mg 08/15/21 19:52 Acetaminophen 325 Mg Tab PO Q4H PRN Pain MILD(1-3)/Fever >100.5/ALVAREZ Amlodipine Besylate 10 mg 08/15/21 21:00 08/18/21 11:59 Amlodipine 10 Mg Tab PO 10 mg DAILY WILLIE Administration Aspirin 81 mg 08/15/21 21:00 08/18/21 11:59 Aspirin 81 Mg Tab Chew PO 81 mg QDAY WILLIE Administration Benzonatate 100 mg 08/16/21 16:32 08/17/21 09:17 Benzonatate 100 Mg Cap PO 100 mg Q8HR PRN Administration cough Calcitriol 0.5 mcg 08/17/21 10:00 08/18/21 11:58 Calcitriol 0.5 Mcg Cap PO 0.5 mcg QDAY WILLIE Administration Carvedilol 6.25 mg 08/16/21 18:00 08/18/21 22:00 Carvedilol 6.25 Mg Tab PO Not Given BID WILLIE Clopidogrel Bisulfate 75 mg 08/15/21 20:00 08/18/21 11:59 Clopidogrel 75 Mg Tab PO 75 mg QDAY WILLIE Administration Heparin Sodium (Porcine) 5,000 unit 08/15/21 22:00 08/18/21 22:05 Heparin 5,000 Unit/1 Ml Vial SUB-Q 5,000 unit Q12HR WILLIE Administration Hydralazine HCl 20 mg 08/16/21 07:31 08/17/21 04:34 Hydralazine 20 Mg/1 Ml Inj IV 20 mg Q4HR PRN Administration Hypertension Hydralazine HCl 100 mg 08/16/21 20:00 08/18/21 22:00 Hydralazine 25 Mg Tab PO Not Given TID WILLIE Metoclopramide HCl 10 mg 08/15/21 19:53 Metoclopramide 10 Mg/2 Ml Inj IV Q6H PRN Nausea And Vomiting Minoxidil 5 mg 08/17/21 10:00 08/18/21 11:58 Minoxidil 2.5 Mg Tab PO 5 mg QDAY WILLIE Administration Morphine Sulfate 2 mg 08/15/21 19:53 Morphine 2 Mg/1 Ml Inj IV Q4H PRN Pain, Moderate (4-6) Ondansetron HCl 4 mg 08/15/21 19:52 Ondansetron 4 Mg/2 Ml Inj IV Q8H PRN Nausea And Vomiting Oxycodone/Acetaminophen 1 tab 08/15/21 19:53 Oxycodone /Acetaminophen 5-325mg Tab PO Q6H PRN Pain, Moderate (4-6) Pantoprazole Sodium 40 mg 08/15/21 20:00 08/18/21 11:59 Pantoprazole 40 Mg Tab PO 40 mg QDAY WILLIE Administration Sodium Chloride 10 ml 08/15/21 22:00 08/18/21 22:00 Sodium Chloride 0.9% 10 Ml Flush Syringe IV 10 ml BID WILLIE Administration Sodium Chloride 10 ml 08/15/21 19:52 Sodium Chloride 0.9% 10 Ml Flush Syringe IV PRN PRN LINE FLUSH
[2021-08-19 08:53] LABS: Basophils % (Manual) 0 % (0.0-1.8); Total Cells Counted 100
[2021-08-19 08:54] LABS: Large Platelets Few; Ovalocytes Few; Platelet Estimate Cons; Poikilocytosis 2+
[2021-08-19] MEDS: hydrALAZINE 25 MG TAB PO SCH ×3 (09:03→22:40)
[2021-08-19] MEDS: CALCITRIOL 0.5 MCG CAP PO SCH (09:41)
[2021-08-19] MEDS: CLOPIDOGREL 75 MG TAB PO SCH (09:41)
[2021-08-19] MEDS: PANTOPRAZOLE 40 MG TAB PO SCH (09:42)
[2021-08-19] MEDS: ASPIRIN 81 MG TAB CHEW PO SCH (09:42)
[2021-08-19] MEDS: HEPARIN 5,000 UNIT/1 ML VIAL SUB-Q SCH ×2 (09:43→22:32)
[2021-08-19] MEDS: carvediloL 6.25 MG TAB PO SCH ×2 (09:55→22:41)
[2021-08-19] MEDS: MINOXIDIL 2.5 MG TAB PO SCH (09:56)
[2021-08-19] MEDS: amLODIPine 10 MG TAB PO SCH (09:56)
--- NOTE | 2021-08-19 10:36 | Progress Note ---
Assessment and Plan Patient is a 66-year-old female with a history of CKD and HTN who presented with complaints syncope Syncope/vasovagal Sinus bradycardia Anemia Elevated cardiac troponins/Type II CKD/AV fistula 11/13 Hypertension Echocardiogram 08/15: Normal LV systolic function, EF 50 to 55%, mild left ventricular hypertrophy, severe LAE Lexiscan MPI stress test 08/18/2021-abnormal study with scintigraphic evidence of ischemia in inferolateral area Plan: Patient remains sinus rhythm rate trending 70s on monitor Patient for Lexiscan stress test this a.m. which was suggestive for signs of ischemia Per nephrology note cardiac catheterization should be pursued. We will plan for cardiac catheterization in the a.m. Patient to be n.p.o. after midnight Patient is currently on aspirin, Plavix, Coreg 6.25 mg p.o. twice daily, hydralazine 100 mg p.o. 3 times daily Continue to monitor on telemetry Discussed plan of care with patient who verbalized understanding and agreement Patient seen in conjunction with Dr. Madison who agrees with this plan. - Patient Problems (1) CKD (chronic kidney disease) Current Visit: Yes Status: Acute Qualifiers: Chronic kidney disease stage: stage 5, not on chronic dialysis Qualified Code(s): N18.5 - Chronic kidney disease, stage 5 (2) Elevated troponin Current Visit: Yes Status: Acute (3) Lightheadedness Current Visit: Yes Status: Acute (4) Sinus bradycardia Current Visit: Yes Status: Acute (5) Type 2 myocardial infarction Current Visit: Yes Status: Acute (6) Anemia Current Visit: Yes Status: Chronic Qualifiers: Anemia type: due to chronic kidney disease Chronic kidney disease stage: stage 5, not on chronic dialysis Qualified Code(s): N18.5 - Chronic kidney disease, stage 5; D63.1 - Anemia in chronic kidney disease (7) Hypertension Current Visit: Yes Status: Chronic Qualifiers: Hypertension type: primary hypertension Qualified Code(s): I10 - Essential (primary) hypertension Subjective Date of service: 08/19/21 Principal diagnosis: Syncope Interval history: Patient resting in bed in no acute distress. Patient denies any cardiac complaints Sinus 70s on monitor Objective Vital Signs Temp Pulse Resp BP Pulse Ox 08/19/21 09:56 73 08/19/21 09:55 73 08/19/21 09:03 76 08/19/21 07:42 99.2 F 76 14 126/41 98 08/19/21 04:05 99.4 F 76 16 126/33 97 08/18/21 23:29 99.7 F H 80 12 117/40 97 08/18/21 22:00 128/43 08/18/21 20:31 98 08/18/21 19:39 99.1 F 84 16 128/43 100 08/18/21 16:03 99.4 F 82 16 121/40 99 08/18/21 14:52 78 127/39 08/18/21 14:00 61 08/18/21 12:09 98.5 F 79 18 148/45 100 08/18/21 12:00 98 - Physical Examination General: Appears Well HEENT: Positive: EOMI, Normocephaly Neck: Positive: neck supple, trachea midline. Negative: JVD/HJR Cardiac: Positive: Reg Rate and Rhythm Lungs: Positive: Normal Breath Sounds Neuro: Positive: Grossly Intact Abdomen: Positive: Soft. Negative: Tender Skin: Negative: Rash Musculoskeletal: No Pain Extremities: Present: lower extr. pulses. Absent: edema - Labs and Meds CBC 08/19/21 Range/Units 04:48 WBC 4.8 (4.5-11.0) K/mm3 RBC 2.71 L (3.65-5.03) M/mm3 Hgb 8.2 L (10.1-14.3) gm/dl Hct 24.3 L (30.3-42.9) % Plt Count 239 (140-440) K/mm3 Comprehensive Metabolic Panel 08/18/21 08/19/21 Range/Units 11:33 04:48 Sodium 139 139 (137-145) mmol/L Potassium 3.7 3.1 L (3.6-5.0) mmol/L Chloride 101.1 104.0 (98-107) mmol/L Carbon Dioxide 16 L 15 L (22-30) mmol/L BUN 78 H 81 H (7-17) mg/dL Creatinine 7.5 H 8.6 H (0.6-1.2) mg/dL Glucose 126 H 93 (65-100) mg/dL Calcium 8.9 8.4 (8.4-10.2) mg/dL - Imaging and Cardiology EKG: report reviewed, image reviewed Echo: report reviewed - Telemetry EKG Rhythm: Sinus Rhythm - EKG Sinus rhythms and dysrhythmias: sinus rhythm
[2021-08-19] MEDS ORDERED: SODIUM CHLORIDE 0.9% 500 ML 500 ML IV SCH (11:00)
--- NOTE | 2021-08-19 16:10 | Progress Note ---
Assessment and Plan -- Abnormal stress test; cardiology plans to do left heart catheterization request renal clearance. I informed plumbing drafter[texted] Dr. Hutchinson -- Symptomatic bradycardia/ resolved Current Visit: Yes Status: Acute Symptoms resolved, Heart rate in 70s Patient's beta-blockers and clonidine held Patient had stress test today which is abnormal Cardiology planning to do left heart catheterization Need renal clearance --Non-ST elevation AR[probably type II] Current Visit: Yes Status: Acute In the setting of chronic kidney disease Abnormal stress test possible heart cath -- Syncope/autonomic dysfunction Current Visit: Yes Status: Acute Probably due to bradycardia Fall precautions, syncope work-up CT head without contrast no acute abnormality Follow cardiology evaluation recommendations --Chronic kidney disease; stage V Current Visit: Yes Status: Acute Patient has AV fistula in her arm But never received hemodialysis Renal following, medical management --Malignant hypertension Current Visit: Yes Status: Acute Resume home antihypertensives, as needed hydralazine Closely monitor --Hypokalemia; Current Visit: Yes Status: Acute Management per nephrology Will replenish if patient is not going for dialysis --Full CODE STATUS -- DVT prophylaxis Current Visit: Yes Status: Acute Subcu heparin renal dose --Advance care planning Current Visit: Yes Status: Acute Patient management as needed Plan of care patient patient and nurse Closely monitor the patient and adjust management as needed Stress test is abnormal Need nephrology clearance and possible left heart catheterization per cardiology Brief history; 66-year-old chronic kidney disease AV fistula in place Never initiated hemodialysis, admitted with shortness of breath and symptomatic bradycardia Cardiology evaluated, stress test was abnormal, cardiology plan to do heart cath Need renal clearance. Nephrology was informed of renal clearance for heart cath Disposition; follow nephrology and cardiology recommendations, discharge when stable Subjective Date of service: 08/19/21 Principal diagnosis: Syncope Objective - Constitutional Vitals: Vital Signs - 12hr 08/19/21 08/19/21 08/19/21 07:42 08:00 09:03 Temperature 99.2 F Pulse Rate 76 76 Respiratory 14 Rate Blood Pressure 126/41 O2 Sat by Pulse 98 98 Oximetry 08/19/21 08/19/21 08/19/21 09:54 09:55 09:56 Temperature Pulse Rate 73 73 Respiratory Rate Blood Pressure 142/47 O2 Sat by Pulse Oximetry 08/19/21 08/19/21 08/19/21 11:30 14:00 14:16 Temperature 98.6 F Pulse Rate 86 75 Respiratory 14 Rate Blood Pressure 138/48 118/38 O2 Sat by Pulse 98 Oximetry - Labs CBC & Chem 7: 08/20/21 05:04 08/20/21 05:04 Labs: Abnormal lab results 08/19/21 08/19/21 Range/Units 04:48 04:48 RBC 2.71 L (3.65-5.03) M/mm3 Hgb 8.2 L (10.1-14.3) gm/dl Hct 24.3 L (30.3-42.9) % RDW 16.7 H (13.2-15.2) % Monocytes % (Manual) 11.0 H (0.0-7.3) % Potassium 3.1 L (3.6-5.0) mmol/L Carbon Dioxide 15 L (22-30) mmol/L BUN 81 H (7-17) mg/dL Creatinine 8.6 H (0.6-1.2) mg/dL HEART Score - HEART Score Age: > 65 Troponin: Troponin T 0.098 ng/mL (0.00-0.029) H 08/16/21 04:14 Troponin: 1-3x normal limit - Critical Actions Critical Actions: 0-3 pts:0.9-1.7%risk of adverse cardiac event.Candidate for discharge
--- NOTE | 2021-08-19 19:46 | Event Note ---
Discussed with patient about need to initiate renal placement therapy she is in agreement to start renal placement therapy will place a vascular surgery consultation for evaluation tomorrow patient has had fistula placed by Dr. Aime Fuentes, to me it appears the fistula has matured well, will order hemodialysis tomorrow which can be initiated postcardiac catheterization this will also help with contrast elimination Hemodialysis can be obtained after cardiac catheterization Patient needs placement in [facility] for dialysis and he wants to follow-up with our group
[2021-08-19] MEDS ORDERED: SODIUM CHLORIDE 0.9% 100 ML IV PRN (19:47)
[2021-08-20 05:54] LABS: Hematocrit 24.2 % (30.3-42.9); Hemoglobin 8.2 gm/dl (10.1-14.3); Mean Corpuscular HGB Conc 34 % (30-34); Mean Corpuscular Volume 89 fl (79-97); Platelet Count 261 K/mm3 (140-440); Red Blood Count 2.72 M/mm3 (3.65-5.03); Red Cell Distribution Width 16.4 % (13.2-15.2)
[2021-08-20 06:17] LABS: INR 0.95 (0.87-1.13)
[2021-08-20 06:48] LABS: Total Cells Counted 100
[2021-08-20 06:49] LABS: Anisocytosis 1+; Basophils % (Manual) 0 % (0.0-1.8)
[2021-08-20 06:50] LABS: Ovalocytes Few; Poikilocytosis 1+
[2021-08-20 06:51] LABS: Large Platelets Few; Platelet Estimate Cons
[2021-08-20] MEDS ORDERED: HEPARIN/NS 5000 UNIT/500ML 1,000 ML IR ONE (09:47)
[2021-08-20] MEDS ORDERED: HEPARIN 10,000 UNITS/10 ML VIAL ONE (09:47)
[2021-08-20] MEDS ORDERED: NITROGLYCERIN SYRINGE 0 ML ONE (09:48)
[2021-08-20] MEDS ORDERED: LIDOCAINE (1%) 10 MG/1 ML VIAL 20 ML MDV ONE (09:49)
[2021-08-20] MEDS ORDERED: SODIUM CHLORIDE 0.9% 250ML 250 ML ONE (09:49)
[2021-08-20] MEDS: ASPIRIN 81 MG TAB CHEW PO SCH (09:57)
[2021-08-20] MEDS: CLOPIDOGREL 75 MG TAB PO SCH (09:57)
[2021-08-20] MEDS ORDERED: MIDAZOLAM 2 MG/2 ML INJ ONE (10:04)
[2021-08-20] MEDS ORDERED: fentaNYL 100 MCG/2 ML INJ ONE (10:05)
[2021-08-20] MEDS ORDERED: VERAPAMIL 5 MG/2 ML INJ ONE (10:05)
[2021-08-20] MEDS ORDERED: LIDOCAINE (1%) 10 MG/1 ML VIAL 20 ML MDV INFILTRATI ONE (10:13)
[2021-08-20] MEDS ORDERED: fentaNYL 100 MCG/2 ML INJ IV ONE ×2 (10:13→10:22)
[2021-08-20] MEDS ORDERED: MIDAZOLAM 2 MG/2 ML INJ IV ONE ×2 (10:13→10:22)
[2021-08-20] MEDS ORDERED: VERAPAMIL 5 MG/2 ML INJ ART-SHEATH ONE (10:28)
[2021-08-20] MEDS ORDERED: HEPARIN 10,000 UNITS/10 ML VIAL IV ONE ×2 (10:30→10:50)
--- NOTE | 2021-08-20 11:13 | Progress Note ---
Assessment and Plan Patient is a 66-year-old female with a history of CKD and HTN who presented with complaints syncope Syncope/vasovagal Sinus bradycardia Anemia Elevated cardiac troponins/Type II CKD/AV fistula 11/13 Hypertension Echocardiogram 08/15: Normal LV systolic function, EF 50 to 55%, mild left ventricular hypertrophy, severe LAE Lexiscan MPI stress test 08/18/2021-abnormal study with scintigraphic evidence of ischemia in inferolateral area Plan: Patient remains sinus rhythm rate trending 70s on monitor Cardiac cath this a.m. showed 70 to 75% lesion in the RCA. Intervention held due to patient's renal function. We will plan for PCI on Wednesday once patient is started on hemodialysis Initiate Lipitor 40mg PO QHS Patient is currently on aspirin, Plavix, Coreg 6.25 mg p.o. twice daily, hydralazine 100 mg p.o. 3 times daily Continue to monitor on telemetry Plan of care discussed with patient who verbalized understanding and acknowledgment Patient seen in conjunction with Dr. Madison who agrees with this plan. - Patient Problems (1) CKD (chronic kidney disease) Current Visit: Yes Status: Acute Qualifiers: Chronic kidney disease stage: stage 5, not on chronic dialysis Qualified Code(s): N18.5 - Chronic kidney disease, stage 5 (2) Elevated troponin Current Visit: Yes Status: Acute (3) Lightheadedness Current Visit: Yes Status: Acute (4) Sinus bradycardia Current Visit: Yes Status: Acute (5) Type 2 myocardial infarction Current Visit: Yes Status: Acute (6) Anemia Current Visit: Yes Status: Chronic Qualifiers: Anemia type: due to chronic kidney disease Chronic kidney disease stage: stage 5, not on chronic dialysis Qualified Code(s): N18.5 - Chronic kidney disease, stage 5; D63.1 - Anemia in chronic kidney disease (7) Hypertension Current Visit: Yes Status: Chronic Qualifiers: Hypertension type: primary hypertension Qualified Code(s): I10 - Essential (primary) hypertension Subjective Date of service: 08/20/21 Principal diagnosis: Syncope Interval history: Patient for cardiac cath this a.m. Sinus 70s on monitor with no events Objective Vital Signs Temp Pulse Resp BP Pulse Ox 08/20/21 09:41 73 08/20/21 05:21 79 08/20/21 03:12 99.0 F 83 16 126/45 99 08/19/21 23:50 98.0 F 78 16 125/42 100 08/19/21 22:41 78 125/44 08/19/21 22:40 78 125/44 08/19/21 22:00 76 08/19/21 20:00 100 08/19/21 19:32 98.8 F 78 14 125/44 99 08/19/21 15:22 98.7 F 73 14 106/37 99 08/19/21 14:17 118/38 08/19/21 14:16 118/38 08/19/21 14:00 75 08/19/21 11:30 98.6 F 86 14 138/48 98 - Physical Examination General: Appears Well HEENT: Positive: EOMI, Normocephaly Neck: Positive: neck supple, trachea midline. Negative: JVD/HJR Cardiac: Positive: Reg Rate and Rhythm Lungs: Positive: Normal Breath Sounds Neuro: Positive: Grossly Intact Abdomen: Positive: Soft. Negative: Tender Skin: Negative: Rash Musculoskeletal: No Pain Extremities: Present: lower extr. pulses. Absent: edema - Labs and Meds Coagulation 08/20/21 Range/Units 05:04 PT 13.7 (12.2-14.9) Sec. INR 0.95 (0.87-1.13) CBC 08/20/21 Range/Units 05:04 WBC 4.8 (4.5-11.0) K/mm3 RBC 2.72 L (3.65-5.03) M/mm3 Hgb 8.2 L (10.1-14.3) gm/dl Hct 24.2 L (30.3-42.9) % Plt Count 261 (140-440) K/mm3 Comprehensive Metabolic Panel 08/20/21 Range/Units 05:04 Sodium 139 (137-145) mmol/L Potassium 3.5 L (3.6-5.0) mmol/L Chloride 102.1 (98-107) mmol/L Carbon Dioxide 16 L (22-30) mmol/L BUN 89 H (7-17) mg/dL Creatinine 9.7 H (0.6-1.2) mg/dL Glucose 116 H (65-100) mg/dL Calcium 8.0 L (8.4-10.2) mg/dL - Imaging and Cardiology EKG: report reviewed, image reviewed Echo: report reviewed - Telemetry EKG Rhythm: Sinus Rhythm - EKG Sinus rhythms and dysrhythmias: sinus rhythm
[2021-08-20] MEDS ORDERED: traMADol 50 MG TAB PO PRN (11:30)
[2021-08-20] MEDS: hydrALAZINE 25 MG TAB PO SCH ×3 (11:38→21:53)
--- NOTE | 2021-08-20 12:07 | Cardiac Catherization Report ---
DATE OF SERVICE: 08/20/2021 INDICATIONS: The patient is a 66-year-old -[place] female with history of essential hypertension and end-stage renal disease, has AV fistula placed, but not started on hemodialysis, had an episode of near syncope versus syncope. Mildly elevated troponin levels were noted. Underwent pharmacological stress testing, showed probable inferolateral ischemia, hence scheduled for cardiac catheterization for definitive diagnosis and treatment. The patient is aware of the procedure, potential complications, and alternatives of therapy available. DESCRIPTION OF PROCEDURE: The patient was brought to the catheterization laboratory after obtaining informed consent. Right radial artery was used for access. The patient was evaluated for moderate sedation and received IV Versed and fentanyl. Subsequently, right radial artery access was obtained using 21-gauge arterial puncture needle. A 5-[place] Islander slender sheath was used. A 5-[place] multipurpose catheter was used to obtain the angiograms of the left coronary artery in multiple views followed by attempting to obtain the angiograms of the right coronary artery. This is arising somewhat inferiorly and anteriorly and selective cannulation was difficult; however, a 6-[place] multipurpose catheter viewed diagnostic selective angiograms. Left ventriculogram was not performed. The patient tolerated the procedure well. At the end of the procedure, catheter and sheath were removed and good hemostasis was achieved with radial band application. The patient was monitored for any side effects from moderate sedation starting at 10:22 a.m. The patient was monitored throughout the procedure with EKG monitoring, hemodynamic monitoring and pulse oximetry. At the end of the procedure, the patient is communicating normally, no focal deficits noted. Breathing normally. The patient's moderate sedation started at 10:22 a.m. and ended at 10:56 a.m. The patient was transferred to the outpatient area in stable condition. Hemostasis was achieved with application of the radial band. No untoward complications were noted. Following findings were noted. HEMODYNAMICS: Opening aortic pressure 140/58. Left ventriculogram was not performed considering has end-stage renal disease almost requiring dialysis. The left coronary system, LCA arises normally from left coronary cusp. The left main is short without any significant disease, LAD large vessel curves around the apex, LAD and its branches and circumflex artery, which is a nondominant vessel and its branch are angiographically showing only very minimal irregularities. Right coronary artery arises somewhat anteriorly and inferiorly. Difficult to cannulate, however, selective angiograms were obtained. This showed evidence of a long mid lesion approaching 70-75%. Distal RCA, which is a large vessel and dominant vessel without significant disease. INTERVENTIONAL PROCEDURE: The patient had 70-75% lesion in the RCA. For further evaluation of hemodynamic significance of this lesion, it was felt the patient would benefit from pressure measurement using IFR wire. IFR was performed in the standard fashion using a pressure wire. A 6-[place]er multipurpose diagnostic catheter was used as the guiding wire. Received 5000 units of heparin. After setting of the wire in a standard fashion. IFR was measured and it was found to be around 0.87 that is abnormal suggesting the lesion is hemodynamically significant. Final angiograms did not show any evidence of any complications. The patient tolerated the procedure well. At the end of the procedure, catheter and sheath were removed and radial band was applied and transferred to the room in stable condition. PLAN: At this time is to intervene on the RCA once the patient was started on dialysis. Nephrology consultation was obtained and planning to have dialysis done. We will plan for intervention of the RCA probably day after tomorrow. Findings were explained to the patient. She understands. TID: [id number] RECEIPT: [id number] LESLIE/CIERRA
[2021-08-20 13:11] LABS: Hepatitis B Surface Antigen Non-Reactive (Negative); Hepatitis C Virus Antibody Non-Reactive (NonReactive)
--- NOTE | 2021-08-20 13:11 | Event Note ---
Date: 08/20/21 Patient had creation of her left arm AVG in October 2020. The graft has an adequate thrill and no evidence of venous outflow obstruction. Okay to begin using left arm arteriovenous graft for dialysis.
[2021-08-20] MEDS: carvediloL 6.25 MG TAB PO SCH ×2 (17:47→21:53)
[2021-08-20] MEDS: HEPARIN 5,000 UNIT/1 ML VIAL SUB-Q SCH ×2 (17:47→21:54)
[2021-08-20] MEDS: amLODIPine 10 MG TAB PO SCH (17:47)
[2021-08-20] MEDS: PANTOPRAZOLE 40 MG TAB PO SCH (17:48)
[2021-08-20] MEDS: CALCITRIOL 0.5 MCG CAP PO SCH (17:48)
[2021-08-20] MEDS: MINOXIDIL 2.5 MG TAB PO SCH (17:48)
--- NOTE | 2021-08-20 18:08 | Electrocardiograph Report ---
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 : 1955 Requested By: BONNIE GORMAN Order Number: [id number] Reading MD: Lisa Pleitez Measurements Intervals [place] Rate: 78 P: 15 [place]: 194 QRS: -20 QRSD: 94 T: 134 QT: 414 QTc: 471 Interpretive Statements Sinus rhythm Frequent PACs LVH with secondary repolarization abnormality Compared to ECG 08/15/2021 16:05:14 Atrial premature complex(es) now present Electronically Signed On 08-20-2021 18:07:58 EDT by Lisa Pleitez
--- NOTE | 2021-08-20 18:16 | Progress Note ---
Subjective Principal diagnosis: Syncope Interval history: Time of reevaluation 8:30 in the morning Patient was seen today for follow-up of multiple renal related issues, patient will be going for cardiac catheterization today No complaints of any chest pain pressure or shortness of breath Interdisciplinary notes that also reviewed Events of 24 hours vitals labs intake output medications were reviewed Past medical history: Reviewed Family history: Reviewed Social history: Reviewed Allergies: Reviewed Physical examination: Vitals: Reviewed HEENT: No pallor or icterus oral mucosa moist Neck: Supple no JVD no thyromegaly Chest: Bilateral clear to auscultation anteriorly Heart: Regular rate and rhythm S1-S2 heard no S3-S4 Abdomen: Soft nontender no voluntary guarding rigidity rebound Extremity: Dry skin less than 1+ peripheral edema Psychiatric: No evidence of agitation and aggression noted Dermatology: No petechial rashes Labs and x-rays: Reviewed from today Assessment and plan #ESRD, patient has been initiated on renal replacement therapy, benefit outweighs the risk of waiting any further, patient will receive hemodialysis treatment today and tomorrow depending on her labs can consider another tr eatment day after, if she is otherwise stable she can be discharged to follow-up with us at the clinic. #Hypertension, optimize blood pressure regimen introduce ARB, discontinue minoxidil start Lasix, Will also consider adding spironolactone, may need to discontinue hydralazine currently reduced to 50 mg 3 times a day #Metabolic acidosis should improve with hemodialysis #Bone mineral disorder, continue with calcitriol for now we will follow this can be switched to Hectorol in the outpatient setting if required, #Anemia in end-stage kidney disease we will start her on erythropoietin,As she w ants to follow-up with our group,outpatient dialysis should be arranged at [facility] facility per patient's choice, #Admitted with sinus bradycardia vasovagal syncope with elevated troponin, patient noted to have RCA stenosis 70 to 75% pending stent placement on Lipitor, currently on aspirin Plavix and Coreg we'll continue to follow and make recommendation for renal standpoint Objective - Vital Signs Vital signs: Vital Signs - 12hr 08/20/21 08/20/21 08/20/21 08:42 09:41 12:00 Temperature 98.9 F Pulse Rate 73 Respiratory 20 Rate Blood Pressure 132/43 O2 Sat by Pulse 98 Oximetry - Lab 08/20/21 05:04 08/20/21 05:04 Most recent lab results Calcium 8.0 mg/dL (8.4-10.2) L 08/20/21 05:04 Medications & Allergies - Medications Allergies/Adverse Reactions: Allergies No Known Allergies Allergy (Verified 08/20/21 08:45) Home Medications: Home Medications Medication Instructions Recorded Confirmed Last Taken Type Aspirin [Aspirin BABY CHEW TAB] 81 mg PO QDAY 11/01/20 08/20/21 11/13/20 05:00 History Clopidogrel [Plavix] 75 mg PO QDAY 11/01/20 08/20/21 11/13/20 05:00 History carvediloL [Coreg] 25 mg PO BID 11/01/20 08/20/21 11/13/20 05:00 History cloNIDine [Catapres] 0.1 mg PO QHS 11/01/20 08/20/21 11/12/20 09:00 History Cholecalciferol (Vitamin D3) 2,000 unit PO QDAY 08/20/21 08/20/21 Unknown History [Vitamin D3 2,000 UNIT CAP] Famotidine [Pepcid] 20 mg PO QDAY 08/20/21 08/20/21 Unknown History Ferrous Sulfate [Iron 325 MG] 325 mg PO QDAY 08/20/21 08/20/21 Unknown History NIFEdipine [Adalat cc] 30 mg PO QDAY 08/20/21 08/20/21 Unknown History calcitrioL [Rocaltrol] 0.5 mcg PO 3XW 08/20/21 08/20/21 Unknown History Active Medications: Generic Name Dose Route Start Last Admin Trade Name Freq PRN Reason Stop Dose Admin Acetaminophen 650 mg 08/15/21 19:52 Acetaminophen 325 Mg Tab PO Q4H PRN Pain MILD(1-3)/Fever >100.5/ALVAREZ Hydrocodone Bitart/Acetaminophen 1 each 08/20/21 11:30 Hydrocodone/Acetaminophen 5-325 Mg Tab PO Q4H PRN Pain, Moderate (4-6) Amlodipine Besylate 10 mg 08/15/21 21:00 08/20/21 17:47 Amlodipine 10 Mg Tab PO Not Given DAILY WILLIE Aspirin 81 mg 08/15/21 21:00 08/20/21 09:57 Aspirin 81 Mg Tab Chew PO 81 mg QDAY [facility] Administration Atorvastatin Calcium 40 mg 08/20/21 22:00 Atorvastatin 40 Mg Tab PO QHS [facility] Benzonatate 100 mg 08/16/21 16:32 08/17/21 09:17 Benzonatate 100 Mg Cap PO 100 mg Q8HR PRN Administration cough Calcitriol 0.5 mcg 08/17/21 10:00 08/20/21 17:48 Calcitriol 0.5 Mcg Cap PO Not Given QDAY [facility] Carvedilol 6.25 mg 08/16/21 18:00 08/20/21 17:47 Carvedilol 6.25 Mg Tab PO Not Given BID [facility] Clopidogrel Bisulfate 75 mg 08/15/21 20:00 08/20/21 09:57 Clopidogrel 75 Mg Tab PO 75 mg QDAY [facility] Administration Heparin Sodium (Porcine) 5,000 unit 08/15/21 22:00 08/20/21 17:47 Heparin 5,000 Unit/1 Ml Vial SUB-Q Not Given Q12HR [facility] Hydralazine HCl 20 mg 08/16/21 07:31 08/17/21 04:34 Hydralazine 20 Mg/1 Ml Inj IV 20 mg Q4HR PRN Administration Hypertension Hydralazine HCl 100 mg 08/16/21 20:00 08/20/21 17:48 Hydralazine 25 Mg Tab PO Not Given TID [facility] Sodium Chloride 100 mls @ 999 mls/hr 08/19/21 19:47 Nacl 0.9% IV ARIELA PRN Hypotension Metoclopramide HCl 10 mg 08/15/21 19:53 Metoclopramide 10 Mg/2 Ml Inj IV Q6H PRN Nausea And Vomiting Minoxidil 5 mg 08/17/21 10:00 08/20/21 17:48 Minoxidil 2.5 Mg Tab PO Not Given QDAY [facility] Morphine Sulfate 2 mg 08/15/21 19:53 Morphine 2 Mg/1 Ml Inj IV Q4H PRN Pain, Moderate (4-6) Ondansetron HCl 4 mg 08/15/21 19:52 Ondansetron 4 Mg/2 Ml Inj IV Q8H PRN Nausea And Vomiting Pantoprazole Sodium 40 mg 08/15/21 20:00 08/20/21 17:48 Pantoprazole 40 Mg Tab PO Not Given QDAY [facility] Sodium Chloride 10 ml 08/15/21 22:00 08/20/21 17:48 Sodium Chloride 0.9% 10 Ml Flush Syringe IV Not Given BID [facility] Sodium Chloride 10 ml 08/15/21 19:52 Sodium Chloride 0.9% 10 Ml Flush Syringe IV PRN PRN LINE FLUSH Tramadol HCl 50 mg 08/20/21 11:30 Tramadol 50 Mg Tab PO Q4H PRN Pain, Mild (1-3)
[2021-08-20] MEDS: BENZONATATE 100 MG CAP PO PRN (21:53)
[2021-08-20] MEDS: HYDROcodone/ACETAMINOPHEN 5-325 MG TAB PO PRN (21:54)
[2021-08-20] MEDS ORDERED: EPOETIN ALFA-EPBX 20,000 UNIT/1 ML VIAL SUB-Q SCH (22:00)
--- NOTE | 2021-08-20 23:43 | Progress Note ---
Assessment and Plan -- Abnormal stress test; cardiology plans to do left heart catheterization request renal clearance. I informed physical therapist[texted] Dr. Hutchinson -- Symptomatic bradycardia/ resolved Current Visit: Yes Status: Acute Symptoms resolved, Heart rate in 70s Patient's beta-blockers and clonidine held Patient had stress test today which is abnormal Cardiology planning to do left heart catheterization Need renal clearance --Non-ST elevation VT[probably type II] Current Visit: Yes Status: Acute In the setting of chronic kidney disease Abnormal stress test possible heart cath -- Syncope/autonomic dysfunction Current Visit: Yes Status: Acute Probably due to bradycardia Fall precautions, syncope work-up CT head without contrast no acute abnormality Follow cardiology evaluation recommendations --Chronic kidney disease; stage V Current Visit: Yes Status: Acute Patient has AV fistula in her arm But never received hemodialysis Renal following, medical management --Malignant hypertension Current Visit: Yes Status: Acute Resume home antihypertensives, as needed hydralazine Closely monitor --Hypokalemia; Current Visit: Yes Status: Acute Management per nephrology Will replenish if patient is not going for dialysis --Full CODE STATUS -- DVT prophylaxis Current Visit: Yes Status: Acute Subcu heparin renal dose --Advance care planning Current Visit: Yes Status: Acute Patient management as needed Plan of care patient patient and nurse Closely monitor the patient and adjust management as needed Stress test is abnormal Need nephrology clearance and possible left heart catheterization per cardiology Brief history; 66-year-old chronic kidney disease AV fistula in place Never initiated hemodialysis, admitted with shortness of breath and symptomatic bradycardia Cardiology evaluated, stress test was abnormal, cardiology plan to do heart cath Need renal clearance. Nephrology was informed of renal clearance for heart cath Disposition; follow nephrology and cardiology recommendations, discharge when stable Subjective Date of service: 08/20/21 Principal diagnosis: Syncope Objective - Constitutional Vitals: Vital Signs - 12hr 08/20/21 08/20/21 08/20/21 12:00 18:00 18:15 Temperature 98.9 F Pulse Rate 80 81 Respiratory 18 Rate Blood Pressure 188/73 189/74 O2 Sat by Pulse 98 Oximetry O2 Sat by Pulse 98 Oximetry [ Throughout] 08/20/21 08/20/21 08/20/21 18:30 18:45 19:00 Temperature Pulse Rate 82 80 84 Respiratory Rate Blood Pressure 154/69 135/62 157/66 O2 Sat by Pulse Oximetry O2 Sat by Pulse Oximetry [ Throughout] 08/20/21 08/20/21 08/20/21 19:15 19:30 19:45 Temperature Pulse Rate 79 80 81 Respiratory Rate Blood Pressure 169/71 166/71 179/73 O2 Sat by Pulse Oximetry O2 Sat by Pulse Oximetry [ Throughout] 08/20/21 08/20/21 08/20/21 20:00 20:30 22:20 Temperature 98.2 F 99.0 F Pulse Rate 80 79 81 Respiratory 18 16 Rate Blood Pressure 157/71 188/71 182/68 O2 Sat by Pulse 98 Oximetry O2 Sat by Pulse 99 Oximetry [ Throughout] - Labs CBC & Chem 7: 08/20/21 05:04 08/20/21 05:04 Labs: Abnormal lab results 08/20/21 08/20/21 08/20/21 Range/Units 05:04 05:04 05:42 RBC 2.72 L (3.65-5.03) M/mm3 Hgb 8.2 L (10.1-14.3) gm/dl Hct 24.2 L (30.3-42.9) % RDW 16.4 H (13.2-15.2) % Lymphocytes % (Manual) 36.0 H (13.4-35.0) % Potassium 3.5 L (3.6-5.0) mmol/L Carbon Dioxide 16 L (22-30) mmol/L BUN 89 H (7-17) mg/dL Creatinine 9.7 H (0.6-1.2) mg/dL Glucose 116 H (65-100) mg/dL POC Glucose 114 H (70-105) mg/dL Calcium 8.0 L (8.4-10.2) mg/dL HEART Score - HEART Score Age: > 65 Troponin: Troponin T 0.098 ng/mL (0.00-0.029) H 08/16/21 04:14 Troponin: 1-3x normal limit - Critical Actions Critical Actions: 0-3 pts:0.9-1.7%risk of adverse cardiac event.Candidate for discharge
[2021-08-21] MEDS: hydrALAZINE 25 MG TAB PO SCH ×4 (00:07→21:39)
--- NOTE | 2021-08-21 08:48 | Progress Note ---
Subjective Principal diagnosis: Syncope Interval history: Patient was seen today for follow-up of multiple renal related issues, Patient tolerated treatment fairly well yesterday feels much better already, she is due for cardiac catheterization tomorrow and in dialysis today vents of 24 hours vitals labs intake output medications were reviewed Past medical history: Reviewed Family history: Reviewed Social history: Reviewed Allergies: Reviewed Physical examination: Vitals: Reviewed HEENT: No pallor or icterus oral mucosa moist Neck: Supple no JVD no thyromegaly Chest: Bilateral clear to auscultation anteriorly Heart: Regular rate and rhythm S1-S2 heard no S3-S4 Abdomen: Soft nontender no voluntary guarding rigidity rebound Extremity: Dry skin less than 1+ peripheral edema AVF ok Psychiatric: No evidence of agitation and aggression noted Dermatology: No petechial rashes Labs and x-rays: Reviewed from today Assessment and plan #End-stage kidney disease: She has had her first dialysis treatment yesterday using the AV fistula, has been accepted at [facility] Patient can receive hemodialysis treatment tomorrow morning we will consider holding of dialysis as she is feeling much better, Monitor dialysis related labs/monitor for any access issues Fluid restriction 1200 cc/day high-protein diet #Coronary artery disease, status postcardiac catheterization pending a stent placement, coming Wednesday if stable after that patient can be discharged, #Access: Needs to be monitored during dialysis, currently no issues reported #Hypertension and volume: , We will continue to work on her blood pressure medication she has been initiated on ARB already continue to ultrafiltrate #Anemia in end-stage kidney disease: To monitor and follow erythropoietin periodically goal hemoglobin between 02-03-04/27 #Bone mineral disorder and secondary hyperparathyroidism Periodically check labs, #Dietary counseling and education was done for end-stage kidney disease, lifestyle changes were discussed avoidance of processed food incorporating high- protein diet, #Dialysis related labs: Reviewed will order periodically and follow #All dialysis related questions have been addressed and discussed with patient all questions have been answered Time spent in patient care 35 minutes We'll continue to follow and make recommendation for renal standpoint Objective - Vital Signs Vital signs: Vital Signs - 12hr 08/20/21 08/20/21 08/21/21 22:00 22:20 00:00 Temperature 99.0 F Pulse Rate 77 81 Respiratory 16 Rate Blood Pressure 182/68 O2 Sat by Pulse 98 98 Oximetry 08/21/21 04:29 Temperature 99.0 F Pulse Rate 74 Respiratory 14 Rate Blood Pressure 154/53 O2 Sat by Pulse 96 Oximetry - Lab 08/20/21 05:04 08/21/21 12:35 Most recent lab results Calcium 8.0 mg/dL (8.4-10.2) L 08/20/21 05:04 Medications & Allergies - Medications Allergies/Adverse Reactions: Allergies No Known Allergies Allergy (Verified 08/20/21 08:45) Home Medications: Home Medications Medication Instructions Recorded Confirmed Last Taken Type Aspirin [Aspirin BABY CHEW TAB] 81 mg PO QDAY 11/01/20 08/20/21 11/13/20 05:00 History Clopidogrel [Plavix] 75 mg PO QDAY 11/01/20 08/20/21 11/13/20 05:00 History carvediloL [Coreg] 25 mg PO BID 11/01/20 08/20/21 11/13/20 05:00 History cloNIDine [Catapres] 0.1 mg PO QHS 11/01/20 08/20/21 11/12/20 09:00 History Cholecalciferol (Vitamin D3) 2,000 unit PO QDAY 08/20/21 08/20/21 Unknown Histo ry [Vitamin D3 2,000 UNIT CAP] Famotidine [Pepcid] 20 mg PO QDAY 08/20/21 08/20/21 Unknown History Ferrous Sulfate [Iron 325 MG] 325 mg PO QDAY 08/20/21 08/20/21 Unknown History NIFEdipine [Adalat cc] 30 mg PO QDAY 08/20/21 08/20/21 Unknown History calcitrioL [Rocaltrol] 0.5 mcg PO 3XW 08/20/21 08/20/21 Unknown History Active Medications: Generic Name Dose Route Start Last Admin Trade Name Freq PRN Reason Stop Dose Admin Acetaminophen 650 mg 08/15/21 19:52 Acetaminophen 325 Mg Tab PO Q4H PRN Pain MILD(1-3)/Fever >100.5/ALVAREZ Hydrocodone Bitart/Acetaminophen 1 each 08/20/21 11:30 08/20/21 21:54 Hydrocodone/Acetaminophen 5-325 Mg Tab PO 1 each Q4H PRN Administration Pain, Moderate (4-6) Aspirin 81 mg 08/15/21 21:00 08/20/21 09:57 Aspirin 81 Mg Tab Chew PO 81 mg QDAY [facility] Administration Atorvastatin Calcium 40 mg 08/20/21 22:00 08/20/21 21:53 Atorvastatin 40 Mg Tab PO 40 mg QHS WILLIE Administration Benzonatate 100 mg 08/16/21 16:32 08/20/21 21:53 Benzonatate 100 Mg Cap PO 100 mg Q8HR PRN Administration cough Calcitriol 0.5 mcg 08/17/21 10:00 08/20/21 17:48 Calcitriol 0.5 Mcg Cap PO Not Given QDAY [facility] Carvedilol 6.25 mg 08/16/21 18:00 08/20/21 21:53 Carvedilol 6.25 Mg Tab PO 6.25 mg BID WILLIE Administration Clopidogrel Bisulfate 75 mg 08/15/21 20:00 08/20/21 09:57 Clopidogrel 75 Mg Tab PO 75 mg QDAY [facility] Administration Epoetin Chan-epbx 20,000 unit 08/20/21 22:00 Epoetin Chan-Epbx 20,000 Unit/1 Ml Vial SUB-Q ARIELA [facility] Furosemide 80 mg 08/21/21 10:00 Furosemide 40 Mg Tab PO QDAY [facility] Heparin Sodium (Porcine) 5,000 unit 08/15/21 22:00 08/20/21 21:54 Heparin 5,000 Unit/1 Ml Vial SUB-Q 5,000 unit Q12HR [facility] Administration Hydralazine HCl 20 mg 08/16/21 07:31 08/17/21 04:34 Hydralazine 20 Mg/1 Ml Inj IV 20 mg Q4HR PRN Administration Hypertension Hydralazine HCl 50 mg 08/20/21 22:30 08/20/21 21:53 Hydralazine 25 Mg Tab PO 50 mg TID [facility] Administration Sodium Chloride 100 mls @ 999 mls/hr 08/19/21 19:47 Nacl 0.9% IV ARIELA PRN Hypotension Metoclopramide HCl 10 mg 08/15/21 19:53 Metoclopramide 10 Mg/2 Ml Inj IV Q6H PRN Nausea And Vomiting Morphine Sulfate 2 mg 08/15/21 19:53 Morphine 2 Mg/1 Ml Inj IV Q4H PRN Pain, Moderate (4-6) Ondansetron HCl 4 mg 08/15/21 19:52 Ondansetron 4 Mg/2 Ml Inj IV Q8H PRN Nausea And Vomiting Pantoprazole Sodium 40 mg 04/22/22 20:00 08/20/21 17:48 Pantoprazole 40 Mg Tab PO Not Given QDAY WILLIE Sodium Chloride 10 ml 08/15/21 22:00 08/20/21 21:53 Sodium Chloride 0.9% 10 Ml Flush Syringe IV 10 ml BID WILLIE Administration Sodium Chloride 10 ml 08/15/21 19:52 Sodium Chloride 0.9% 10 Ml Flush Syringe IV PRN PRN LINE FLUSH Tramadol HCl 50 mg 08/20/21 11:30 Tramadol 50 Mg Tab PO Q4H PRN Pain, Mild (1-3)
[2021-08-21 13:32] LABS: Calcium 8.8 mg/dL (8.4-10.2)
[2021-08-21] MEDS ORDERED: SODIUM CHLORIDE 0.9% 500 ML 500 ML IV SCH (14:00)
--- NOTE | 2021-08-21 14:35 | Progress Note ---
Assessment and Plan Patient is a 66-year-old female with a history of CKD and HTN who presented with complaints syncope Syncope/vasovagal Sinus bradycardia Anemia Elevated cardiac troponins/Type II CKD/AV fistula 11/13 Hypertension Echocardiogram 08/15: Normal LV systolic function, EF 50 to 55%, mild left ventricular hypertrophy, severe LAE Lexiscan MPI stress test 08/18/2021-abnormal study with scintigraphic evidence of ischemia in inferolateral area Plan: Patient remains sinus rhythm rate trending 70s on monitor Cardiac cath this a.m. showed 70 to 75% lesion in the RCA. Intervention held due to patient's renal function. Continue Lipitor 40mg PO QHS Patient is currently on aspirin, Plavix, Coreg 6.25 mg p.o. twice daily, hydralazine 100 mg p.o. 3 times daily Continue to monitor on telemetry Patient for cardiac cath in the AM. N.p.o. after midnight Plan of care discussed with patient who verbalized understanding and acknowledgment Patient seen in conjunction with Dr. Madison who agrees with this plan. - Patient Problems (1) CKD (chronic kidney disease) Current Visit: Yes Status: Acute Qualifiers: Chronic kidney disease stage: stage 5, not on chronic dialysis Qualified Code(s): N18.5 - Chronic kidney disease, stage 5 (2) Elevated troponin Current Visit: Yes Status: Acute (3) Lightheadedness Current Visit: Yes Status: Acute (4) Sinus bradycardia Current Visit: Yes Status: Acute (5) Type 2 myocardial infarction Current Visit: Yes Status: Acute (6) Anemia Current Visit: Yes Status: Chronic Qualifiers: Anemia type: due to chronic kidney disease Chronic kidney disease stage: stage 5, not on chronic dialysis Qualified Code(s): N18.5 - Chronic kidney disease, stage 5; D63.1 - Anemia in chronic kidney disease (7) Hypertension Current Visit: Yes Status: Chronic Qualifiers: Hypertension type: primary hypertension Qualified Code(s): I10 - Essential (primary) hypertension Subjective Date of service: 08/21/21 Principal diagnosis: Syncope Interval history: Patient resting in bed in no acute distress. Patient reports feeling well this a.m. Sinus 70s on monitor with no events Objective Vital Signs Temp Pulse Resp BP Pulse Ox Pulse Ox 08/21/21 10:00 77 08/21/21 08:08 98.8 F 79 18 148/56 97 08/21/21 04:29 99.0 F 74 14 154/53 96 08/21/21 00:00 98 08/20/21 22:20 99.0 F 81 16 182/68 98 08/20/21 22:00 77 08/20/21 20:30 98.2 F 79 18 188/71 99 08/20/21 20:00 80 157/71 08/20/21 19:45 81 179/73 08/20/21 19:30 80 166/71 08/20/21 19:15 79 169/71 08/20/21 19:00 84 157/66 08/20/21 18:45 80 135/62 08/20/21 18:30 82 154/69 08/20/21 18:15 81 189/74 08/20/21 18:00 98.9 F 80 18 188/73 98 - Physical Examination General: Appears Well HEENT: Positive: EOMI, Normocephaly Neck: Positive: neck supple, trachea midline. Negative: JVD/HJR Cardiac: Positive: Reg Rate and Rhythm Lungs: Positive: Normal Breath Sounds Neuro: Positive: Grossly Intact Abdomen: Positive: Soft. Negative: Tender Skin: Negative: Rash Musculoskeletal: No Pain Extremities: Present: lower extr. pulses. Absent: edema - Labs and Meds Comprehensive Metabolic Panel 08/21/21 Range/Units 12:35 Sodium 135 L (137-145) mmol/L Potassium 3.9 (3.6-5.0) mmol/L Chloride 97.3 L (98-107) mmol/L Carbon Dioxide 22 (22-30) mmol/L BUN 59 H (7-17) mg/dL Creatinine 8.0 H (0.6-1.2) mg/dL Glucose 126 H (65-100) mg/dL Calcium 8.8 (8.4-10.2) mg/dL - Imaging and Cardiology EKG: report reviewed, image reviewed Echo: report reviewed - Telemetry EKG Rhythm: Sinus Rhythm - EKG Sinus rhythms and dysrhythmias: sinus rhythm
--- NOTE | 2021-08-21 16:09 | Progress Note ---
Assessment and Plan -- Abnormal stress test; s/p left heart catheterization but plan for PCI on Wednesday cont to follow clinically with aspirin, statin -- Symptomatic bradycardia/ resolved Current Visit: Yes Status: Acute Symptoms resolved, Heart rate in 70s Patient's beta-blockers and clonidine held Patient had stress test which is abnormal s/p left heart catheterization need PCI Need renal clearance --Non-ST elevation AK with CAD Current Visit: Yes Status: Acute In the setting of chronic kidney disease Abnormal stress test possible PCI on Wednesday -- Syncope/autonomic dysfunction Current Visit: Yes Status: Acute Probably due to bradycardia Fall precautions, syncope work-up CT head without contrast no acute abnormality Follow cardiology evaluation recommendations --Chronic kidney disease; stage V now progressed to ESRD Current Visit: Yes Status: Acute Patient has AV fistula in her arm initiated hemodialysis yesterday Renal following, medical management --Malignant hypertension Current Visit: Yes Status: Acute Resume home antihypertensives, as needed hydralazine Closely monitor --Hypokalemia; Current Visit: Yes Status: Acute Management per nephrology Will replenish if patient is not going for dialysis --Full CODE STATUS -- DVT prophylaxis Current Visit: Yes Status: Acute Subcu heparin renal dose --Advance care planning Current Visit: Yes Status: Acute Patient management as needed Plan of care patient patient and nurse Closely monitor the patient and adjust management as needed Stress test is abnormal Need nephrology clearance and possible left heart catheterization per cardiology Brief history; 66-year-old chronic kidney disease AV fistula in place Never initiated hemodialysis, admitted with shortness of breath and symptomatic bradycardia Cardiology evaluated, stress test was abnormal, s/p heart cath and initiated HD on 08/20 planned for PCI on Wednesday Disposition; follow nephrology and cardiology recommendations, discharge when stable Subjective Date of service: 08/21/21 Principal diagnosis: Syncope Interval history: Patient seen and examined, denies any chest pain, vitals stable Objective - Constitutional Vitals: Vital Signs - 12hr 08/21/21 08/21/21 08/21/21 04:29 08:08 10:00 Temperature 99.0 F 98.8 F Pulse Rate 74 79 77 Respiratory 14 18 Rate Blood Pressure 154/53 148/56 O2 Sat by Pulse 96 97 Oximetry General appearance: Present: no acute distress, well-nourished - EENT Eyes: PERRL, EOM intact ENT: hearing intact, clear oral mucosa Ears: bilateral: normal - Neck Neck: supple, normal ROM - Respiratory Respiratory effort: normal Respiratory: bilateral: CTA - Breasts Breasts: normal - Cardiovascular Rhythm: regular Heart Sounds: Present: S1 & S2. Absent: gallop, rub Extremities: pulses intact, No edema, normal color, Full ROM - Gastrointestinal General gastrointestinal: Present: soft, non-tender, non-distended, normal bowel sounds - Integumentary Integumentary: clear, warm, dry - Musculoskeletal Musculoskeletal: 1, strength equal bilaterally - Neurologic Neurologic: moves all extremities - Psychiatric Psychiatric: memory intact, appropriate mood/affect, intact judgment & insight - Labs CBC & Chem 7: 08/22/21 03:57 08/22/21 03:57 Labs: Abnormal lab results 08/20/21 08/21/21 08/21/21 Range/Units 22:18 12:22 12:35 Sodium 135 L (137-145) mmol/L Chloride 97.3 L (98-107) mmol/L BUN 59 H (7-17) mg/dL Creatinine 8.0 H (0.6-1.2) mg/dL Glucose 126 H (65-100) mg/dL POC Glucose 109 H 117 H (70-105) mg/dL HEART Score - HEART Score Age: > 65 Troponin: Troponin T 0.098 ng/mL (0.00-0.029) H 08/16/21 04:14 Troponin: 1-3x normal limit - Critical Actions Critical Actions: 0-3 pts:0.9-1.7%risk of adverse cardiac event.Candidate for discharge
[2021-08-21] MEDS: carvediloL 6.25 MG TAB PO SCH ×2 (16:53→21:39)
[2021-08-21] MEDS: HEPARIN 5,000 UNIT/1 ML VIAL SUB-Q SCH ×2 (16:53→21:40)
[2021-08-21] MEDS: CLOPIDOGREL 75 MG TAB PO SCH (17:24)
[2021-08-21] MEDS: FUROSEMIDE 40 MG TAB PO SCH (17:24)
[2021-08-21] MEDS: CALCITRIOL 0.5 MCG CAP PO SCH (17:24)
[2021-08-21] MEDS: ASPIRIN 81 MG TAB CHEW PO SCH (17:24)
[2021-08-21] MEDS: PANTOPRAZOLE 40 MG TAB PO SCH (17:24)
[2021-08-22] MEDS: HYDROcodone/ACETAMINOPHEN 5-325 MG TAB PO PRN (01:07)
[2021-08-22 04:28] LABS: Hematocrit 22.9 % (30.3-42.9); Mean Corpuscular HGB Conc 35 % (30-34); Mean Corpuscular Volume 89 fl (79-97); Platelet Count 280 K/mm3 (140-440); Red Blood Count 2.56 M/mm3 (3.65-5.03)
[2021-08-22 04:39] LABS: Calcium 8.5 mg/dL (8.4-10.2)
[2021-08-22 04:45] LABS: INR 0.95 (0.87-1.13)
[2021-08-22 07:39] LABS: Basophils % (Manual) 0 % (0.0-1.8); Spherocytes Few; Total Cells Counted 100
[2021-08-22 07:40] LABS: Anisocytosis Few; Large Platelets Few; Ovalocytes Few; Platelet Estimate Consistent w Auto; Poikilocytosis Few
[2021-08-22] MEDS ORDERED: HEPARIN 10,000 UNITS/10 ML VIAL ONE (07:45)
[2021-08-22] MEDS: ASPIRIN 81 MG TAB CHEW PO SCH ×2 (07:45→11:48)
[2021-08-22] MEDS ORDERED: HEPARIN/NS 5000 UNIT/500ML 1,000 ML IR ONE (07:45)
[2021-08-22] MEDS: CLOPIDOGREL 75 MG TAB PO SCH ×2 (07:45→11:48)
[2021-08-22] MEDS ORDERED: LIDOCAINE (1%) 10 MG/1 ML VIAL 20 ML MDV ONE (07:46)
[2021-08-22] MEDS ORDERED: NITROGLYCERIN SYRINGE 3 ML ONE (07:46)
[2021-08-22] MEDS ORDERED: VERAPAMIL 5 MG/2 ML INJ ONE (07:46)
[2021-08-22] MEDS ORDERED: SODIUM CHLORIDE 0.9% 500 ML 500 ML IV SCH ×2 (08:00→14:00)
[2021-08-22] MEDS ORDERED: MIDAZOLAM 2 MG/2 ML INJ ONE (09:07)
[2021-08-22] MEDS ORDERED: fentaNYL 100 MCG/2 ML INJ ONE (09:07)
[2021-08-22] MEDS: hydrALAZINE 25 MG TAB PO SCH ×3 (11:47→21:28)
[2021-08-22] MEDS: carvediloL 6.25 MG TAB PO SCH ×2 (11:48→21:28)
[2021-08-22] MEDS: FUROSEMIDE 40 MG TAB PO SCH (11:48)
[2021-08-22] MEDS: CALCITRIOL 0.5 MCG CAP PO SCH (11:48)
[2021-08-22] MEDS: HEPARIN 5,000 UNIT/1 ML VIAL SUB-Q SCH ×2 (11:48→21:29)
[2021-08-22] MEDS: PANTOPRAZOLE 40 MG TAB PO SCH (11:48)
--- NOTE | 2021-08-22 12:36 | Progress Note ---
Assessment and Plan Assessment and plan #End-stage kidney disease: has been accepted at [place] [facility] facility dc q MWF ok to dc from renal standpoint Monitor dialysis related labs/monitor for any access issues Fluid restriction 1200 cc/day high-protein diet #Coronary artery disease, status postcardiac catheterization pending a stent placement, coming Wednesday if stable after that patient can be discharged, #Access: Needs to be monitored during dialysis, currently no issues reported #Hypertension and volume: , We will continue to work on her blood pressure medication she has been initiated on ARB already continue to ultrafiltrate #Anemia in end-stage kidney disease: To monitor and follow erythropoietin periodically goal hemoglobin between 02-03-04/27 #Bone mineral disorder and secondary hyperparathyroidism Periodically check labs, #Dietary counseling and education was done for end-stage kidney disease, lifestyle changes were discussed avoidance of processed food incorporating high- protein diet, #Dialysis related labs: Reviewed will order periodically and follow Subjective Date of service: 08/22/21 Principal diagnosis: Syncope Interval history: resting in bed today, no acute issues noted Vitals: Reviewed HEENT: No pallor or icterus oral mucosa moist Neck: Supple no JVD no thyromegaly Chest: Bilateral clear to auscultation anteriorly Heart: Regular rate and rhythm S1-S2 heard no S3-S4 Abdomen: Soft nontender no voluntary guarding rigidity rebound Extremity: Dry skin less than 1+ peripheral edema AVF ok Psychiatric: No evidence of agitation and aggression noted Dermatology: No petechial rashes Labs and x-rays: Reviewed from today Objective - Vital Signs Vital signs: Vital Signs - 12hr 08/22/21 08/22/21 03:53 08:00 Temperature 98.8 F Pulse Rate 73 Respiratory 16 Rate Blood Pressure 138/56 O2 Sat by Pulse 95 98 Oximetry - Lab 08/22/21 03:57 08/22/21 03:57 Most recent lab results Calcium 8.5 mg/dL (8.4-10.2) 08/22/21 03:57 Medications & Allergies - Medications Allergies/Adverse Reactions: Allergies No Known Allergies Allergy (Verified 08/20/21 08:45) Home Medications: Home Medications Medication Instructions Recorded Confirmed Last Taken Type Aspirin [Aspirin BABY CHEW TAB] 81 mg PO QDAY 11/01/20 08/20/21 11/13/20 05:00 History Clopidogrel [Plavix] 75 mg PO QDAY 11/01/20 08/20/21 11/13/20 05:00 History carvediloL [Coreg] 25 mg PO BID 11/01/20 08/20/21 11/13/20 05:00 History cloNIDine [Catapres] 0.1 mg PO QHS 11/01/20 08/20/21 11/12/20 09:00 History Cholecalciferol (Vitamin D3) 2,000 unit PO QDAY 08/20/21 08/20/21 Unknown History [Vitamin D3 2,000 UNIT CAP] Famotidine [Pepcid] 20 mg PO QDAY 08/20/21 08/20/21 Unknown History Ferrous Sulfate [Iron 325 MG] 325 mg PO QDAY 08/20/21 08/20/21 Unknown History NIFEdipine [Adalat cc] 30 mg PO QDAY 08/20/21 08/20/21 Unknown History calcitrioL [Rocaltrol] 0.5 mcg PO 3XW 08/20/21 08/20/21 Unknown History Active Medications: Generic Name Dose Route Start Last Admin Trade Name Freq PRN Reason Stop Dose Admin Acetaminophen 650 mg 08/15/21 19:52 Acetaminophen 325 Mg Tab PO Q4H PRN Fever >100.5/ALVAREZ Hydrocodone Bitart/Acetaminophen 1 each 08/20/21 11:30 08/22/21 01:07 Hydrocodone/Acetaminophen 5-325 Mg Tab PO 1 each Q4H PRN Administration Pain, Moderate (4-6) Aspirin 81 mg 08/15/21 21:00 08/22/21 11:48 Aspirin 81 Mg Tab Chew PO Not Given QDAY [facility] Atorvastatin Calcium 40 mg 08/20/21 22:00 08/21/21 21:39 Atorvastatin 40 Mg Tab PO 40 mg QHS [facility] Administration Benzonatate 100 mg 08/16/21 16:32 08/20/21 21:53 Benzonatate 100 Mg Cap PO 100 mg Q8HR PRN Administration cough Calcitriol 0.5 mcg 08/17/21 10:00 08/22/21 11:48 Calcitriol 0.5 Mcg Cap PO Not Given QDAY [facility] Carvedilol 6.25 mg 08/16/21 18:00 08/22/21 11:48 Carvedilol 6.25 Mg Tab PO Not Given BID [facility] Clopidogrel Bisulfate 75 mg 08/15/21 20:00 08/22/21 11:48 Clopidogrel 75 Mg Tab PO Not Given QDAY [facility] Epoetin Chan-epbx 20,000 unit 08/20/21 22:00 Epoetin Chan-Epbx 20,000 Unit/1 Ml Vial SUB-Q ARIELA WILLIE Furosemide 80 mg 08/21/21 10:00 08/22/21 11:48 Furosemide 40 Mg Tab PO Not Given QDAY [facility] Heparin Sodium (Porcine) 5,000 unit 08/15/21 22:00 08/22/21 11:48 Heparin 5,000 Unit/1 Ml Vial SUB-Q Not Given Q12HR WILLIE Hydralazine HCl 20 mg 08/16/21 07:31 08/17/21 04:34 Hydralazine 20 Mg/1 Ml Inj IV 20 mg Q4HR PRN Administration Hypertension Hydralazine HCl 50 mg 08/20/21 22:30 08/22/21 11:47 Hydralazine 25 Mg Tab PO Not Given TID WILLIE Sodium Chloride 100 mls @ 999 mls/hr 08/19/21 19:47 Nacl 0.9% IV ARIELA PRN Hypotension Sodium Chloride 500 mls @ 50 mls/hr 08/22/21 08:00 08/22/21 08:03 Nacl 0.9% 500 Ml IV 08/22/21 21:00 0 mls DIRECT WILLIE Administration Metoclopramide HCl 10 mg 08/15/21 19:53 Metoclopramide 10 Mg/2 Ml Inj IV Q6H PRN Nausea And Vomiting Morphine Sulfate 2 mg 08/15/21 19:53 Morphine 2 Mg/1 Ml Inj IV Q4H PRN Pain, Moderate (4-6) Ondansetron HCl 4 mg 08/15/21 19:52 Ondansetron 4 Mg/2 Ml Inj IV Q8H PRN Nausea And Vomiting Pantoprazole Sodium 40 mg 08/15/21 20:00 08/22/21 11:48 Pantoprazole 40 Mg Tab PO Not Given QDAY WILLIE Sodium Chloride 10 ml 08/15/21 22:00 08/22/21 11:48 Sodium Chloride 0.9% 10 Ml Flush Syringe IV Not Given BID WILLIE Sodium Chloride 10 ml 08/15/21 19:52 Sodium Chloride 0.9% 10 Ml Flush Syringe IV PRN PRN LINE FLUSH Tramadol HCl 50 mg 08/20/21 11:30 Tramadol 50 Mg Tab PO Q4H PRN Pain, Mild (1-3)
--- NOTE | 2021-08-22 13:59 | Progress Note ---
Assessment and Plan Patient is a 66-year-old female with a history of CKD and HTN who presented with complaints syncope Syncope/vasovagal Sinus bradycardia Anemia Elevated cardiac troponins/Type II CKD/AV fistula 11/13 Hypertension Echocardiogram 08/15: Normal LV systolic function, EF 50 to 55%, mild left ventricular hypertrophy, severe LAE Lexiscan MPI stress test 08/18/2021-abnormal study with scintigraphic evidence of ischemia in inferolateral area Plan: Patient remains sinus rhythm rate trending 70s on monitor Cardiac cath showed 70 to 75% lesion in the RCA. Intervention held due to patient's renal function. Continue Lipitor 40mg PO QHS Patient is currently on aspirin, Plavix, Coreg 6.25 mg p.o. twice daily, hydralazine 100 mg p.o. 3 times daily Continue to monitor on telemetry Due to emergency case patient cardiac cath canceled this a.m. Patient will be rescheduled for cardiac cath on Wednesday. Patient to be n.p.o. after midnight on Wednesday Plan of care discussed with patient who verbalized understanding and acknowledgment Patient seen in conjunction with Dr. Madison who agrees with this plan. - Patient Problems (1) CKD (chronic kidney disease) Current Visit: Yes Status: Acute Qualifiers: Chronic kidney disease stage: stage 5, not on chronic dialysis Qualified Code(s): N18.5 - Chronic kidney disease, stage 5 (2) Elevated troponin Current Visit: Yes Status: Acute (3) Lightheadedness Current Visit: Yes Status: Acute (4) Sinus bradycardia Current Visit: Yes Status: Acute (5) Type 2 myocardial infarction Current Visit: Yes Status: Acute (6) Anemia Current Visit: Yes Status: Chronic Qualifiers: Anemia type: due to chronic kidney disease Chronic kidney disease stage: stage 5, not on chronic dialysis Qualified Code(s): N18.5 - Chronic kidney disease, stage 5; D63.1 - Anemia in chronic kidney disease (7) Hypertension Current Visit: Yes Status: Chronic Qualifiers: Hypertension type: primary hypertension Qualified Code(s): I10 - Essential (primary) hypertension Subjective Date of service: 08/22/21 Principal diagnosis: Syncope Interval history: Patient resting in bed in no acute distress. Patient reports feeling well this a.m. Sinus 70s on monitor with no events Objective Vital Signs Temp Pulse Resp BP Pulse Ox Pulse Ox 08/22/21 13:30 74 178/78 08/22/21 13:15 75 187/85 08/22/21 13:00 76 175/77 08/22/21 12:45 76 184/73 08/22/21 12:29 76 160/71 08/22/21 12:20 98.6 F 83 18 161/70 99 08/22/21 08:00 98 08/22/21 03:53 98.8 F 73 16 138/56 95 08/21/21 23:40 99.2 F 76 14 147/57 98 08/21/21 20:00 98 08/21/21 19:41 99.6 F 80 16 158/62 96 08/21/21 15:54 99.2 F 81 18 156/68 96 - Physical Examination General: Appears Well HEENT: Positive: EOMI, Normocephaly Neck: Positive: neck supple, trachea midline. Negative: JVD/HJR Cardiac: Positive: Reg Rate and Rhythm Lungs: Positive: Normal Breath Sounds Neuro: Positive: Grossly Intact Abdomen: Positive: Soft. Negative: Tender Skin: Negative: Rash Musculoskeletal: No Pain Extremities: Present: lower extr. pulses. Absent: edema - Labs and Meds Coagulation 08/22/21 Range/Units 03:57 PT 13.7 (12.2-14.9) Sec. INR 0.95 (0.87-1.13) CBC 08/22/21 Range/Units 03:57 WBC 5.0 (4.5-11.0) K/mm3 RBC 2.56 L (3.65-5.03) M/mm3 Hgb 8.0 L (10.1-14.3) gm/dl Hct 22.9 L (30.3-42.9) % Plt Count 280 (140-440) K/mm3 Comprehensive Metabolic Panel 08/22/21 Range/Units 03:57 Sodium 135 L (137-145) mmol/L Potassium 3.9 (3.6-5.0) mmol/L Chloride 98.0 (98-107) mmol/L Carbon Dioxide 21 L (22-30) mmol/L BUN 68 H (7-17) mg/dL Creatinine 9.3 H (0.6-1.2) mg/dL Glucose 103 H (65-100) mg/dL Calcium 8.5 (8.4-10.2) mg/dL - Imaging and Cardiology EKG: report reviewed, image reviewed Echo: report reviewed - Telemetry EKG Rhythm: Sinus Rhythm - EKG Sinus rhythms and dysrhythmias: sinus rhythm
--- NOTE | 2021-08-22 17:18 | Electrocardiograph Report ---
[facility] Test Date: 2021-08-22 Test Time: 06:54:49 Pat Name: KARIN MURRAY Department: Room: A452 1 Gender: F [employer]oe [employer]bler: LB : 1955 Requested By: BONNIE GORMAN Order Number: [id number] Reading MD: Lisa Pleitez Measurements Intervals [place] Rate: 75 P: 16 MI: 164 QRS: -16 QRSD: 94 T: 141 QT: 426 QTc: 477 Interpretive Statements Sinus rhythm LVH with secondary repolarization abnormality Compared to ECG 08/20/2021 07:55:00 No significant changes Electronically Signed On 08-22-2021 17:17:51 EDT by Lisa Pleitez
--- NOTE | 2021-08-22 19:30 | Progress Note ---
Assessment and Plan Assessment and plan: Brief history; 66-year-old chronic kidney disease AV fistula in place Never initiated hemodialysis, admitted with shortness of breath and symptomatic bradycardia Cardiology evaluated, stress test was abnormal, s/p heart cath and initiated HD on 08/20 planned for PCI for 08/22 --Non-ST elevation AK with CAD Current Visit: Yes Status: Acute Abnormal cardiac stress test in the setting of CKD s/p left heart catheterization, planned for PCI on 08/22, deferred due to scheduling conflict Asymptomatic, cardiology following cont to follow clinically with aspirin, statin -- Symptomatic bradycardia/ resolved Current Visit: Yes Status: Acute Symptoms resolved, Heart rate in 70s Patient's beta-blockers and clonidine held Patient had stress test which is abnormal s/p left heart catheterization, PCI scheduled -- Syncope/autonomic dysfunction Current Visit: Yes Status: Acute Probably due to bradycardia Fall precautions, syncope work-up CT head without contrast no acute abnormality Follow cardiology evaluation recommendations --Chronic kidney disease; stage V now progressed to ESRD Current Visit: Yes Status: Acute Patient has AV fistula in her arm initiated hemodialysis yesterday Renal following, medical management --Malignant hypertension Current Visit: Yes Status: Acute Resume home antihypertensives, as needed hydralazine Closely monitor --Hypokalemia; Current Visit: Yes Status: Acute Management per nephrology Will replenish if patient is not going for dialysis --Full CODE STATUS -- DVT prophylaxis Current Visit: Yes Status: Acute Subcu heparin renal dose --Advance care planning Current Visit: Yes Status: Acute Patient management as needed Plan of care patient patient and nurse Closely monitor the patient and adjust management as needed Stress test is abnormal Need nephrology clearance and possible left heart catheterization per cardiology Disposition; follow nephrology and cardiology recommendations, discharge when stable History Interval history: Patient seen during hemodialysis. Patient denies chest pains or dyspnea. She has no complaints and appears uncomfortable. PCI deferred due to conflict of schedule Hospitalist Physical - Constitutional Vitals: Temp Pulse Resp BP Pulse Ox 98.7 F 78 18 175/60 98 08/22/21 15:48 08/22/21 15:48 08/22/21 15:48 08/22/21 15:48 08/22/21 15:48 General appearance: Present: no acute distress, well-nourished - EENT Eyes: Present: PERRL, EOM intact ENT: hearing intact, clear oral mucosa - Neck Neck: Present: supple - Respiratory Respiratory effort: normal Respiratory: bilateral: CTA - Cardiovascular Rhythm: regular - Extremities Extremities: No edema - Abdominal General gastrointestinal: soft, non-tender - Psychiatric Psychiatric: appropriate mood/affect - Neurologic Neurologic: no focal deficits, moves all extremities HEART Score - HEART Score Age: > 65 Troponin: Troponin T 0.098 ng/mL (0.00-0.029) H 08/16/21 04:14 Troponin: 1-3x normal limit - Critical Actions Critical Actions: 0-3 pts:0.9-1.7%risk of adverse cardiac event.Candidate for discharge Results - Labs CBC & Chem 7: 08/22/21 03:57 08/22/21 03:57 Labs: Laboratory Last Values WBC 5.0 K/mm3 (4.5-11.0) 08/22/21 03:57 RBC 2.56 M/mm3 (3.65-5.03) L 08/22/21 03:57 Hgb 8.0 gm/dl (10.1-14.3) L 08/22/21 03:57 Hct 22.9 % (30.3-42.9) L 08/22/21 03:57 MCV 89 fl (79-97) 08/22/21 03:57 MCH 31 pg (28-32) 08/22/21 03:57 MCHC 35 % (30-34) H 08/22/21 03:57 RDW 16.0 % (13.2-15.2) H 08/22/21 03:57 Plt Count 280 K/mm3 (140-440) 08/22/21 03:57 Lymph % (Auto) 39.1 % (13.4-35.0) H 08/17/21 04:54 [place] % (Auto) Drafter Civil (Cad) 08/22/21 03:57 Eos % (Auto) 4.5 % (0.0-4.3) H 08/17/21 04:54 Baso % (Auto) 0.6 % (0.0-1.8) 08/17/21 04:54 Lymph # (Auto) 1.9 K/mm3 (1.2-5.4) 08/17/21 04:54 [place] # (Auto) 0.6 K/mm3 (0.0-0.8) 08/17/21 04:54 Eos # (Auto) 0.2 K/mm3 (0.0-0.4) 08/17/21 04:54 Baso # (Auto) 0.0 K/mm3 (0.0-0.1) 08/17/21 04:54 Add Manual Diff Complete 08/22/21 03:57 Total Counted 100 08/22/21 03:57 Seg Neutrophils % 43.7 % (40.0-70.0) 08/17/21 04:54 Seg Neuts % (Manual) 65.0 % (40.0-70.0) 08/22/21 03:57 Band Neutrophils % 0 % 08/22/21 03:57 Lymphocytes % (Manual) 22.0 % (13.4-35.0) 08/22/21 03:57 Reactive Lymphs % (Man) 0 % 08/22/21 03:57 Monocytes % (Manual) 11.0 % (0.0-7.3) H 08/22/21 03:57 Eosinophils % (Manual) 2.0 % (0.0-4.3) 08/22/21 03:57 Basophils % (Manual) 0 % (0.0-1.8) 08/22/21 03:57 Metamyelocytes % 0 % 08/22/21 03:57 Myelocytes % 0 % 08/22/21 03:57 Promyelocytes % 0 % 08/22/21 03:57 Blast Cells % 0 % 08/22/21 03:57 Nucleated RBC % Not Reportable 08/22/21 03:57 Seg Neutrophils # 2.1 K/mm3 (1.8-7.7) 08/17/21 04:54 Seg Neutrophils # Man 3.3 K/mm3 (1.8-7.7) 08/22/21 03:57 Band Neutrophils # 0.0 K/mm3 08/22/21 03:57 Lymphocytes # (Manual) 1.1 K/mm3 (1.2-5.4) L 08/22/21 03:57 Abs React Lymphs (Man) 0.0 K/mm3 08/22/21 03:57 Monocytes # (Manual) 0.6 K/mm3 (0.0-0.8) 08/22/21 03:57 Eosinophils # (Manual) 0.1 K/mm3 (0.0-0.4) 08/22/21 03:57 Basophils # (Manual) 0.0 K/mm3 (0.0-0.1) 08/22/21 03:57 Metamyelocytes # 0.0 K/mm3 08/22/21 03:57 Myelocytes # 0.0 K/mm3 08/22/21 03:57 Promyelocytes # 0.0 K/mm3 08/22/21 03:57 Blast Cells # 0.0 K/mm3 08/22/21 03:57 WBC Morphology Not Reportable 08/22/21 03:57 Hypersegmented Neuts Not Reportable 08/22/21 03:57 Hyposegmented Neuts Not Reportable 08/22/21 03:57 Hypogranular Neuts Not Reportable 08/22/21 03:57 Smudge Cells Not Reportable 08/22/21 03:57 Toxic Granulation Not Reportable 08/22/21 03:57 Toxic Vacuolation Not Reportable 08/22/21 03:57 Dohle Bodies Not Reportable 08/22/21 03:57 Pelger-Huet Anomaly Not Reportable 08/22/21 03:57 Leila Rods Not Reportable 08/22/21 03:57 Platelet Estimate Consistent w auto 08/22/21 03:57 Clumped Platelets Not Reportable 08/22/21 03:57 Plt Clumps, EDTA Not Reportable 08/22/21 03:57 Large Platelets Few 08/22/21 03:57 Giant Platelets Not Reportable 08/22/21 03:57 Platelet Satelliting Not Reportable 08/22/21 03:57 Plt Morphology Comment Not Reportable 08/22/21 03:57 RBC Morphology Not Reportable 08/22/21 03:57 Dimorphic RBCs Not Reportable 08/22/21 03:57 Polychromasia Not Reportable 08/22/21 03:57 Hypochromasia Not Reportable 08/22/21 03:57 Poikilocytosis Few 08/22/21 03:57 Anisocytosis Few 08/22/21 03:57 Microcytosis Not Reportable 08/22/21 03:57 Macrocytosis Not Reportable 08/22/21 03:57 Spherocytes Few 08/22/21 03:57 Pappenheimer Bodies Not Reportable 08/22/21 03:57 Sickle Cells Not Reportable 08/22/21 03:57 Target Cells Not Reportable 08/22/21 03:57 Tear Drop Cells Not Reportable 08/22/21 03:57 Ovalocytes Few 08/22/21 03:57 Helmet Cells Not Reportable 08/22/21 03:57 Weber-Shiner Bodies Not Reportable 08/22/21 03:57 Addison Rings Not Reportable 08/22/21 03:57 [place] Cells Not Reportable 08/22/21 03:57 Bite Cells Not Reportable 08/22/21 03:57 Crenated Cell Not Reportable 08/22/21 03:57 Elliptocytes Not Reportable 08/22/21 03:57 Acanthocytes (Spur) Not Reportable 08/22/21 03:57 Rouleaux Not Reportable 08/22/21 03:57 Hemoglobin C Crystals Not Reportable 08/22/21 03:57 Schistocytes Not Reportable 08/22/21 03:57 Malaria parasites Not Reportable 08/22/21 03:57 Devante Bodies Not Reportable 08/22/21 03:57 Hem Pathologist Commnt No 08/22/21 03:57 PT 13.7 Sec. (12.2-14.9) 08/22/21 03:57 INR 0.95 (0.87-1.13) 08/22/21 03:57 Sodium 135 mmol/L (137-145) L 08/22/21 03:57 Potassium 3.9 mmol/L (3.6-5.0) 08/22/21 03:57 Chloride 98.0 mmol/L (98-107) 08/22/21 03:57 Carbon Dioxide 21 mmol/L (22-30) L 08/22/21 03:57 Anion Gap 20 mmol/L 08/22/21 03:57 BUN 68 mg/dL (7-17) H 08/22/21 03:57 Creatinine 9.3 mg/dL (0.6-1.2) H 08/22/21 03:57 Estimated GFR 5 ml/min 08/22/21 03:57 BUN/Creatinine Ratio 7 % 08/22/21 03:57 Glucose 103 mg/dL (65-100) H 08/22/21 03:57 POC Glucose 111 mg/dL (70-105) H 08/22/21 11:54 Calcium 8.5 mg/dL (8.4-10.2) 08/22/21 03:57 Total Bilirubin 0.30 mg/dL (0.1-1.2) 08/15/21 20:18 AST 26 units/L (5-40) 08/15/21 20:18 ALT 51 units/L (7-56) 08/15/21 20:18 Alkaline Phosphatase 67 units/L (35-129) 08/15/21 20:18 Troponin T 0.098 ng/mL (0.00-0.029) H 08/16/21 04:14 Total Protein 6.5 g/dL (6.3-8.2) 08/15/21 20:18 Albumin 3.7 g/dL (3.9-5) L 08/15/21 20:18 Albumin/Globulin Ratio 1.3 % 08/15/21 20:18 Triglycerides 192 mg/dL (2-149) H 08/15/21 15:59 Cholesterol 245 mg/dL (50-199) H 08/15/21 15:59 LDL Cholesterol Direct 144 mg/dL (50-130) H 08/15/21 15:59 HDL Cholesterol 58 mg/dL (40-59) 08/15/21 15:59 Cholesterol/HDL Ratio 4.22 % 08/15/21 15:59 TSH 0.827 mlU/mL (0.270-4.200) 08/16/21 17:13 SARS-CoV-2 (PCR) Negative (Negative) 08/21/21 10:07 Hep Bs Antigen Non-reactive (Negative) 08/20/21 05:04 Hep B Core IgM Ab Non-reactive (NonReactive) 08/20/21 05:04 Hepatitis C Antibody Non-reactive (NonReactive) 08/20/21 05:04 Blood Type B POSITIVE 08/19/21 10:43 Antibody Screen Negative 08/19/21 10:43 Garrett/IV: Voiding Method Toilet Active Medications - Current Medications Current Medications: Generic Name Dose Route Start Last Admin Trade Name Freq PRN Reason Stop Dose Admin Acetaminophen 650 mg 08/15/21 19:52 Acetaminophen 325 Mg Tab PO Q4H PRN Fever >100.5/ALVAREZ Hydrocodone Bitart/Acetaminophen 1 each 08/20/21 11:30 08/22/21 01:07 Hydrocodone/Acetaminophen 5-325 Mg Tab PO 1 each Q4H PRN Administration Pain, Moderate (4-6) Aspirin 81 mg 08/15/21 21:00 08/22/21 11:48 Aspirin 81 Mg Tab Chew PO Not Given QDAY [facility] Atorvastatin Calcium 40 mg 08/20/21 22:00 08/21/21 21:39 Atorvastatin 40 Mg Tab PO 40 mg QHS WILLIE Administration Benzonatate 100 mg 08/16/21 16:32 08/20/21 21:53 Benzonatate 100 Mg Cap PO 100 mg Q8HR PRN Administration cough Calcitriol 0.5 mcg 08/17/21 10:00 08/22/21 11:48 Calcitriol 0.5 Mcg Cap PO Not Given QDAY [facility] Carvedilol 6.25 mg 08/16/21 18:00 08/22/21 11:48 Carvedilol 6.25 Mg Tab PO Not Given BID WILLIE Clopidogrel Bisulfate 75 mg 08/15/21 20:00 08/22/21 11:48 Clopidogrel 75 Mg Tab PO Not Given QDAY [facility] Epoetin Chan-epbx 20,000 unit 08/20/21 22:00 Epoetin Chan-Epbx 20,000 Unit/1 Ml Vial SUB-Q ARIELA [facility] Furosemide 80 mg 08/21/21 10:00 08/22/21 11:48 Furosemide 40 Mg Tab PO Not Given QDAY [facility] Heparin Sodium (Porcine) 5,000 unit 08/15/21 22:00 08/22/21 11:48 Heparin 5,000 Unit/1 Ml Vial SUB-Q Not Given Q12HR [facility] Hydralazine HCl 20 mg 08/16/21 07:31 08/17/21 04:34 Hydralazine 20 Mg/1 Ml Inj IV 20 mg Q4HR PRN Administration Hypertension Hydralazine HCl 50 mg 08/20/21 22:30 08/22/21 17:14 Hydralazine 25 Mg Tab PO Not Given TID WILLIE Sodium Chloride 100 mls @ 999 mls/hr 08/19/21 19:47 Nacl 0.9% IV ARIELA PRN Hypotension Sodium Chloride 500 mls @ 50 mls/hr 08/22/21 08:00 08/22/21 08:03 Nacl 0.9% 500 Ml IV 08/22/21 21:00 0 mls DIRECT WILLIE Administration Sodium Chloride 500 mls @ 50 mls/hr 08/22/21 14:00 Nacl 0.9% 500 Ml IV 08/22/21 23:59 DIRECT WILLIE Metoclopramide HCl 10 mg 08/15/21 19:53 Metoclopramide 10 Mg/2 Ml Inj IV Q6H PRN Nausea And Vomiting Morphine Sulfate 2 mg 08/15/21 19:53 Morphine 2 Mg/1 Ml Inj IV Q4H PRN Pain, Moderate (4-6) Ondansetron HCl 4 mg 08/15/21 19:52 Ondansetron 4 Mg/2 Ml Inj IV Q8H PRN Nausea And Vomiting Pantoprazole Sodium 40 mg 08/15/21 20:00 08/22/21 11:48 Pantoprazole 40 Mg Tab PO Not Given QDAY WILLIE Sodium Chloride 10 ml 08/15/21 22:00 08/22/21 11:48 Sodium Chloride 0.9% 10 Ml Flush Syringe IV Not Given BID WILLIE Sodium Chloride 10 ml 08/15/21 19:52 Sodium Chloride 0.9% 10 Ml Flush Syringe IV PRN PRN LINE FLUSH Tramadol HCl 50 mg 08/20/21 11:30 Tramadol 50 Mg Tab PO Q4H PRN Pain, Mild (1-3) Nutrition/Malnutrition Assess - Dietary Evaluation Nutrition/Malnutrition Findings: Nutrition Notes Start: 08/22/21 11:30 Freq: Status: Active Protocol: Document 08/22/21 11:30 CELESTINO (Rec: 08/22/21 11:34 [facility] [id number]) Nutrition Notes Need for Assessment generated from: LOS Initial or Follow up Brief Note Current Diet Cardiac Height 5 ft 4 in Weight 75.6 kg [place] Body Weight (kg) 54.54 BMI 28.5 Weight Status Overweight Subjective/Other Information Pt screened for LOS. No PO intakes documented since admission. Pt says she eats at least 50% of meals. Burn Absent Trauma Absent Current % PO Fair (50-74%) Minimum of two criteria No Is patient on ventilator? No Is Patient Ambulatory and/or Out of Bed Yes REE-([place]-. Jeor-ambulatory/OOB) [ [id number] [id number]] Calculation Used for Recommendations [facility] Additional Notes Pro needs >1.2g/kg: >91g/day Fluid needs 1-1.5L/day Nutrition Intervention Follow-Up By: 08/27/21 Additional Comments F/U: intakes
[2021-08-23 07:33] LABS: Hematocrit 24.9 % (30.3-42.9); Hemoglobin 8.5 gm/dl (10.1-14.3); Mean Corpuscular HGB Conc 34 % (30-34); Mean Corpuscular Volume 90 fl (79-97); Platelet Count 284 K/mm3 (140-440); Red Blood Count 2.76 M/mm3 (3.65-5.03); Red Cell Distribution Width 15.9 % (13.2-15.2)
[2021-08-23 07:46] LABS: Calcium 8.6 mg/dL (8.4-10.2)
--- NOTE | 2021-08-23 09:46 | Progress Note ---
Assessment and Plan Patient is a 66-year-old female with a history of CKD and HTN who presented with complaints syncope Syncope/vasovagal Sinus bradycardia Anemia Elevated cardiac troponins/Type II CKD/AV fistula 11/13 Hypertension Echocardiogram 08/15: Normal LV systolic function, EF 50 to 55%, mild left ventricular hypertrophy, severe LAE Lexiscan MPI stress test 08/18/2021-abnormal study with scintigraphic evidence of ischemia in inferolateral area Plan: Continue current meds. Patient is chest pain-free overnight. Elective PCI of RCA Wednesday morning. Subjective Principal diagnosis: Syncope Interval history: No issues overnight. PCI was canceled yesterday due to emergency. Objective Vital Signs Temp Pulse Resp BP Pulse Ox Pulse Ox 08/23/21 07:42 98.8 F 76 16 177/68 97 08/23/21 03:48 98.7 F 72 14 145/55 99 08/22/21 23:34 99.0 F 71 16 140/53 94 08/22/21 20:00 98 08/22/21 19:10 99.4 F 81 16 142/54 96 08/22/21 15:48 98.7 F 78 18 175/60 98 08/22/21 14:55 98.0 F 76 18 165/71 99 08/22/21 14:30 76 148/67 08/22/21 14:15 76 157/72 08/22/21 14:00 73 171/70 08/22/21 13:45 75 168/75 08/22/21 13:30 74 178/78 08/22/21 13:15 75 187/85 08/22/21 13:00 76 175/77 08/22/21 12:45 76 184/73 08/22/21 12:29 76 160/71 08/22/21 12:20 98.6 F 83 18 161/70 99 - Physical Examination General: Appears Well HEENT: Positive: EOMI, Normocephaly Neck: Positive: neck supple, trachea midline. Negative: JVD/HJR Neuro: Positive: Grossly Intact Abdomen: Positive: Soft. Negative: Tender Skin: Negative: Rash Musculoskeletal: No Pain Extremities: Present: lower extr. pulses. Absent: edema - Labs and Meds CBC 08/23/21 Range/Units 06:35 WBC 4.4 L (4.5-11.0) K/mm3 RBC 2.76 L (3.65-5.03) M/mm3 Hgb 8.5 L (10.1-14.3) gm/dl Hct 24.9 L (30.3-42.9) % Plt Count 284 (140-440) K/mm3 Comprehensive Metabolic Panel 08/23/21 Range/Units 06:35 Sodium 136 L (137-145) mmol/L Potassium 4.0 (3.6-5.0) mmol/L Chloride 97.3 L (98-107) mmol/L Carbon Dioxide 23 (22-30) mmol/L BUN 46 H (7-17) mg/dL Creatinine 7.8 H (0.6-1.2) mg/dL Glucose 93 (65-100) mg/dL Calcium 8.6 (8.4-10.2) mg/dL - Imaging and Cardiology EKG: report reviewed, image reviewed Echo: report reviewed - EKG Sinus rhythms and dysrhythmias: sinus rhythm
[2021-08-23] MEDS: PANTOPRAZOLE 40 MG TAB PO SCH (09:47)
[2021-08-23] MEDS: FUROSEMIDE 40 MG TAB PO SCH (09:47)
[2021-08-23] MEDS: ASPIRIN 81 MG TAB CHEW PO SCH (09:47)
[2021-08-23] MEDS: hydrALAZINE 25 MG TAB PO SCH ×3 (09:47→23:26)
[2021-08-23] MEDS: CLOPIDOGREL 75 MG TAB PO SCH (09:47)
[2021-08-23] MEDS: carvediloL 6.25 MG TAB PO SCH ×2 (09:47→23:23)
[2021-08-23] MEDS: CALCITRIOL 0.5 MCG CAP PO SCH (09:47)
[2021-08-23] MEDS: HEPARIN 5,000 UNIT/1 ML VIAL SUB-Q SCH ×2 (09:48→23:26)
--- NOTE | 2021-08-23 09:52 | Progress Note ---
Assessment and Plan Assessment and plan #End-stage kidney disease: has been accepted at [facility] dialysis q MWF ok to dc from renal standpoint Monitor dialysis related labs/monitor for any access issues Fluid restriction 1200 cc/day high-protein diet #Coronary artery disease, status postcardiac catheterization pending a stent placement, coming Wednesday if stable after that patient can be discharged, #Access: Needs to be monitored during dialysis, currently no issues reported #Hypertension and volume: , We will continue to work on her blood pressure medication she has been initiated on ARB already continue to ultrafiltrate #Anemia in end-stage kidney disease: To monitor and follow erythropoietin periodically goal hemoglobin between 02-03-04/27 #Bone mineral disorder and secondary hyperparathyroidism Periodically check labs, #Dietary counseling and education was done for end-stage kidney disease, lifestyle changes were discussed avoidance of processed food incorporating high- protein diet, #Dialysis related labs: Reviewed will order periodically and follow Subjective Date of service: 08/23/21 Principal diagnosis: Syncope Interval history: resting in bed today, no acute issues noted Vitals: Reviewed HEENT: No pallor or icterus oral mucosa moist Neck: Supple no JVD no thyromegaly Chest: Bilateral clear to auscultation anteriorly Heart: Regular rate and rhythm S1-S2 heard no S3-S4 Abdomen: Soft nontender no voluntary guarding rigidity rebound Extremity: Dry skin less than 1+ peripheral edema AVF ok Psychiatric: No evidence of agitation and aggression noted Dermatology: No petechial rashes Labs and x-rays: Reviewed from today Objective - Vital Signs Vital signs: Vital Signs - 12hr 08/22/21 08/23/21 08/23/21 23:34 03:48 07:42 Temperature 99.0 F 98.7 F 98.8 F Pulse Rate 71 72 76 Respiratory 16 14 16 Rate Blood Pressure 140/53 145/55 177/68 O2 Sat by Pulse 94 99 97 Oximetry - Lab 08/23/21 06:35 08/23/21 06:35 Most recent lab results Calcium 8.6 mg/dL (8.4-10.2) 08/23/21 06:35 Medications & Allergies - Medications Allergies/Adverse Reactions: Allergies No Known Allergies Allergy (Verified 08/20/21 08:45) Home Medications: Home Medications Medication Instructions Recorded Confirmed Last Taken Type Aspirin [Aspirin BABY CHEW TAB] 81 mg PO QDAY 07/01/1408/20/21 11/13/20 05:00 History Clopidogrel [Plavix] 75 mg PO QDAY 11/01/20 08/20/21 11/13/20 05:00 History carvediloL [Coreg] 25 mg PO BID 11/01/20 08/20/21 11/13/20 05:00 History cloNIDine [Catapres] 0.1 mg PO QHS 11/01/20 08/20/21 11/12/20 09:00 History Cholecalciferol (Vitamin D3) 2,000 unit PO QDAY 08/20/21 08/20/21 Unknown History [Vitamin D3 2,000 UNIT CAP] Famotidine [Pepcid] 20 mg PO QDAY 08/20/21 08/20/21 Unknown History Ferrous Sulfate [Iron 325 MG] 325 mg PO QDAY 08/20/21 08/20/21 Unknown History NIFEdipine [Adalat cc] 30 mg PO QDAY 08/20/21 08/20/21 Unknown History calcitrioL [Rocaltrol] 0.5 mcg PO 3XW 08/20/21 08/20/21 Unknown History Active Medications: Generic Name Dose Route Start Last Admin Trade Name Freq PRN Reason Stop Dose Admin Acetaminophen 650 mg 08/15/21 19:52 Acetaminophen 325 Mg Tab PO Q4H PRN Fever >100.5/ALVAREZ Hydrocodone Bitart/Acetaminophen 1 each 08/20/21 11:30 08/22/21 01:07 Hydrocodone/Acetaminophen 5-325 Mg Tab PO 1 each Q4H PRN Administration Pain, Moderate (4-6) Aspirin 81 mg 08/15/21 21:00 08/23/21 09:47 Aspirin 81 Mg Tab Chew PO 81 mg QDAY WILLIE Administration Atorvastatin Calcium 40 mg 08/20/21 22:00 08/22/21 21:28 Atorvastatin 40 Mg Tab PO 40 mg QHS WILLIE Administration Benzonatate 100 mg 08/16/21 16:32 08/20/21 21:53 Benzonatate 100 Mg Cap PO 100 mg Q8HR PRN Administration cough Calcitriol 0.5 mcg 08/17/21 10:00 08/23/21 09:47 Calcitriol 0.5 Mcg Cap PO 0.5 mcg QDAY WILLIE Administration Carvedilol 6.25 mg 08/16/21 18:00 08/23/21 09:47 Carvedilol 6.25 Mg Tab PO 6.25 mg BID WILLIE Administration Clopidogrel Bisulfate 75 mg 08/15/21 20:00 08/23/21 09:47 Clopidogrel 75 Mg Tab PO 75 mg QDAY WILLIE Administration Epoetin Chan-epbx 20,000 unit 08/20/21 22:00 Epoetin Chan-Epbx 20,000 Unit/1 Ml Vial SUB-Q ARIELA WILLIE Furosemide 80 mg 08/21/21 10:00 08/23/21 09:47 Furosemide 40 Mg Tab PO 80 mg QDAY WILLIE Administration Heparin Sodium (Porcine) 5,000 unit 08/15/21 22:00 08/23/21 09:48 Heparin 5,000 Unit/1 Ml Vial SUB-Q Not Given Q12HR [facility] Hydralazine HCl 20 mg 08/16/21 07:31 08/17/21 04:34 Hydralazine 20 Mg/1 Ml Inj IV 20 mg Q4HR PRN Administration Hypertension Hydralazine HCl 50 mg 08/20/21 22:30 08/23/21 09:47 Hydralazine 25 Mg Tab PO 50 mg TID [facility] Administration Sodium Chloride 100 mls @ 999 mls/hr 08/19/21 19:47 Nacl 0.9% IV ARIELA PRN Hypotension Metoclopramide HCl 10 mg 08/15/21 19:53 Metoclopramide 10 Mg/2 Ml Inj IV Q6H PRN Nausea And Vomiting Morphine Sulfate 2 mg 08/15/21 19:53 Morphine 2 Mg/1 Ml Inj IV Q4H PRN Pain, Moderate (4-6) Ondansetron HCl 4 mg 08/15/21 19:52 Ondansetron 4 Mg/2 Ml Inj IV Q8H PRN Nausea And Vomiting Pantoprazole Sodium 40 mg 08/15/21 20:00 08/23/21 09:47 Pantoprazole 40 Mg Tab PO 40 mg QDAY WILLIE Administration Sodium Chloride 10 ml 08/15/21 22:00 08/23/21 09:47 Sodium Chloride 0.9% 10 Ml Flush Syringe IV 10 ml BID WILLIE Administration Sodium Chloride 10 ml 08/15/21 19:52 Sodium Chloride 0.9% 10 Ml Flush Syringe IV PRN PRN LINE FLUSH Tramadol HCl 50 mg 08/20/21 11:30 Tramadol 50 Mg Tab PO Q4H PRN Pain, Mild (1-3)
[2021-08-23 11:28] LABS: Basophils % (Manual) 0 % (0.0-1.8); Total Cells Counted 100
[2021-08-23 11:29] LABS: Target Cells Few
[2021-08-23 11:30] LABS: Platelet Estimate Consistent w Auto
--- NOTE | 2021-08-23 19:18 | Progress Note ---
Assessment and Plan Assessment and plan: Brief history; 66-year-old chronic kidney disease AV fistula in place Never initiated hemodialysis, admitted with shortness of breath and symptomatic bradycardia Cardiology evaluated, stress test was abnormal, s/p heart cath and initiated HD on 08/20 planned for PCI for 08/22 --Non-ST elevation [place] with CAD Current Visit: Yes Status: Acute Abnormal cardiac stress test in the setting of CKD s/p left heart catheterization, planned for PCI on 08/22, deferred to 08/25 due to scheduling conflict Asymptomatic, cardiology following cont to follow clinically with aspirin, statin -- Symptomatic bradycardia/ resolved Current Visit: Yes Status: Acute Symptoms resolved, Heart rate in 70s clonidine being held and resumed Coreg Patient had stress test which is abnormal s/p left heart catheterization, PCI scheduled -- Syncope/autonomic dysfunction Current Visit: Yes Status: Acute Possibility due to bradycardia Fall precautions, syncope work-up CT head without contrast no acute abnormality Follow cardiology evaluation recommendations --Chronic kidney disease; stage V now progressed to ESRD Current Visit: Yes Status: Acute Patient has AV fistula in her arm initiated hemodialysis yesterday Renal following, medical management --Malignant hypertension Current Visit: Yes Status: Acute Resume home antihypertensives, as needed hydralazine Closely monitor and optimize control --Hypokalemia; Current Visit: Yes Status: Acute Management per nephrology Will replenish if patient is not going for dialysis --Full CODE STATUS -- DVT prophylaxis Current Visit: Yes Status: Acute Subcu heparin renal dose --Advance care planning Current Visit: Yes Status: Acute Disposition; follow nephrology and cardiology recommendations, discharge when stable Discussed with the patient. History Interval history: Patient is asymptomatic without chest pain or dyspnea. Awaiting PCI on Wednesday. BP is elevated and increase Coreg dose. She has no complaints. Hospitalist Physical - Constitutional Vitals: Temp Pulse Resp BP Pulse Ox 98.8 F 75 16 143/53 98 08/23/21 16:15 08/23/21 16:15 08/23/21 16:15 08/23/21 16:15 08/23/21 16:15 General appearance: Present: no acute distress, well-nourished - EENT Eyes: Present: PERRL, EOM intact ENT: clear oral mucosa - Neck Neck: Present: supple - Respiratory Respiratory effort: normal Respiratory: bilateral: CTA - Cardiovascular Rhythm: regular - Extremities Extremities: No edema - Abdominal General gastrointestinal: soft, non-tender, non-distended - Integumentary Integumentary: Absent: rash - Psychiatric Psychiatric: appropriate mood/affect - Neurologic Neurologic: no focal deficits, moves all extremities HEART Score - HEART Score Age: > 65 Troponin: Troponin T 0.098 ng/mL (0.00-0.029) H 08/16/21 04:14 Troponin: 1-3x normal limit - Critical Actions Critical Actions: 0-3 pts:0.9-1.7%risk of adverse cardiac event.Candidate for discharge Results - Labs CBC & Chem 7: 08/23/21 06:35 08/23/21 06:35 Labs: Laboratory Last Values WBC 4.4 K/mm3 (4.5-11.0) L 08/23/21 06:35 RBC 2.76 M/mm3 (3.65-5.03) L 08/23/21 06:35 Hgb 8.5 gm/dl (10.1-14.3) L 08/23/21 06:35 Hct 24.9 % (30.3-42.9) L 08/23/21 06:35 MCV 90 fl (79-97) 08/23/21 06:35 MCH 31 pg (28-32) 08/23/21 06:35 MCHC 34 % (30-34) 08/23/21 06:35 RDW 15.9 % (13.2-15.2) H 08/23/21 06:35 Plt Count 284 K/mm3 (140-440) 08/23/21 06:35 Lymph % (Auto) 39.1 % (13.4-35.0) H 08/17/21 04:54 [place] % (Auto) [employer] 08/23/21 06:35 Eos % (Auto) 4.5 % (0.0-4.3) H 08/17/21 04:54 Baso % (Auto) 0.6 % (0.0-1.8) 08/17/21 04:54 Lymph # (Auto) 1.9 K/mm3 (1.2-5.4) 08/17/21 04:54 [place] # (Auto) 0.6 K/mm3 (0.0-0.8) 08/17/21 04:54 Eos # (Auto) 0.2 K/mm3 (0.0-0.4) 08/17/21 04:54 Baso # (Auto) 0.0 K/mm3 (0.0-0.1) 08/17/21 04:54 Add Manual Diff Complete 08/23/21 06:35 Total Counted 100 08/23/21 06:35 Seg Neutrophils % 43.7 % (40.0-70.0) 08/17/21 04:54 Seg Neuts % (Manual) 58.0 % (40.0-70.0) 08/23/21 06:35 Band Neutrophils % 0 % 08/23/21 06:35 Lymphocytes % (Manual) 20.0 % (13.4-35.0) 08/23/21 06:35 Reactive Lymphs % (Man) 0 % 08/23/21 06:35 Monocytes % (Manual) 19.0 % (0.0-7.3) H 08/23/21 06:35 Eosinophils % (Manual) 3.0 % (0.0-4.3) 08/23/21 06:35 Basophils % (Manual) 0 % (0.0-1.8) 08/23/21 06:35 Metamyelocytes % 0 % 08/23/21 06:35 Myelocytes % 0 % 08/23/21 06:35 Promyelocytes % 0 % 08/23/21 06:35 Blast Cells % 0 % 08/23/21 06:35 Nucleated RBC % Not Reportable 08/23/21 06:35 Seg Neutrophils # 2.1 K/mm3 (1.8-7.7) 08/17/21 04:54 Seg Neutrophils # Man 2.6 K/mm3 (1.8-7.7) 08/23/21 06:35 Band Neutrophils # 0.0 K/mm3 08/23/21 06:35 Lymphocytes # (Manual) 0.9 K/mm3 (1.2-5.4) L 08/23/21 06:35 Abs React Lymphs (Man) 0.0 K/mm3 08/23/21 06:35 Monocytes # (Manual) 0.8 K/mm3 (0.0-0.8) 08/23/21 06:35 Eosinophils # (Manual) 0.1 K/mm3 (0.0-0.4) 08/23/21 06:35 Basophils # (Manual) 0.0 K/mm3 (0.0-0.1) 08/23/21 06:35 Metamyelocytes # 0.0 K/mm3 08/23/21 06:35 Myelocytes # 0.0 K/mm3 08/23/21 06:35 Promyelocytes # 0.0 K/mm3 08/23/21 06:35 Blast Cells # 0.0 K/mm3 08/23/21 06:35 WBC Morphology Not Reportable 08/23/21 06:35 Hypersegmented Neuts Not Reportable 08/23/21 06:35 Hyposegmented Neuts Not Reportable 08/23/21 06:35 Hypogranular Neuts Not Reportable 08/23/21 06:35 Smudge Cells Not Reportable 08/23/21 06:35 Toxic Granulation Not Reportable 08/23/21 06:35 Toxic Vacuolation Not Reportable 08/23/21 06:35 Dohle Bodies Not Reportable 08/23/21 06:35 Pelger-Huet Anomaly Not Reportable 08/23/21 06:35 Leila Rods Not Reportable 08/23/21 06:35 Platelet Estimate Consistent w auto 08/23/21 06:35 Clumped Platelets Not Reportable 08/23/21 06:35 Plt Clumps, EDTA Not Reportable 08/23/21 06:35 Large Platelets Not Reportable 08/23/21 06:35 Giant Platelets Not Reportable 08/23/21 06:35 Platelet Satelliting Not Reportable 08/23/21 06:35 Plt Morphology Comment Not Reportable 08/23/21 06:35 RBC Morphology Not Reportable 08/23/21 06:35 Dimorphic RBCs Not Reportable 08/23/21 06:35 Polychromasia Not Reportable 08/23/21 06:35 Hypochromasia Not Reportable 08/23/21 06:35 Poikilocytosis Not Reportable 08/23/21 06:35 Anisocytosis Not Reportable 08/23/21 06:35 Microcytosis Not Reportable 08/23/21 06:35 Macrocytosis Not Reportable 08/23/21 06:35 Spherocytes Not Reportable 08/23/21 06:35 Pappenheimer Bodies Not Reportable 08/23/21 06:35 Sickle Cells Not Reportable 08/23/21 06:35 Target Cells Few 08/23/21 06:35 Tear Drop Cells Not Reportable 08/23/21 06:35 Ovalocytes Not Reportable 08/23/21 06:35 Helmet Cells Not Reportable 08/23/21 06:35 [place] Bodies Not Reportable 08/23/21 06:35 [place] Rings Not Reportable 08/23/21 06:35 [place] Cells Not Reportable 08/23/21 06:35 Bite Cells Not Reportable 08/23/21 06:35 Crenated Cell Not Reportable 08/23/21 06:35 Elliptocytes Few 08/23/21 06:35 Acanthocytes (Spur) Not Reportable 08/23/21 06:35 Rouleaux Not Reportable 08/23/21 06:35 Hemoglobin C Crystals Not Reportable 08/23/21 06:35 Schistocytes Not Reportable 08/23/21 06:35 Malaria parasites Not Reportable 08/23/21 06:35 [place] Bodies Not Reportable 08/23/21 06:35 Hem Pathologist Commnt No 08/23/21 06:35 PT 13.7 Sec. (12.2-14.9) 08/22/21 03:57 INR 0.95 (0.87-1.13) 08/22/21 03:57 Sodium 136 mmol/L (137-145) L 08/23/21 06:35 Potassium 4.0 mmol/L (3.6-5.0) 08/23/21 06:35 Chloride 97.3 mmol/L (98-107) L 08/23/21 06:35 Carbon Dioxide 23 mmol/L (22-30) 08/23/21 06:35 Anion Gap 20 mmol/L 08/23/21 06:35 BUN 46 mg/dL (7-17) H 08/23/21 06:35 Creatinine 7.8 mg/dL (0.6-1.2) H 08/23/21 06:35 Estimated GFR 6 ml/min 08/23/21 06:35 BUN/Creatinine Ratio 6 % 08/23/21 06:35 Glucose 93 mg/dL (65-100) 08/23/21 06:35 POC Glucose 154 mg/dL (70-105) H 08/23/21 16:12 Calcium 8.6 mg/dL (8.4-10.2) 08/23/21 06:35 Total Bilirubin 0.30 mg/dL (0.1-1.2) 08/15/21 20:18 AST 26 units/L (5-40) 08/15/21 20:18 ALT 51 units/L (7-56) 08/15/21 20:18 Alkaline Phosphatase 67 units/L (35-129) 08/15/21 20:18 Troponin T 0.098 ng/mL (0.00-0.029) H 08/16/21 04:14 Total Protein 6.5 g/dL (6.3-8.2) 08/15/21 20:18 Albumin 3.7 g/dL (3.9-5) L 08/15/21 20:18 Albumin/Globulin Ratio 1.3 % 08/15/21 20:18 Triglycerides 192 mg/dL (2-149) H 08/15/21 15:59 Cholesterol 245 mg/dL (50-199) H 08/15/21 15:59 LDL Cholesterol Direct 144 mg/dL (50-130) H 08/15/21 15:59 HDL Cholesterol 58 mg/dL (40-59) 08/15/21 15:59 Cholesterol/HDL Ratio 4.22 % 08/15/21 15:59 TSH 0.827 mlU/mL (0.270-4.200) 08/16/21 17:13 SARS-CoV-2 (PCR) Negative (Negative) 08/21/21 10:07 Hep Bs Antigen Non-reactive (Negative) 08/20/21 05:04 Hep B Core IgM Ab Non-reactive (NonReactive) 08/20/21 05:04 Hepatitis C Antibody Non-reactive (NonReactive) 08/20/21 05:04 Blood Type B POSITIVE 08/19/21 10:43 Antibody Screen Negative 08/19/21 10:43 Garrett/IV: Voiding Method Toilet Active Medications - Current Medications Current Medications: Generic Name Dose Route Start Last Admin Trade Name Freq PRN Reason Stop Dose Admin Acetaminophen 650 mg 08/15/21 19:52 Acetaminophen 325 Mg Tab PO Q4H PRN Fever >100.5/ALVAREZ Hydrocodone Bitart/Acetaminophen 1 each 08/20/21 11:30 08/22/21 01:07 Hydrocodone/Acetaminophen 5-325 Mg Tab PO 1 each Q4H PRN Administration Pain, Moderate (4-6) Aspirin 81 mg 08/15/21 21:00 08/23/21 09:47 Aspirin 81 Mg Tab Chew PO 81 mg QDAY WILLIE Administration Atorvastatin Calcium 40 mg 08/20/21 22:00 08/22/21 21:28 Atorvastatin 40 Mg Tab PO 40 mg QHS WILLIE Administration Benzonatate 100 mg 08/16/21 16:32 08/20/21 21:53 Benzonatate 100 Mg Cap PO 100 mg Q8HR PRN Administration cough Calcitriol 0.5 mcg 08/17/21 10:00 08/23/21 09:47 Calcitriol 0.5 Mcg Cap PO 0.5 mcg QDAY WILLIE Administration Carvedilol 6.25 mg 08/16/21 18:00 08/23/21 09:47 Carvedilol 6.25 Mg Tab PO 6.25 mg BID WILLIE Administration Clopidogrel Bisulfate 75 mg 08/15/21 20:00 08/23/21 09:47 Clopidogrel 75 Mg Tab PO 75 mg QDAY [facility] Administration Epoetin Chan-epbx 20,000 unit 08/20/21 22:00 Epoetin Chan-Epbx 20,000 Unit/1 Ml Vial SUB-Q ARIELA [facility] Furosemide 80 mg 08/21/21 10:00 08/23/21 09:47 Furosemide 40 Mg Tab PO 80 mg QDAY [facility] Administration Heparin Sodium (Porcine) 5,000 unit 08/15/21 22:00 08/23/21 09:48 Heparin 5,000 Unit/1 Ml Vial SUB-Q Not Given Q12HR [facility] Hydralazine HCl 20 mg 08/16/21 07:31 08/17/21 04:34 Hydralazine 20 Mg/1 Ml Inj IV 20 mg Q4HR PRN Administration Hypertension Hydralazine HCl 50 mg 08/20/21 22:30 08/23/21 14:10 Hydralazine 25 Mg Tab PO 50 mg TID [facility] Administration Sodium Chloride 100 mls @ 999 mls/hr 08/19/21 19:47 Nacl 0.9% IV ARIELA PRN Hypotension Metoclopramide HCl 10 mg 08/15/21 19:53 Metoclopramide 10 Mg/2 Ml Inj IV Q6H PRN Nausea And Vomiting Ondansetron HCl 4 mg 08/15/21 19:52 Ondansetron 4 Mg/2 Ml Inj IV Q8H PRN Nausea And Vomiting Pantoprazole Sodium 40 mg 08/15/21 20:00 08/23/21 09:47 Pantoprazole 40 Mg Tab PO 40 mg QDAY WILLIE Administration Sodium Chloride 10 ml 08/15/21 22:00 08/23/21 09:47 Sodium Chloride 0.9% 10 Ml Flush Syringe IV 10 ml BID WILLIE Administration Sodium Chloride 10 ml 08/15/21 19:52 Sodium Chloride 0.9% 10 Ml Flush Syringe IV PRN PRN LINE FLUSH Tramadol HCl 50 mg 08/20/21 11:30 Tramadol 50 Mg Tab PO Q4H PRN Pain, Mild (1-3) Nutrition/Malnutrition Assess - Dietary Evaluation Nutrition/Malnutrition Findings: Nutrition Notes Start: 08/22/21 11:30 Freq: Status: Active Protocol: Document 08/22/21 11:30 CELESTINO (Rec: 08/22/21 11:34 CELESTINO [id number]) Nutrition Notes Need for Assessment generated from: LOS Initial or Follow up Brief Note Current Diet Cardiac Height 5 ft 4 in Weight 75.6 kg Evans Body Weight (kg) 54.54 BMI 28.5 Weight Status Overweight Subjective/Other Information Pt screened for LOS. No PO intakes documented since admission. Pt says she eats at least 50% of meals. Burn Absent Trauma Absent Current % PO Fair (50-74%) Minimum of two criteria No Is patient on ventilator? No Is Patient Ambulatory and/or Out of Bed Yes REE-([facility]-ambulatory/OOB) [ [id number] [id number]] Calculation Used for Recommendations [facility] Additional Notes Pro needs >1.2g/kg: >91g/day Fluid needs 1-1.5L/day Nutrition Intervention Follow-Up By: 08/27/21 Additional Comments F/U: intakes
[2021-08-24] MEDS ORDERED: carvediloL 6.25 MG TAB PO SCH (04:12)
[2021-08-24 07:47] LABS: Hematocrit 24.4 % (30.3-42.9); Hemoglobin 8.3 gm/dl (10.1-14.3); Mean Corpuscular HGB Conc 34 % (30-34); Mean Corpuscular Volume 90 fl (79-97); Platelet Count 282 K/mm3 (140-440); Red Cell Distribution Width 15.6 % (13.2-15.2)
[2021-08-24 08:32] LABS: Calcium 8.7 mg/dL (8.4-10.2)
--- NOTE | 2021-08-24 09:57 | Progress Note ---
Assessment and Plan Assessment and plan #End-stage kidney disease: has been accepted at [facility] facility dialysis q MWF ok to dc from renal standpoint Monitor dialysis related labs/monitor for any access issues Fluid restriction 1200 cc/day high-protein diet #Coronary artery disease, status postcardiac catheterization pending a stent placement, in AM, if stable after that patient can be discharged, #Access: Needs to be monitored during dialysis, currently no issues reported #Hypertension and volume: , We will continue to work on her blood pressure medication she has been initiated on ARB already, continue to ultrafiltrate #Anemia in end-stage kidney disease: To monitor and follow erythropoietin periodically goal hemoglobin between 02-03-04/27 #Bone mineral disorder and secondary hyperparathyroidism Periodically check labs, #Dietary counseling and education was done for end-stage kidney disease, lifestyle changes were discussed avoidance of processed food incorporating high- protein diet, #Dialysis related labs: Reviewed will order periodically and follow Subjective Date of service: 08/24/21 Principal diagnosis: Syncope Interval history: resting in bed today, no acute issues noted Vitals: Reviewed HEENT: No pallor or icterus oral mucosa moist Neck: Supple no JVD no thyromegaly Chest: Bilateral clear to auscultation anteriorly Heart: Regular rate and rhythm S1-S2 heard no S3-S4 Abdomen: Soft nontender no voluntary guarding rigidity rebound Extremity: Dry skin less than 1+ peripheral edema AVF ok Psychiatric: No evidence of agitation and aggression noted Dermatology: No petechial rashes Labs and x-rays: Reviewed from today Objective - Vital Signs Vital signs: Vital Signs - 12hr 08/23/21 08/23/21 08/23/21 22:00 23:04 23:23 Temperature 98.7 F Pulse Rate 80 77 78 Respiratory 16 Rate Blood Pressure 174/62 175/74 O2 Sat by Pulse 98 99 Oximetry 08/23/21 08/24/21 08/24/21 23:26 04:03 07:20 Temperature 98.7 F 98.6 F Pulse Rate 78 70 71 Respiratory 12 16 Rate Blood Pressure 175/74 161/60 199/75 O2 Sat by Pulse 100 97 Oximetry - Lab 08/24/21 06:30 08/24/21 06:30 Most recent lab results Calcium 8.7 mg/dL (8.4-10.2) 08/24/21 06:30 Medications & Allergies - Medications Allergies/Adverse Reactions: Allergies No Known Allergies Allergy (Verified 08/20/21 08:45) Home Medications: Home Medications Medication Instructions Recorded Confirmed Last Taken Type Aspirin [Aspirin BABY CHEW TAB] 81 mg PO QDAY 11/01/20 08/20/21 11/13/20 05:00 History Clopidogrel [Plavix] 75 mg PO QDAY 11/01/20 08/20/21 11/13/20 05:00 History carvediloL [Coreg] 25 mg PO BID 11/01/20 08/20/21 11/13/20 05:00 History cloNIDine [Catapres] 0.1 mg PO QHS 11/01/20 08/20/21 11/12/20 09:00 History Cholecalciferol (Vitamin D3) 2,000 unit PO QDAY 08/20/21 08/20/21 Unknown History [Vitamin D3 2,000 UNIT CAP] Famotidine [Pepcid] 20 mg PO QDAY 08/20/21 08/20/21 Unknown History Ferrous Sulfate [Iron 325 MG] 325 mg PO QDAY 08/20/21 08/20/21 Unknown History NIFEdipine [Adalat cc] 30 mg PO QDAY 08/20/21 08/20/21 Unknown History calcitrioL [Rocaltrol] 0.5 mcg PO 3XW 08/20/21 08/20/21 Unknown History Active Medications: Generic Name Dose Route Start Last Admin Trade Name Freq PRN Reason Stop Dose Admin Acetaminophen 650 mg 08/15/21 19:52 Acetaminophen 325 Mg Tab PO Q4H PRN Fever >100.5/ALVAREZ Hydrocodone Bitart/Acetaminophen 1 each 08/20/21 11:30 08/22/21 01:07 Hydrocodone/Acetaminophen 5-325 Mg Tab PO 1 each Q4H PRN Administration Pain, Moderate (4-6) Aspirin 81 mg 08/15/21 21:00 08/23/21 09:47 Aspirin 81 Mg Tab Chew PO 81 mg QDAY WILLIE Administration Atorvastatin Calcium 40 mg 08/20/21 22:00 08/23/21 23:25 Atorvastatin 40 Mg Tab PO 40 mg QHS WILLIE Administration Benzonatate 100 mg 08/16/21 16:32 08/20/21 21:53 Benzonatate 100 Mg Cap PO 100 mg Q8HR PRN Administration cough Calcitriol 0.5 mcg 08/17/21 10:00 08/23/21 09:47 Calcitriol 0.5 Mcg Cap PO 0.5 mcg QDAY WILLIE Administration Carvedilol 12.5 mg 08/24/21 10:00 Carvedilol 12.5 Mg Tab PO BID [facility] Clopidogrel Bisulfate 75 mg 08/15/21 20:00 08/23/21 09:47 Clopidogrel 75 Mg Tab PO 75 mg QDAY WILLIE Administration Epoetin Chan-epbx 20,000 unit 08/20/21 22:00 Epoetin Chan-Epbx 20,000 Unit/1 Ml Vial SUB-Q ARIELA WILLIE Furosemide 80 mg 08/21/21 10:00 08/23/21 09:47 Furosemide 40 Mg Tab PO 80 mg QDAY [facility] Administration Heparin Sodium (Porcine) 5,000 unit 08/15/21 22:00 08/23/21 23:26 Heparin 5,000 Unit/1 Ml Vial SUB-Q 5,000 unit Q12HR WILLIE Administration Hydralazine HCl 20 mg 08/16/21 07:31 08/17/21 04:34 Hydralazine 20 Mg/1 Ml Inj IV 20 mg Q4HR PRN Administration Hypertension Hydralazine HCl 50 mg 08/20/21 22:30 08/23/21 23:26 Hydralazine 25 Mg Tab PO 50 mg TID [facility] Administration Sodium Chloride 100 mls @ 999 mls/hr 08/19/21 19:47 Nacl 0.9% IV ARIELA PRN Hypotension Metoclopramide HCl 10 mg 08/15/21 19:53 Metoclopramide 10 Mg/2 Ml Inj IV Q6H PRN Nausea And Vomiting Ondansetron HCl 4 mg 08/15/21 19:52 Ondansetron 4 Mg/2 Ml Inj IV Q8H PRN Nausea And Vomiting Pantoprazole Sodium 40 mg 08/15/21 20:00 08/23/21 09:47 Pantoprazole 40 Mg Tab PO 40 mg QDAY WILLIE Administration Sodium Chloride 10 ml 08/15/21 22:00 08/23/21 23:26 Sodium Chloride 0.9% 10 Ml Flush Syringe IV 10 ml BID WILLIE Administration Sodium Chloride 10 ml 08/15/21 19:52 Sodium Chloride 0.9% 10 Ml Flush Syringe IV PRN PRN LINE FLUSH Tramadol HCl 50 mg 08/20/21 11:30 Tramadol 50 Mg Tab PO Q4H PRN Pain, Mild (1-3)
[2021-08-24] MEDS: PANTOPRAZOLE 40 MG TAB PO SCH (10:13)
[2021-08-24] MEDS: CLOPIDOGREL 75 MG TAB PO SCH (10:13)
[2021-08-24] MEDS: CALCITRIOL 0.5 MCG CAP PO SCH (10:13)
[2021-08-24] MEDS: ASPIRIN 81 MG TAB CHEW PO SCH (10:13)
[2021-08-24] MEDS: carvediloL 12.5 MG TAB PO SCH ×2 (10:13→22:08)
[2021-08-24] MEDS: FUROSEMIDE 40 MG TAB PO SCH (10:13)
--- NOTE | 2021-08-24 10:13 | Progress Note ---
Assessment and Plan Patient is a 66-year-old female with a history of CKD and HTN who presented with complaints syncope Syncope/vasovagal Sinus bradycardia Anemia Elevated cardiac troponins/Type II CKD/AV fistula 11/13 Hypertension Echocardiogram 08/15: Normal LV systolic function, EF 50 to 55%, mild left ventricular hypertrophy, severe LAE Lexiscan MPI stress test 08/18/2021-abnormal study with scintigraphic evidence of ischemia in inferolateral area Plan: Continue current meds. Patient is chest pain-free overnight. Elective PCI of RCA Wednesday morning. Subjective Principal diagnosis: Syncope Interval history: No issues overnight. PCI was canceled yesterday due to emergency. Objective Vital Signs Temp Pulse Resp BP Pulse Ox 08/24/21 07:20 98.6 F 71 16 199/75 97 08/24/21 04:03 98.7 F 70 12 161/60 100 08/23/21 23:26 78 175/74 08/23/21 23:23 78 175/74 08/23/21 23:04 98.7 F 77 16 174/62 99 08/23/21 22:00 80 98 08/23/21 20:49 98.5 F 78 12 175/74 98 08/23/21 16:15 98.8 F 75 16 143/53 98 08/23/21 11:24 98.6 F 78 16 153/62 98 - Physical Examination General: Appears Well HEENT: Positive: EOMI, Normocephaly Neck: Positive: neck supple, trachea midline. Negative: JVD/HJR Neuro: Positive: Grossly Intact Abdomen: Positive: Soft. Negative: Tender Skin: Negative: Rash Musculoskeletal: No Pain Extremities: Present: lower extr. pulses. Absent: edema - Labs and Meds CBC 08/24/21 Range/Units 06:30 WBC 5.0 (4.5-11.0) K/mm3 RBC 2.70 L (3.65-5.03) M/mm3 Hgb 8.3 L (10.1-14.3) gm/dl Hct 24.4 L (30.3-42.9) % Plt Count 282 (140-440) K/mm3 Comprehensive Metabolic Panel 08/24/21 Range/Units 06:30 Sodium 138 (137-145) mmol/L Potassium 3.9 (3.6-5.0) mmol/L Chloride 99.8 (98-107) mmol/L Carbon Dioxide 20 L (22-30) mmol/L BUN 55 H (7-17) mg/dL Creatinine 9.2 H (0.6-1.2) mg/dL Glucose 95 (65-100) mg/dL Calcium 8.7 (8.4-10.2) mg/dL - Imaging and Cardiology EKG: report reviewed, image reviewed Echo: report reviewed - EKG Sinus rhythms and dysrhythmias: sinus rhythm
[2021-08-24] MEDS: hydrALAZINE 25 MG TAB PO SCH (10:14)
[2021-08-24 11:02] LABS: Basophils % (Manual) 0 % (0.0-1.8); Total Cells Counted 100
[2021-08-24 11:03] LABS: Target Cells Few; Tear Drop Cells Few
[2021-08-24 11:04] LABS: Platelet Estimate Consistent w Auto
[2021-08-24] MEDS: hydrALAZINE 100 MG TAB PO SCH ×2 (13:20→22:08)
--- NOTE | 2021-08-24 16:36 | Progress Note ---
Assessment and Plan --Non-ST elevation [place] with CAD Current Visit: Yes Status: Acute s/p left heart catheterization but plan for PCI on Wednesday cont to follow clinically with aspirin, statin -- Syncope/autonomic dysfunction Current Visit: Yes Status: Acute Probably due to bradycardia Fall precautions, syncope work-up CT head without contrast no acute abnormality Follow cardiology evaluation recommendations -- Symptomatic bradycardia/ resolved Current Visit: Yes Status: Acute Symptoms resolved, Heart rate in 70s Patient's beta-blockers and clonidine held Patient had stress test which is abnormal s/p left heart catheterization need PCI - planned for Wednesday --Chronic kidney disease; stage V now progressed to ESRD Current Visit: Yes Status: Acute Patient has AV fistula in her arm initiated hemodialysis Renal following, medical management --Malignant hypertension Current Visit: Yes Status: Acute Resume home antihypertensives, as needed hydralazine Closely monitor --Hypokalemia; Current Visit: Yes Status: Acute Management per nephrology Will replenish if patient is not going for dialysis --Full CODE STATUS -- DVT prophylaxis Current Visit: Yes Status: Acute Subcu heparin renal dose --Advance care planning Current Visit: Yes Status: Acute Brief history; 66-year-old chronic kidney disease AV fistula in place Never initiated hemodialysis, admitted with shortness of breath and symptomatic bradycardia Cardiology evaluated, stress test was abnormal, s/p heart cath and initiated HD on 08/20 planned for PCI on Wednesday Disposition; follow nephrology and cardiology recommendations, discharge when cleared by cardiology. need outpt HD setup Subjective Date of service: 08/24/21 Principal diagnosis: Syncope Interval history: Patient seen and examined, denies any chest pain, vitals stable planned for PCI tomorrow Objective - Exam Narrative Exam: General appearance: Present: no acute distress, well-nourished - EENT Eyes: Present: PERRL, EOM intact ENT: clear oral mucosa - Neck Neck: Present: supple - Respiratory Respiratory effort: normal Respiratory: bilateral: CTA - Cardiovascular Rhythm: regular - Extremities Extremities: No edema - Abdominal General gastrointestinal: soft, non-tender, non-distended - Integumentary Integumentary: Absent: rash - Psychiatric Psychiatric: appropriate mood/affect - Neurologic Neurologic: no focal deficits, moves all extremities - Constitutional Vitals: Vital Signs - 12hr 08/24/21 08/24/21 08/24/21 07:20 10:00 11:22 Temperature 98.6 F 98.5 F Pulse Rate 71 76 72 Respiratory 16 16 Rate Blood Pressure 199/75 191/76 O2 Sat by Pulse 97 98 98 Oximetry 08/24/21 16:26 Temperature 99.1 F Pulse Rate 71 Respiratory 18 Rate Blood Pressure 183/75 O2 Sat by Pulse 98 Oximetry - Labs CBC & Chem 7: 08/25/21 03:54 08/25/21 03:54 Labs: Abnormal lab results 08/23/21 08/23/21 08/24/21 Range/Units 16:12 20:47 06:30 RBC 2.70 L (3.65-5.03) M/mm3 Hgb 8.3 L (10.1-14.3) gm/dl Hct 24.4 L (30.3-42.9) % RDW 15.6 H (13.2-15.2) % Monocytes % (Manual) 22.0 H (0.0-7.3) % Monocytes # (Manual) 1.1 H (0.0-0.8) K/mm3 Carbon Dioxide (22-30) mmol/L BUN (7-17) mg/dL Creatinine (0.6-1.2) mg/dL POC Glucose 154 H 147 H (70-105) mg/dL 08/24/21 08/24/21 Range/Units 06:30 11:19 RBC (3.65-5.03) M/mm3 Hgb (10.1-14.3) gm/dl Hct (30.3-42.9) % RDW (13.2-15.2) % Monocytes % (Manual) (0.0-7.3) % Monocytes # (Manual) (0.0-0.8) K/mm3 Carbon Dioxide 20 L (22-30) mmol/L BUN 55 H (7-17) mg/dL Creatinine 9.2 H (0.6-1.2) mg/dL POC Glucose 202 H (70-105) mg/dL HEART Score - HEART Score Age: > 65 Troponin: Troponin T 0.098 ng/mL (0.00-0.029) H 08/16/21 04:14 Troponin: 1-3x normal limit - Critical Actions Critical Actions: 0-3 pts:0.9-1.7%risk of adverse cardiac event.Candidate for discharge
[2021-08-24] MEDS: amLODIPine 10 MG TAB PO SCH (18:42)
[2021-08-24] MEDS: HEPARIN 5,000 UNIT/1 ML VIAL SUB-Q SCH ×2 (18:42→22:08)
[2021-08-25 04:27] LABS: Hematocrit 23.9 % (30.3-42.9); Hemoglobin 8.1 gm/dl (10.1-14.3); Mean Corpuscular HGB Conc 34 % (30-34); Mean Corpuscular Volume 91 fl (79-97); Platelet Count 285 K/mm3 (140-440); Red Blood Count 2.63 M/mm3 (3.65-5.03); Red Cell Distribution Width 15.8 % (13.2-15.2)
[2021-08-25 04:33] LABS: Calcium 8.4 mg/dL (8.4-10.2)
[2021-08-25 04:38] LABS: INR 0.92 (0.87-1.13)
[2021-08-25 05:31] LABS: Total Cells Counted 100
[2021-08-25 05:32] LABS: Anisocytosis 1+; Hypochromasia 2+
[2021-08-25 05:33] LABS: Ovalocytes 1+; Platelet Estimate Consistent w Auto; Target Cells Rare; Tear Drop Cells Few
[2021-08-25] MEDS: hydrALAZINE 20 MG/1 ML INJ IV PRN ×2 (05:48→08:49)
[2021-08-25] MEDS: CLOPIDOGREL 75 MG TAB PO SCH ×2 (07:21→09:54)
[2021-08-25] MEDS: ASPIRIN 81 MG TAB CHEW PO SCH ×2 (07:21→09:53)
[2021-08-25] MEDS ORDERED: VERAPAMIL 5 MG/2 ML INJ ONE (07:58)
[2021-08-25] MEDS ORDERED: LIDOCAINE (1%) 10 MG/1 ML VIAL 20 ML MDV ONE (07:58)
[2021-08-25] MEDS ORDERED: HEPARIN/NS 5000 UNIT/500ML 1,000 ML IR ONE (07:58)
[2021-08-25] MEDS ORDERED: NITROGLYCERIN SYRINGE 3 ML ONE (07:59)
[2021-08-25] MEDS ORDERED: SODIUM CHLORIDE 0.9% 500 ML 500 ML IV SCH (08:00)
[2021-08-25] MEDS ORDERED: fentaNYL 100 MCG/2 ML INJ ONE (08:30)
[2021-08-25] MEDS ORDERED: MIDAZOLAM 2 MG/2 ML INJ ONE (08:30)
[2021-08-25] MEDS: HEPARIN 10,000 UNITS/10 ML VIAL ONE ×2 (08:39→09:57)
[2021-08-25] MEDS ORDERED: hydrALAZINE 20 MG/1 ML INJ ONE (08:47)
[2021-08-25] MEDS ORDERED: HEPARIN/NS 5000 UNIT/500ML 500 ML IR ONE (09:10)
--- NOTE | 2021-08-25 09:13 | Progress Note ---
Assessment and Plan Assessment and plan: --Left heart cath status s/p PCI successful PCI of RCA with 1 GUSTABO with excellent final angiographic result. Patient is placed on dual antiplatelet therapy, supportive care Cardiology following -Non-ST elevation [place] with CAD Current Visit: Yes Status: Acute s/p left heart catheterization s/p PCI of RCA today, continue dual antiplatelet therapy -- Syncope/autonomic dysfunction Current Visit: Yes Status: Acute Probably due to bradycardia Fall precautions, syncope work-up CT head without contrast no acute abnormality Follow cardiology evaluation recommendations -- Symptomatic bradycardia/ resolved Current Visit: Yes Status: Acute Symptoms resolved, Heart rate in 70s Patient's beta-blockers and clonidine held Patient had stress test which is abnormal s/p left heart catheterization need PCI - planned for Wednesday --Chronic kidney disease; stage V now progressed to ESRD Current Visit: Yes Status: Acute Patient has AV fistula in her arm initiated hemodialysis Renal following, medical management --Malignant hypertension Current Visit: Yes Status: Acute Resume home antihypertensives, as needed hydralazine Closely monitor --Hypokalemia; Current Visit: Yes Status: Acute Management per nephrology Will replenish if patient is not going for dialysis --Full CODE STATUS -- DVT prophylaxis Current Visit: Yes Status: Acute Subcu heparin renal dose --Advance care planning Current Visit: Yes Status: Acute Brief history; 66-year-old chronic kidney disease AV fistula in place Never initiated hemodialysis, admitted with shortness of breath and symptomatic bradycardia Cardiology evaluated, stress test was abnormal, s/p heart cath and initiated HD on 08/20 Heart cath s/p elective PCI today Disposition; follow nephrology and cardiology recommendations, discharge when cleared by cardiology. need outpt HD setup History Interval history: I have seen and examined the patient at bedside Patient's chart and medications reviewed Patient feels slightly better Patient underwent abnormal cath, scheduled for PCI today Patient has no new complaints Vital signs stable Hospitalist Physical - Constitutional Vitals: Temp Pulse Resp BP Pulse Ox 98.6 F 70 16 171/70 97 08/25/21 04:07 08/25/21 04:07 08/25/21 04:07 08/25/21 04:07 08/25/21 04:07 General appearance: Present: no acute distress, well-nourished - EENT Eyes: Present: PERRL, EOM intact - Neck Neck: Present: supple, normal ROM - Respiratory Respiratory effort: normal Respiratory: bilateral: diminished, negative: rales, rhonchi, wheezing - Cardiovascular Rhythm: regular Heart Sounds: Present: S1 & S2 - Extremities Extremities: no ischemia, No edema - Abdominal General gastrointestinal: soft, non-tender, non-distended, distended - Integumentary Integumentary: Present: clear, warm - Psychiatric Psychiatric: appropriate mood/affect, cooperative - Neurologic Neurologic: CNII-XII intact, moves all extremities HEART Score - HEART Score Age: > 65 Troponin: Troponin T 0.098 ng/mL (0.00-0.029) H 08/16/21 04:14 Troponin: 1-3x normal limit - Critical Actions Critical Actions: 0-3 pts:0.9-1.7%risk of adverse cardiac event.Candidate for discharge Results - Labs CBC & Chem 7: 08/25/21 03:54 08/25/21 03:54 Labs: Laboratory Last Values WBC 4.1 K/mm3 (4.5-11.0) L 08/25/21 03:54 RBC 2.63 M/mm3 (3.65-5.03) L 08/25/21 03:54 Hgb 8.1 gm/dl (10.1-14.3) L 08/25/21 03:54 Hct 23.9 % (30.3-42.9) L 08/25/21 03:54 MCV 91 fl (79-97) 08/25/21 03:54 MCH 31 pg (28-32) 08/25/21 03:54 MCHC 34 % (30-34) 08/25/21 03:54 RDW 15.8 % (13.2-15.2) H 08/25/21 03:54 Plt Count 285 K/mm3 (140-440) 08/25/21 03:54 Lymph % (Auto) 39.1 % (13.4-35.0) H 08/17/21 04:54 Ralls % (Auto) [employer] 08/25/21 03:54 Eos % (Auto) 4.5 % (0.0-4.3) H 08/17/21 04:54 Baso % (Auto) 0.6 % (0.0-1.8) 08/17/21 04:54 Lymph # (Auto) 1.9 K/mm3 (1.2-5.4) 08/17/21 04:54 Ralls # (Auto) 0.6 K/mm3 (0.0-0.8) 08/17/21 04:54 Eos # (Auto) 0.2 K/mm3 (0.0-0.4) 08/17/21 04:54 Baso # (Auto) 0.0 K/mm3 (0.0-0.1) 08/17/21 04:54 Add Manual Diff Complete 08/25/21 03:54 Total Counted 100 08/25/21 03:54 Seg Neutrophils % 43.7 % (40.0-70.0) 08/17/21 04:54 Seg Neuts % (Manual) 48.0 % (40.0-70.0) 08/25/21 03:54 Band Neutrophils % 1.0 % 08/25/21 03:54 Lymphocytes % (Manual) 34.0 % (13.4-35.0) 08/25/21 03:54 Reactive Lymphs % (Man) 0 % 08/25/21 03:54 Monocytes % (Manual) 10.0 % (0.0-7.3) H 08/25/21 03:54 Eosinophils % (Manual) 6.0 % (0.0-4.3) H 08/25/21 03:54 Basophils % (Manual) 1.0 % (0.0-1.8) 08/25/21 03:54 Metamyelocytes % 0 % 08/25/21 03:54 Myelocytes % 0 % 08/25/21 03:54 Promyelocytes % 0 % 08/25/21 03:54 Blast Cells % 0 % 08/25/21 03:54 Nucleated RBC % Not Reportable 08/25/21 03:54 Seg Neutrophils # 2.1 K/mm3 (1.8-7.7) 08/17/21 04:54 Seg Neutrophils # Man 2.0 K/mm3 (1.8-7.7) 08/25/21 03:54 Band Neutrophils # 0.0 K/mm3 08/25/21 03:54 Lymphocytes # (Manual) 1.4 K/mm3 (1.2-5.4) 08/25/21 03:54 Abs React Lymphs (Man) 0.0 K/mm3 08/25/21 03:54 Monocytes # (Manual) 0.4 K/mm3 (0.0-0.8) 08/25/21 03:54 Eosinophils # (Manual) 0.2 K/mm3 (0.0-0.4) 08/25/21 03:54 Basophils # (Manual) 0.0 K/mm3 (0.0-0.1) 08/25/21 03:54 Metamyelocytes # 0.0 K/mm3 08/25/21 03:54 Myelocytes # 0.0 K/mm3 08/25/21 03:54 Promyelocytes # 0.0 K/mm3 08/25/21 03:54 Blast Cells # 0.0 K/mm3 08/25/21 03:54 WBC Morphology Not Reportable 08/25/21 03:54 Hypersegmented Neuts Not Reportable 08/25/21 03:54 Hyposegmented Neuts Not Reportable 08/25/21 03:54 Hypogranular Neuts Not Reportable 08/25/21 03:54 Smudge Cells Not Reportable 08/25/21 03:54 Toxic Granulation Not Reportable 08/25/21 03:54 Toxic Vacuolation Not Reportable 08/25/21 03:54 Dohle Bodies Not Reportable 08/25/21 03:54 Pelger-Huet Anomaly Not Reportable 08/25/21 03:54 Leila Rods Not Reportable 08/25/21 03:54 Platelet Estimate Consistent w auto 08/25/21 03:54 Clumped Platelets Not Reportable 08/25/21 03:54 Plt Clumps, EDTA Not Reportable 08/25/21 03:54 Large Platelets Not Reportable 08/25/21 03:54 Giant Platelets Not Reportable 08/25/21 03:54 Platelet Satelliting Not Reportable 08/25/21 03:54 Plt Morphology Comment Not Reportable 08/25/21 03:54 RBC Morphology Not Reportable 08/25/21 03:54 Dimorphic RBCs Not Reportable 08/25/21 03:54 Polychromasia Not Reportable 08/25/21 03:54 Hypochromasia 2+ 08/25/21 03:54 Poikilocytosis Not Reportable 08/25/21 03:54 Anisocytosis 1+ 08/25/21 03:54 Microcytosis 1+ 08/25/21 03:54 Macrocytosis Not Reportable 08/25/21 03:54 Spherocytes Not Reportable 08/25/21 03:54 Pappenheimer Bodies Not Reportable 08/25/21 03:54 Sickle Cells Not Reportable 08/25/21 03:54 Target Cells Rare 08/25/21 03:54 Tear Drop Cells Few 08/25/21 03:54 Ovalocytes 1+ 08/25/21 03:54 Helmet Cells Not Reportable 08/25/21 03:54 Weber-Swan Bodies Not Reportable 08/25/21 03:54 Graham Rings Not Reportable 08/25/21 03:54 Eli Cells Not Reportable 08/25/21 03:54 Bite Cells Not Reportable 08/25/21 03:54 Crenated Cell Not Reportable 08/25/21 03:54 Elliptocytes Not Reportable 08/25/21 03:54 Acanthocytes (Spur) Not Reportable 08/25/21 03:54 Rouleaux Not Reportable 08/25/21 03:54 Hemoglobin C Crystals Not Reportable 08/25/21 03:54 Schistocytes Not Reportable 08/25/21 03:54 Malaria parasites Not Reportable 08/25/21 03:54 Devante Bodies Not Reportable 08/25/21 03:54 Hem Pathologist Commnt No 08/25/21 03:54 PT 13.4 Sec. (12.2-14.9) 08/25/21 03:54 INR 0.92 (0.87-1.13) 08/25/21 03:54 Sodium 136 mmol/L (137-145) L 08/25/21 03:54 Potassium 3.8 mmol/L (3.6-5.0) 08/25/21 03:54 Chloride 96.8 mmol/L (98-107) L 08/25/21 03:54 Carbon Dioxide 22 mmol/L (22-30) 08/25/21 03:54 Anion Gap 21 mmol/L 08/25/21 03:54 BUN 63 mg/dL (7-17) H 08/25/21 03:54 Creatinine 9.8 mg/dL (0.6-1.2) H 08/25/21 03:54 Estimated GFR 5 ml/min 08/25/21 03:54 BUN/Creatinine Ratio 6 % 08/25/21 03:54 Glucose 179 mg/dL (65-100) H 08/25/21 03:54 POC Glucose 142 mg/dL (70-105) H 08/24/21 20:24 Calcium 8.4 mg/dL (8.4-10.2) 08/25/21 03:54 Total Bilirubin 0.30 mg/dL (0.1-1.2) 08/15/21 20:18 AST 26 units/L (5-40) 08/15/21 20:18 ALT 51 units/L (7-56) 08/15/21 20:18 Alkaline Phosphatase 67 units/L (35-129) 08/15/21 20:18 Troponin T 0.098 ng/mL (0.00-0.029) H 08/16/21 04:14 Total Protein 6.5 g/dL (6.3-8.2) 08/15/21 20:18 Albumin 3.7 g/dL (3.9-5) L 08/15/21 20:18 Albumin/Globulin Ratio 1.3 % 08/15/21 20:18 Triglycerides 192 mg/dL (2-149) H 08/15/21 15:59 Cholesterol 245 mg/dL (50-199) H 08/15/21 15:59 LDL Cholesterol Direct 144 mg/dL (50-130) H 08/15/21 15:59 HDL Cholesterol 58 mg/dL (40-59) 08/15/21 15:59 Cholesterol/HDL Ratio 4.22 % 08/15/21 15:59 TSH 0.827 mlU/mL (0.270-4.200) 08/16/21 17:13 SARS-CoV-2 (PCR) Negative (Negative) 08/21/21 10:07 Hep Bs Antigen Non-reactive (Negative) 08/20/21 05:04 Hep B Core IgM Ab Non-reactive (NonReactive) 08/20/21 05:04 Hepatitis C Antibody Non-reactive (NonReactive) 08/20/21 05:04 Blood Type B POSITIVE 08/19/21 10:43 Antibody Screen Negative 08/19/21 10:43 Garrett/IV: Voiding Method Toilet Active Medications - Current Medications Current Medications: Generic Name Dose Route Start Last Admin Trade Name Freq PRN Reason Stop Dose Admin Acetaminophen 650 mg 08/15/21 19:52 Acetaminophen 325 Mg Tab PO Q4H PRN Fever >100.5/ALVAREZ Hydrocodone Bitart/Acetaminophen 1 each 08/20/21 11:30 08/22/21 01:07 Hydrocodone/Acetaminophen 5-325 Mg Tab PO 1 each Q4H PRN Administration Pain, Moderate (4-6) Amlodipine Besylate 10 mg 08/24/21 16:00 08/24/21 18:42 Amlodipine 10 Mg Tab PO Not Given QDAY WILLIE Aspirin 81 mg 08/15/21 21:00 08/25/21 07:21 Aspirin 81 Mg Tab Chew PO 81 mg QDAY WILLIE Administration Atorvastatin Calcium 40 mg 08/20/21 22:00 08/24/21 22:08 Atorvastatin 40 Mg Tab PO 40 mg QHS ON LICENSE OF [facility] Administration Benzonatate 100 mg 08/16/21 16:32 08/20/21 21:53 Benzonatate 100 Mg Cap PO 100 mg Q8HR PRN Administration cough Calcitriol 0.5 mcg 08/17/21 10:00 08/24/21 10:13 Calcitriol 0.5 Mcg Cap PO 0.5 mcg QDAY ON LICENSE OF [facility] Administration Carvedilol 12.5 mg 08/24/21 10:00 08/24/21 22:08 Carvedilol 12.5 Mg Tab PO 12.5 mg BID WILLIE Administration Clopidogrel Bisulfate 75 mg 08/15/21 20:00 08/25/21 07:21 Clopidogrel 75 Mg Tab PO 75 mg QDAY ON LICENSE OF [facility] Administration Epoetin Chan-epbx 20,000 unit 08/20/21 22:00 Epoetin Chan-Epbx 20,000 Unit/1 Ml Vial SUB-Q ARIELA ON LICENSE OF [facility] Furosemide 80 mg 08/21/21 10:00 08/24/21 10:13 Furosemide 40 Mg Tab PO 80 mg QDAY ON LICENSE OF [facility] Administration Heparin Sodium (Porcine) 5,000 unit 08/15/21 22:00 08/24/21 22:08 Heparin 5,000 Unit/1 Ml Vial SUB-Q 5,000 unit Q12HR WILLIE Administration Hydralazine HCl 20 mg 08/16/21 07:31 08/25/21 08:49 Hydralazine 20 Mg/1 Ml Inj IV 10 mg Q4HR PRN Administration Hypertension Hydralazine HCl 100 mg 08/24/21 14:00 08/24/21 22:08 Hydralazine 100 Mg Tab PO 100 mg TID WILLIE Administration Sodium Chloride 100 mls @ 999 mls/hr 08/19/21 19:47 Nacl 0.9% IV ARIELA PRN Hypotension Sodium Chloride 500 mls @ 50 mls/hr 08/25/21 08:00 Nacl 0.9% 500 Ml IV DIRECT WILLIE Metoclopramide HCl 10 mg 08/15/21 19:53 Metoclopramide 10 Mg/2 Ml Inj IV Q6H PRN Nausea And Vomiting Ondansetron HCl 4 mg 08/15/21 19:52 Ondansetron 4 Mg/2 Ml Inj IV Q8H PRN Nausea And Vomiting Pantoprazole Sodium 40 mg 08/15/21 20:00 08/24/21 10:13 Pantoprazole 40 Mg Tab PO 40 mg QDAY WILLIE Administration Sodium Chloride 10 ml 08/15/21 22:00 08/24/21 22:08 Sodium Chloride 0.9% 10 Ml Flush Syringe IV 10 ml BID WILLIE Administration Sodium Chloride 10 ml 08/15/21 19:52 Sodium Chloride 0.9% 10 Ml Flush Syringe IV PRN PRN LINE FLUSH Tramadol HCl 50 mg 08/20/21 11:30 Tramadol 50 Mg Tab PO Q4H PRN Pain, Mild (1-3) Nutrition/Malnutrition Assess - Dietary Evaluation Nutrition/Malnutrition Findings: Nutrition Notes Start: 08/22/21 11:30 Freq: Status: Active Protocol: Document 08/22/21 11:30 CELESTINO (Rec: 08/22/21 11:34 [facility] [id number]) Nutrition Notes Need for Assessment generated from: LOS Initial or Follow up Brief Note Current Diet Cardiac Height 5 ft 4 in Weight 75.6 kg [place] Body Weight (kg) 54.54 BMI 28.5 Weight Status Overweight Subjective/Other Information Pt screened for LOS. No PO intakes documented since admission. Pt says she eats at least 50% of meals. Burn Absent Trauma Absent Current % PO Fair (50-74%) Minimum of two criteria No Is patient on ventilator? No Is Patient Ambulatory and/or Out of Bed Yes REE-([facility]. Jeor-ambulatory/OOB) [ [id number] [id number]] Calculation Used for Recommendations [facility] Additional Notes Pro needs >1.2g/kg: >91g/day Fluid needs 1-1.5L/day Nutrition Intervention Follow-Up By: 08/27/21 Additional Comments F/U: intakes
[2021-08-25] MEDS: PANTOPRAZOLE 40 MG TAB PO SCH ×2 (09:53→13:36)
[2021-08-25] MEDS: hydrALAZINE 100 MG TAB PO SCH ×3 (09:53→22:56)
[2021-08-25] MEDS: CALCITRIOL 0.5 MCG CAP PO SCH ×2 (09:53→13:36)
[2021-08-25] MEDS: amLODIPine 10 MG TAB PO SCH ×2 (09:53→13:35)
[2021-08-25] MEDS: carvediloL 12.5 MG TAB PO SCH ×3 (09:54→22:55)
[2021-08-25] MEDS: FUROSEMIDE 40 MG TAB PO SCH ×2 (09:54→13:36)
[2021-08-25] MEDS: HEPARIN 5,000 UNIT/1 ML VIAL SUB-Q SCH ×2 (09:54→22:56)
--- NOTE | 2021-08-25 11:13 | Cardiac Catherization Report ---
DATE OF PROCEDURE: 08/25/2021 CARDIAC CATHETERIZATION AND PERCUTANEOUS CORONARY INTERVENTION REFERRING PHYSICIAN: Dr. Madison. INDICATIONS FOR PROCEDURE: The patient is a pleasant 66-year-old -[place] female with symptoms of shortness of breath, recent dialysis, abnormal nuclear stress test, had a cardiac cath last week, found to have eccentric ulcerated mid right coronary stenosis, here for elective RCA PCI. She is loaded with aspirin and Plavix. DESCRIPTION OF PROCEDURE: She was brought to the wheelabrator operator in a postabsorptive state, prepped and draped in sterile fashion. Mehdi's test in right hand is normal. A 2 mL of 2% lidocaine used to anesthetize the right wrist. Heparin given. Abnormal ACT also confirmed. We used multiple guides, very difficult superior takeoff of the right coronary, which is very tortuous. Multiple guides were used. Eventually, an X-RAD guide is used with a Patch Press Operator 50 wire to cross the lesion without difficulty. Direct stented with a 2.75 x 12 Dg drug-eluting stent, 13 SKYE for 20 seconds. Excellent result, well opposed. I do not believe an IVUS catheter could course the tortuosity of this vessel and thus I did not approach it. DAVID 3 flow, no dissection. Initial discrete stenosis was 90%, final stenosis 0%, initially DAVID 2 flow, now DAVID 3 flow. Excellent angiographic result. Mild 25% stenosis proximally. Excellent final angiographic result. No complications. CONCLUSIONS: Successful elective PCI of 90% ulcerated culprit mid right coronary stenosis with placement of a drug-eluting stent (Dg 2.75 x 12) with excellent final angiographic result with 0% residual stenosis and DAVID 3 flow. The patient tolerated the procedure well. I directly supervised administration of moderate sedation with fentanyl and Versed from 8:35 to 9:56 a.m. No immediate complications. Continue dual antiplatelet therapy. The patient received dialysis later today. The patient is clinically stable, chest pain free throughout. TID: [id number] RECEIPT: [id number] [facility]/GROVER/SERGE
[2021-08-25] MEDS ORDERED: traMADol 50 MG TAB PO PRN (12:13)
[2021-08-25] MEDS ORDERED: HYDROcodone/ACETAMINOPHEN 5-325 MG TAB PO PRN (12:13)
[2021-08-25] MEDS: BENZONATATE 100 MG CAP PO PRN (13:37)
--- NOTE | 2021-08-25 13:45 | Progress Note ---
Assessment and Plan Patient is a 66-year-old female with a history of CKD and HTN who presented with complaints syncope Syncope/vasovagal Sinus bradycardia Anemia Elevated cardiac troponins/Type II CKD/AV fistula 11/13 Hypertension Cardiac cath 08/25/2021-successful PCI of RCA with 1 GUSTABO with excellent final angiographic result. Echocardiogram 08/15: Normal LV systolic function, EF 50 to 55%, mild left ventricular hypertrophy, severe LAE Lexiscan MPI stress test 08/18/2021-abnormal study with scintigraphic evidence of ischemia in inferolateral area Plan: Cardiac cath this a.m. Results noted above. Patient currently chest pain free Continue Lipitor 40mg PO QHS Patient is currently on aspirin, Plavix, Coreg 6.25 mg p.o. twice daily, hydralazine 100 mg p.o. 3 times daily Continue to monitor on telemetry. Plan for D/c in AM Plan of care discussed with patient who verbalized understanding and acknowledgment Patient seen in conjunction with Dr. Toussaint who agrees with this plan. - Patient Problems (1) CKD (chronic kidney disease) Current Visit: Yes Status: Acute Qualifiers: Chronic kidney disease stage: stage 5, not on chronic dialysis Qualified Code(s): N18.5 - Chronic kidney disease, stage 5 (2) Elevated troponin Current Visit: Yes Status: Acute (3) Lightheadedness Current Visit: Yes Status: Acute (4) Sinus bradycardia Current Visit: Yes Status: Acute (5) Type 2 myocardial infarction Current Visit: Yes Status: Acute (6) Anemia Current Visit: Yes Status: Chronic Qualifiers: Anemia type: due to chronic kidney disease Chronic kidney disease stage: stage 5, not on chronic dialysis Qualified Code(s): N18.5 - Chronic kidney disease, stage 5; D63.1 - Anemia in chronic kidney disease (7) Hypertension Current Visit: Yes Status: Chronic Qualifiers: Hypertension type: primary hypertension Qualified Code(s): I10 - Essential (primary) hypertension Subjective Date of service: 08/25/21 Principal diagnosis: Syncope Interval history: Patient for cardiac cath this a.m. Sinus 70s on monitor with no events Objective Vital Signs Temp Pulse Resp BP Pulse Ox 08/25/21 04:07 98.6 F 70 16 171/70 97 08/24/21 23:59 98.1 F 75 12 173/69 100 08/24/21 22:00 72 08/24/21 19:14 98.5 F 70 12 163/62 97 08/24/21 19:00 98 08/24/21 16:26 99.1 F 71 18 183/75 98 - Physical Examination General: Appears Well HEENT: Positive: EOMI, Normocephaly Neck: Positive: neck supple, trachea midline. Negative: JVD/HJR Cardiac: Positive: Reg Rate and Rhythm Lungs: Positive: Normal Breath Sounds Neuro: Positive: Grossly Intact Abdomen: Positive: Soft. Negative: Tender Skin: Negative: Rash Musculoskeletal: No Pain Extremities: Present: lower extr. pulses. Absent: edema - Labs and Meds Coagulation 08/25/21 Range/Units 03:54 PT 13.4 (12.2-14.9) Sec. INR 0.92 (0.87-1.13) CBC 08/25/21 Range/Units 03:54 WBC 4.1 L (4.5-11.0) K/mm3 RBC 2.63 L (3.65-5.03) M/mm3 Hgb 8.1 L (10.1-14.3) gm/dl Hct 23.9 L (30.3-42.9) % Plt Count 285 (140-440) K/mm3 Comprehensive Metabolic Panel 08/25/21 Range/Units 03:54 Sodium 136 L (137-145) mmol/L Potassium 3.8 (3.6-5.0) mmol/L Chloride 96.8 L (98-107) mmol/L Carbon Dioxide 22 (22-30) mmol/L BUN 63 H (7-17) mg/dL Creatinine 9.8 H (0.6-1.2) mg/dL Glucose 179 H (65-100) mg/dL Calcium 8.4 (8.4-10.2) mg/dL - Imaging and Cardiology EKG: report reviewed, image reviewed Echo: report reviewed Cardiac cath: report reviewed - Telemetry EKG Rhythm: Sinus Rhythm - EKG Sinus rhythms and dysrhythmias: sinus rhythm
--- NOTE | 2021-08-25 14:21 | Event Note ---
Nephrology continuing to follow patient, not seen today as in procedure. Has HD orders for MWF
[2021-08-25] MEDS: HYDROcodone/ACETAMINOPHEN 5-325 MG TAB PO PRN (22:56)
[2021-08-26 07:48] LABS: Hematocrit 24.9 % (30.3-42.9); Hemoglobin 8.3 gm/dl (10.1-14.3); Mean Corpuscular HGB Conc 33 % (30-34); Mean Corpuscular Volume 91 fl (79-97); Platelet Count 267 K/mm3 (140-440); Red Blood Count 2.74 M/mm3 (3.65-5.03)
[2021-08-26 08:06] LABS: Calcium 8.9 mg/dL (8.4-10.2)
--- NOTE | 2021-08-26 09:09 | Discharge Summary ---
Providers - Providers Date of Admission: 08/15/21 19:52 Date of discharge: 08/26/21 Attending physician: MYRA BENAVIDEZ 08/15/21 20:00 Consult to Physician [CONS] Routine Comment: Consulting Provider: DEEPAK SORENSEN Physician Instructions: Reason For Exam: Symptomatic bradycardia, syncope 08/16/21 07:29 Consult to Physician [CONS] Routine Comment: Consulting Provider: FERNANDEZ HINKLE Physician Instructions: Reason For Exam: CKD 08/19/21 19:46 Consult to Physician [CONS] Routine Comment: Consulting Provider: GREG AGUILA Physician Instructions: Reason For Exam: Evaluate fistula patient will start dialysis in am 08/20/21 11:10 Consult to Cardiac Rehabilitation [CONS] Routine Reason For Exam: Cardiac Rehab Evaluation 08/25/21 12:13 Consult to Cardiac Rehabilitation [CONS] Routine Reason For Exam: Cardiac Rehab Evaluation Primary care physician: SOLE SO Hospitalization Condition: Stable Pertinent studies: Cardiac cath 08/25/2021-successful PCI of RCA with 1 GUSTABO with excellent final angiographic result. Echocardiogram 08/15: Normal LV systolic function, EF 50 to 55%, mild left ventricular hypertrophy, severe LAE Lexiscan MPI stress test 08/18/2021-abnormal study with scintigraphic evidence of ischemia in inferolateral area Procedures: Cardiac cath 08/25/2021-successful PCI of RCA with 1 GUSTABO with excellent final angiographic result. Lexiscan MPI stress test 08/18/2021-abnormal study with scintigraphic evidence of ischemia in inferolateral area Hospital course: --Left heart cath status s/p PCI successful PCI of RCA with 1 GUSTABO with excellent final angiographic result. Patient is placed on dual antiplatelet therapy, supportive care Cardiology following -Myocardial infarction type II Current Visit: Yes Status: Acute s/p left heart catheterization s/p PCI of RCA today, continue dual antiplatelet therapy -- Syncope/autonomic dysfunction Current Visit: Yes Status: Acute Probably due to bradycardia Fall precautions, syncope work-up CT head without contrast no acute abnormality Follow cardiology evaluation recommendations -- Symptomatic bradycardia/ resolved Current Visit: Yes Status: Acute Symptoms resolved, Heart rate in 70s Patient's beta-blockers and clonidine held Patient had stress test which is abnormal s/p left heart catheterization need PCI - planned for Wednesday --Chronic kidney disease; stage V now progressed to ESRD Current Visit: Yes Status: Acute Patient has AV fistula in her arm initiated hemodialysis Renal following, medical management --Malignant hypertension Current Visit: Yes Status: Acute Resume home antihypertensives, as needed hydralazine Closely monitor --Hypokalemia; Current Visit: Yes Status: Acute Management per nephrology Will replenish if patient is not going for dialysis --Full CODE STATUS -- DVT prophylaxis Current Visit: Yes Status: Acute Subcu heparin renal dose --Advance care planning Current Visit: Yes Status: Acute Disposition: 01 HOME / SELF CARE / HOMELESS Final Discharge Diagnosis (Prints w/discharge instructions): Coronary artery disease status post PCI. Non-ST elevation [place] with coronary artery disease. Syncope autonomic dysfunction. Symptomatic bradycardia resolved. Chronic kidney disease stage V now progressed to ESRD. Malignant hypertension. Hypokalemia Time spent for discharge: 40 min Core Measure Documentation - Palliative Care Palliative Care/ Comfort Measures: Not Applicable - Core Measures Any of the following diagnoses?: none Exam - Constitutional Vitals: Temp Pulse Resp BP Pulse Ox 98.3 F 72 18 150/59 97 08/26/21 07:31 08/26/21 07:31 08/25/21 21:30 08/26/21 07:31 08/26/21 07:31 General appearance: Present: no acute distress, well-nourished - EENT Eyes: Present: PERRL, EOM intact - Neck Neck: Present: supple, normal ROM - Respiratory Respiratory effort: normal Respiratory: bilateral: diminished, negative: rales, rhonchi, wheezing - Cardiovascular Rhythm: regular Heart Sounds: Present: S1 & S2 - Extremities Extremities: no ischemia, No edema - Abdominal General gastrointestinal: Present: soft, non-tender, non-distended, normal bowel sounds - Integumentary Integumentary: Present: clear, warm - Musculoskeletal Musculoskeletal: strength equal bilaterally, generalized weakness - Psychiatric Psychiatric: appropriate mood/affect, cooperative - Neurologic Neurologic: moves all extremities Plan Activity: advance as tolerated, fall precautions Diet: renal, other (Cardiac diet) Additional Instructions: Follow nephrology per schedule. Follow hemodialysis per schedule. if you have worsening symptoms contact MD or go to the nearest emergency room as needed. Advised to follow primary care physician and private tunnel miner per schedule. Strongly advised to comply with medications, diet, follow-up visits per schedule Follow up with: RAJAN DONALDSON MD [Staff Physician] - 7 Days SOLE SO MD [Primary Care Provider] - SILKE GARCIA MD [Staff Physician] - 09/10/21 9:00 am Forms: CardCat PCI D/C Instructions Prescriptions: amLODIPine 10 mg PO QDAY #30 tablet hydrALAZINE [Apresoline TAB] 100 mg PO TID #90 tab Aspirin [Aspirin BABY CHEW TAB] 81 mg PO QDAY #30 carvediloL [Coreg] 12.5 mg PO BID #60 tablet Furosemide [Lasix] 20 mg PO QDAY #30 tablet AtorvaSTATin [Lipitor] 40 mg PO QHS #30 tablet
--- NOTE | 2021-08-26 09:56 | Progress Note ---
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 CKD likely due to DM, HTN. Has notable proteinuria - daily labs - renally dose meds - avoid nephrotoxins - renal diet - outpatient HD placement at [facility] noted. AVF working well # Anemia: last hemoglobin 8.3, ESAs with HD prn # HTN: BP reasonable now, note antihypertensives. UF as tolerated with HD # Secondary Hyperparathyroidism: continue home binders as needed, vitamin D analogs prn (placed order for calcitriol) # Syncope: appreciate cardiology input, workup reviewed Subjective Date of service: 08/26/21 Principal diagnosis: Syncope Interval history: No issues noted this AM, denies dyspnea, edema, chest pain. Had HD yesterday, no issues noted. AVF working well. Objective - Exam Narrative Exam: Constitutional: no acute distress Head: NC/AT Neck: supple Lungs: clear to auscultation CV: RRR, no M/R/G Abdomen: soft, non-tender, bowel sounds present Back: nontender Extremities: no edema, pulses WNL. AVF with good thrill, bruit Skin: intact Neuro: no focal deficits, alert and oriented x4 - Vital Signs Vital signs: Vital Signs - 12hr 08/26/21 08/26/21 04:00 07:31 Temperature 99.1 F 98.3 F Pulse Rate 71 72 Blood Pressure 150/59 Blood Pressure 119/48 [Left] O2 Sat by Pulse 97 Oximetry - Lab 08/26/21 07:27 08/26/21 07:27 Most recent lab results Calcium 8.9 mg/dL (8.4-10.2) 08/26/21 07:27 Medications & Allergies - Medications Allergies/Adverse Reactions: Allergies No Known Allergies Allergy (Verified 08/20/21 08:45) Home Medications: Home Medications Medication Instructions Recorded Confirmed Last Taken Type Aspirin [Aspirin BABY CHEW TAB] 81 mg PO QDAY 11/01/20 08/20/21 11/13/20 05:00 History Clopidogrel [Plavix] 75 mg PO QDAY 11/01/20 08/20/21 11/13/20 05:00 History carvediloL [Coreg] 25 mg PO BID 11/01/20 08/20/21 11/13/20 05:00 History cloNIDine [Catapres] 0.1 mg PO QHS 11/01/20 08/20/21 11/12/20 09:00 History Cholecalciferol (Vitamin D3) 2,000 unit PO QDAY 08/20/21 08/20/21 Unknown History [Vitamin D3 2,000 UNIT CAP] Famotidine [Pepcid] 20 mg PO QDAY 08/20/21 08/20/21 Unknown History Ferrous Sulfate [Iron 325 MG] 325 mg PO QDAY 08/20/21 08/20/21 Unknown History NIFEdipine [Adalat cc] 30 mg PO QDAY 08/20/21 08/20/21 Unknown History calcitrioL [Rocaltrol] 0.5 mcg PO 3XW 08/20/21 08/20/21 Unknown History Active Medications: Generic Name Dose Route Start Last Admin Trade Name Freq PRN Reason Stop Dose Admin Acetaminophen 650 mg 08/15/21 19:52 Acetaminophen 325 Mg Tab PO Q4H PRN Fever >100.5/ALVAREZ Hydrocodone Bitart/Acetaminophen 1 each 08/20/21 11:30 08/25/21 22:56 Hydrocodone/Acetaminophen 5-325 Mg Tab PO 1 each Q4H PRN Administration Pain, Moderate (4-6) Amlodipine Besylate 10 mg 08/24/21 16:00 08/25/21 13:35 Amlodipine 10 Mg Tab PO 10 mg QDAY WILLIE Administration Aspirin 81 mg 08/15/21 21:00 08/25/21 09:53 Aspirin 81 Mg Tab Chew PO Not Given QDAY WILLIE Atorvastatin Calcium 40 mg 08/20/21 22:00 08/25/21 22:55 Atorvastatin 40 Mg Tab PO 40 mg QHS WILLIE Administration Benzonatate 100 mg 08/16/21 16:32 08/25/21 13:37 Benzonatate 100 Mg Cap PO 100 mg Q8HR PRN Administration cough Calcitriol 0.5 mcg 08/17/21 10:00 08/25/21 13:36 Calcitriol 0.5 Mcg Cap PO 0.5 mcg QDAY WILLIE Administration Carvedilol 12.5 mg 08/24/21 10:00 08/25/21 22:55 Carvedilol 12.5 Mg Tab PO 12.5 mg BID WILLIE Administration Clopidogrel Bisulfate 75 mg 08/15/21 20:00 08/25/21 09:54 Clopidogrel 75 Mg Tab PO Not Given QDAY WILLIE Epoetin Chan-epbx 20,000 unit 08/20/21 22:00 08/25/21 21:00 Epoetin Chan-Epbx 20,000 Unit/1 Ml Vial SUB-Q 20,000 unit ARIELA WILLIE Administration Furosemide 80 mg 08/21/21 10:00 08/25/21 13:36 Furosemide 40 Mg Tab PO 80 mg QDAY WILLIE Administration Heparin Sodium (Porcine) 5,000 unit 08/15/21 22:00 08/25/21 22:56 Heparin 5,000 Unit/1 Ml Vial SUB-Q 5,000 unit Q12HR WILLIE Administration Hydralazine HCl 20 mg 08/16/21 07:31 08/25/21 08:49 Hydralazine 20 Mg/1 Ml Inj IV 10 mg Q4HR PRN Administration Hypertension Hydralazine HCl 100 mg 08/24/21 14:00 08/25/21 22:56 Hydralazine 100 Mg Tab PO 100 mg TID WILLIE Administration Sodium Chloride 100 mls @ 999 mls/hr 08/19/21 19:47 Nacl 0.9% IV ARIELA PRN Hypotension Sodium Chloride 500 mls @ 50 mls/hr 08/25/21 08:00 Nacl 0.9% 500 Ml IV DIRECT WILLIE Metoclopramide HCl 10 mg 08/15/21 19:53 Metoclopramide 10 Mg/2 Ml Inj IV Q6H PRN Nausea And Vomiting Ondansetron HCl 4 mg 08/15/21 19:52 Ondansetron 4 Mg/2 Ml Inj IV Q8H PRN Nausea And Vomiting Pantoprazole Sodium 40 mg 08/15/21 20:00 08/25/21 13:36 Pantoprazole 40 Mg Tab PO 40 mg QDAY WILLIE Administration Sodium Chloride 10 ml 08/15/21 22:00 08/25/21 22:56 Sodium Chloride 0.9% 10 Ml Flush Syringe IV 10 ml BID WILLIE Administration Sodium Chloride 10 ml 08/15/21 19:52 Sodium Chloride 0.9% 10 Ml Flush Syringe IV PRN PRN LINE FLUSH Tramadol HCl 50 mg 08/20/21 11:30 Tramadol 50 Mg Tab PO Q4H PRN Pain, Mild (1-3)
--- NOTE | 2021-08-26 10:22 | Electrocardiograph Report ---
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
[2021-08-26 10:25] LABS: Basophils % (Manual) 0 % (0.0-1.8); Total Cells Counted 100
[2021-08-26 10:27] LABS: Anisocytosis 1+; Hypochromasia 2+
[2021-08-26 10:28] LABS: Ovalocytes 1+
[2021-08-26 10:29] LABS: Platelet Estimate Consistent w Auto; Target Cells Rare
[2021-08-26 10:30] LABS: Poikilocytosis 1+
[2021-08-26] MEDS: carvediloL 12.5 MG TAB PO SCH (10:39)
[2021-08-26] MEDS: PANTOPRAZOLE 40 MG TAB PO SCH (10:39)
[2021-08-26] MEDS: FUROSEMIDE 40 MG TAB PO SCH (10:39)
[2021-08-26] MEDS: hydrALAZINE 100 MG TAB PO SCH ×2 (10:39→14:05)
[2021-08-26] MEDS: ASPIRIN 81 MG TAB CHEW PO SCH (10:39)
[2021-08-26] MEDS: amLODIPine 10 MG TAB PO SCH (10:39)
[2021-08-26] MEDS: CLOPIDOGREL 75 MG TAB PO SCH (10:39)
[2021-08-26] MEDS: HEPARIN 5,000 UNIT/1 ML VIAL SUB-Q SCH (10:42)
--- NOTE | 2021-08-26 10:56 | Progress Note ---
Assessment and Plan Patient is a 66-year-old female with a history of CKD and HTN who presented with complaints syncope Syncope/vasovagal Sinus bradycardia Anemia Elevated cardiac troponins/Type II CKD/AV fistula 11/13 Hypertension Cardiac cath 08/25/2021-successful PCI of RCA with 1 GUSTABO with excellent final angiographic result. Echocardiogram 08/15: Normal LV systolic function, EF 50 to 55%, mild left ventricular hypertrophy, severe LAE Lexiscan MPI stress test 08/18/2021-abnormal study with scintigraphic evidence of ischemia in inferolateral area Plan: Patient remains chest pain free Continue Lipitor 40mg PO QHS Patient is currently on aspirin, Plavix, Coreg 12.5 mg p.o. twice daily, hydralazine 100 mg p.o. 3 times daily, amlodipine 10 mg p.o. daily Plan of care discussed with patient who verbalized understanding and acknowledgment Cardiac status otherwise stable for discharge Patient has a follow-up appointment with Dr. Tariq, [facility] supply specialist,on 09/10/2021 at 9am in our [place] location. Phone #[phone] Patient seen in conjunction with Dr. Toussaint who agrees with this plan. - Patient Problems (1) CKD (chronic kidney disease) Current Visit: Yes Status: Acute Qualifiers: Chronic kidney disease stage: stage 5, not on chronic dialysis Qualified Code(s): N18.5 - Chronic kidney disease, stage 5 (2) Elevated troponin Current Visit: Yes Status: Acute (3) Lightheadedness Current Visit: Yes Status: Acute (4) Sinus bradycardia Current Visit: Yes Status: Acute (5) Type 2 myocardial infarction Current Visit: Yes Status: Acute (6) Anemia Current Visit: Yes Status: Chronic Qualifiers: Anemia type: due to chronic kidney disease Chronic kidney disease stage: stage 5, not on chronic dialysis Qualified Code(s): N18.5 - Chronic kidney disease, stage 5; D63.1 - Anemia in chronic kidney disease (7) Hypertension Current Visit: Yes Status: Chronic Qualifiers: Hypertension type: primary hypertension Qualified Code(s): I10 - Essential (primary) hypertension Subjective Date of service: 08/26/21 Principal diagnosis: Syncope Interval history: Patient resting in bed in no acute distress. Patient reports feeling well this morning Sinus 70s on monitor with no events Objective Vital Signs Temp Pulse Resp BP BP Pulse Ox Pulse Ox 08/26/21 10:39 76 150/75 08/26/21 07:31 98.3 F 72 150/59 97 08/26/21 04:00 99.1 F 71 119/48 08/25/21 21:30 98.4 F 71 18 178/68 99 08/25/21 21:05 70 128/60 08/25/21 20:45 69 128/60 08/25/21 20:30 68 134/60 08/25/21 20:15 71 122/58 08/25/21 20:00 75 130/60 08/25/21 19:45 73 147/63 08/25/21 19:30 74 152/65 08/25/21 19:15 76 149/66 08/25/21 19:00 73 169/70 98 08/25/21 18:45 73 158/68 08/25/21 18:30 72 168/71 08/25/21 18:15 70 174/70 08/25/21 18:05 72 175/71 08/25/21 18:00 98.5 F 73 18 177/63 99 08/25/21 16:29 98.7 F 75 159/49 98 08/25/21 13:00 98.7 F 80 200/65 98 08/25/21 12:30 98.7 F 76 194/69 99 08/25/21 12:00 98.7 F 83 221/73 100 08/25/21 11:30 98.7 F 79 210/70 100 08/25/21 11:00 97.6 F 79 195/72 100 - Physical Examination General: Appears Well HEENT: Positive: EOMI, Normocephaly Neck: Positive: neck supple, trachea midline. Negative: JVD/HJR Cardiac: Positive: Reg Rate and Rhythm Lungs: Positive: Normal Breath Sounds Neuro: Positive: Grossly Intact Abdomen: Positive: Soft. Negative: Tender Skin: Negative: Rash Musculoskeletal: No Pain Extremities: Present: lower extr. pulses. Absent: edema - Labs and Meds CBC 08/26/21 Range/Units 07:27 WBC 4.6 (4.5-11.0) K/mm3 RBC 2.74 L (3.65-5.03) M/mm3 Hgb 8.3 L (10.1-14.3) gm/dl Hct 24.9 L (30.3-42.9) % Plt Count 267 (140-440) K/mm3 Comprehensive Metabolic Panel 08/26/21 Range/Units 07:27 Sodium 140 (137-145) mmol/L Potassium 3.9 (3.6-5.0) mmol/L Chloride 101.9 (98-107) mmol/L Carbon Dioxide 26 (22-30) mmol/L BUN 24 H (7-17) mg/dL Creatinine 5.4 H (0.6-1.2) mg/dL Glucose 90 (65-100) mg/dL Calcium 8.9 (8.4-10.2) mg/dL - Imaging and Cardiology EKG: report reviewed, image reviewed Echo: report reviewed Cardiac cath: report reviewed - Telemetry EKG Rhythm: Sinus Rhythm - EKG Sinus rhythms and dysrhythmias: sinus rhythm
[2021-08-26 11:19] VITALS: BP 147/59
== END 2021-08-26 17:00 | disposition home or self-care (01) | DRG 246 ==
LOC: ED 15:29 → 4A 19:52
PROVIDERS: ADMIT Internal Medicine; ATTEND Internal Medicine
PROC: 4A023N7 Measurement of Cardiac Sampling and Pressure, Left Heart, Percutaneous Approach (ICD-10-PCS; 2021-08-20)
PROC: B2111ZZ Fluoroscopy of Multiple Coronary Arteries using Low Osmolar Contrast (ICD-10-PCS; 2021-08-20)
PROC: 4A033BC Measurement of Arterial Pressure, Coronary, Percutaneous Approach (ICD-10-PCS; 2021-08-20)
PROC: 5A1D70Z Performance of Urinary Filtration, Intermittent, Less than 6 Hours Per Day (ICD-10-PCS; 2021-08-20)
PROC: 5A1D70Z Performance of Urinary Filtration, Intermittent, Less than 6 Hours Per Day (ICD-10-PCS; 2021-08-22)
PROC: 027034Z Dilation of Coronary Artery, One Artery with Drug-eluting Intraluminal Device, Percutaneous Approach (ICD-10-PCS; principal; 2021-08-25)
PROC: 5A1D70Z Performance of Urinary Filtration, Intermittent, Less than 6 Hours Per Day (ICD-10-PCS; 2021-08-25)
DX: I25.10 Atherosclerotic heart disease of native coronary artery without angina pectoris (principal); I21.A1 Myocardial infarction type 2; N18.6 End stage renal disease; I12.0 Hypertensive chronic kidney disease with stage 5 chronic kidney disease or end stage renal disease; N25.81 Secondary hyperparathyroidism of renal origin; E87.2 Acidosis; R00.1 Bradycardia, unspecified; Z20.822 Contact with and (suspected) exposure to COVID-19; E87.6 Hypokalemia; Z79.82 Long term (current) use of aspirin; E11.22 Type 2 diabetes mellitus with diabetic chronic kidney disease; Z99.2 Dependence on renal dialysis; I95.9 Hypotension, unspecified; D63.1 Anemia in chronic kidney disease; G90.8 Other disorders of autonomic nervous system; Z95.1 Presence of aortocoronary bypass graft; I16.0 Hypertensive urgency; Z71.3 Dietary counseling and surveillance
CPT/HCPCS: 36415; 70450; 71045; 78452; 80048; 80053; 80061; 80074; 82962; 84443; 84484; 85007; 85025; 85610; 86850; 86900; 86901; 92928; 93005; 93017; 93306; 93454; 93571; 93880; G0378; J1815; A9502; C1769; C1874; C1887; C1894; C8929; C9600; J0360; J0885; J1644; J2250; J2785; J3010; J7030; J7040; J7050; Q9967; U0003